=== PATIENT | female | born 1940 | race Caucasian/White ===

== ENCOUNTER 2020-07-25 02:15 | Outpatient (CLI) | payer MEDICARE, SELFPAY ==
[2020-07-25 17:02] LABS: SARS-CoV-2 RNA PCR Negative
== END 2020-07-25 02:16 | disposition home or self-care (01) ==
LOC: ANHCOVIDDT 02:15
PROVIDERS: PCP Family Medicine; Visit Provider Internal Medicine Critical Care Medicine
DX: Z20.828 Contact with and (suspected) exposure to other viral communicable diseases (principal)
CPT/HCPCS: 87635; C9803; U0003

== ENCOUNTER 2020-07-27 08:38 | Outpatient (CLI) | payer MEDICARE, SELFPAY ==
--- NOTE | 2020-08-21 06:16 | SLEEP_ITS ---
Basic nocturnal polysomnogram. DATE OF STUDY: 07/27/2020 ORDERING PHYSICIAN: Iván Gee M.D. REASON FOR THIS STUDY: Hypersomnia. PRIMARY CARE DOCTOR: Bladimir Myers M.D. HISTORY: This patient is a 80-year-old female, 66 inches tall, 224 pounds with a body mass index of 36.2. She has a history of sleep apnea in the past and did use CPAP previously. Her parts back counter man is referring her due to her current issues. She constantly awakens from sleep feeling short of breath. She denies snoring and says that nobody complains that her snoring is loud. She rarely has trouble sleeping if she has a cold. She denies waking up gasping for breath at night. She does not have breathing problems at night observed by others. She does not sweat excessively at night. She occasionally notices her heart pounding or beating irregularly at night. She does not fall asleep during the day, does not fall asleep involuntarily or while driving. She does not fall asleep during physical effort. She does not have loss of muscle tone with strong emotion. She does not have daytime difficulties due to excessive sleepiness. She constantly feels paralyzed when waking or falling asleep and constantly has vivid dreamlike scenes upon awakening or falling asleep. She is never afraid to go to sleep. She denies having nightmares. She does not remember her dreams. She frequently has racing thoughts, feelings of sadness, depression and anxiety. She does not have muscular tension. She does not notice parts of her body jerking. She constantly kicks at night. She denies crawly achy feelings in her legs at night and denies leg pain at night. She does not have morning jaw pain and does not grind her teeth during sleep. She is not bothered by pain during the day. She is not awakened by pain at night, does not wake up feeling stiff in the morning with sore achy muscles or pain in her neck and spine. She has palpitations and insomnia. She goes to bed at 11:30 p.m. and sleeps until 10:00 a.m. It takes her 1 hour to fall asleep. She is not sure how many times she wakes at night, but she does wake up at night. She denies taking naps. She does feel refreshed after short nap. She feels better in the evening than other times of day. MEDICAL COMORBIDITIES: Coronary artery disease, nonischemic cardiomyopathy, obesity, hypertension, dyslipidemia, history of ESTEBAN on CPAP in the past, GERD, paroxysmal atrial fibrillation, hypothyroidism. HOME MEDICATIONS: 1. Apple cider vinegar 500 mg tablet daily. 2. Calcium citrate 950 mg 1 daily. 3. Carvedilol 6.25 mg b.i.d. 4. Vitamin D3 5000 units daily. 5. Citalopram 40 mg a day. 6. Coenzyme Q10 100 mg daily. 7. Esomeprazole DR 40 mg daily. 8. Ezetimibe 10 mg daily. 9. Furosemide 20 mg a day. 10. Krill oil 1 capsule daily. 11. Losartan 100 mg daily. 12. Magnesium oxide 500 mg daily. 13. Oxybutynin XL 10 mg a day. 14. Potassium chloride ER 20 mEq daily. 15. Turmeric with other herbs 1 tablet daily. 16. Rivaroxaban 20 mg a day. 17. Zolpidem 5 mg at night. EF is 30% to 35% on echo May 06, 2020. HABITS: Alcohol 1 glass of wine a day. Never smoked tobacco. No mention of caffeine. DESCRIPTION OF THE STUDY: On the [place] Sleepiness Scale, her score is 3. This was conducted as an attended study in the lab using the [employer] multiple channel system including EOG, EEG, submental EMG, EKG, nasal and oral airflow using thermistors and nasal pressure sensors, chest and abdominal belts, body position data and pulse oximetry. The study was scored using [facility] guidelines. The duration of the study was 463.2 minutes. The sleep time was 187.8 minutes. Sleep efficiency was low at 40.5%. Sleep latency was prolonged at 151.4 minutes. There was no REM. She woke
== END 2020-07-27 08:39 | disposition home or self-care (01) ==
LOC: ANHCSM 08:39
PROVIDERS: PCP Family Medicine; Visit Provider Internal Medicine Cardiovascular Disease
DX: G47.10 Hypersomnia, unspecified (principal); G47.33 Obstructive sleep apnea (adult) (pediatric); Z68.36 Body mass index [BMI] 36.0-36.9, adult; I48.0 Paroxysmal atrial fibrillation; I42.8 Other cardiomyopathies; I49.5 Sick sinus syndrome; E78.5 Hyperlipidemia, unspecified; Z79.01 Long term (current) use of anticoagulants; Z95.5 Presence of coronary angioplasty implant and graft
CPT/HCPCS: 95810

== ENCOUNTER 2020-09-06 03:35 | Outpatient (CLI) | payer MEDICARE, SELFPAY ==
[2020-09-06 19:05] LABS: SARS-CoV-2 RNA PCR Negative
== END 2020-09-06 03:36 | disposition home or self-care (01) ==
LOC: ANHCOVIDDT 03:35
PROVIDERS: Internal Medicine Critical Care Medicine; PCP Family Medicine; Visit Provider Internal Medicine Cardiovascular Disease
DX: Z01.812 Encounter for preprocedural laboratory examination (principal); Z20.828 Contact with and (suspected) exposure to other viral communicable diseases
CPT/HCPCS: 87635; C9803; U0003

== ENCOUNTER 2020-09-08 02:44 | Day surgery (SDC) | payer MEDICARE, SELFPAY ==
[2020-09-07 15:12] VITALS: BMI 32.5
[2020-09-08] VITALS (11 sets, daily range): BP systolic 102–130; BP diastolic 84–102; PULSE 94–120; RESP 14–21; TEMP 36.4–36.6; O2SAT 93–98
[2020-09-08 07:29] LABS: Basophils Absolute Auto 0.1 K/mm3 (0.0-0.1); Eosinophils Absolute Auto 0.1 K/mm3 (0-0.3); Eosinophils Percent Auto 1.8 % (0-4.4); Hematocrit 43.4 % (37.0-47.0); Hemoglobin 14.4 g/dL (12.0-15.0); Immature Granulocyte Absolute 0.02 K/mm3 (0.00-0.031); Immature Granulocyte Percent A 0.3 % (0-0.5); Lymphocytes Absolute Auto 1.69 K/mm3 (0.9-3.2); Lymphocytes Percent Auto 23.1 % (18.3-44.2); Mean Corpuscular HGB Conc 33.2 g/dl (32-36); Mean Corpuscular Hemoglobin 30.8 pg (26-34); Mean Corpuscular Volume 92.9 fl (80-100); Mean Platelet Volume 9.4 fl (7.4-10.4); Monocytes Absolute Auto 0.7 K/mm3 (0.1-0.6); Monocytes Percent Auto 9.7 % (2.6-8.5); Neutrophils Absolute Auto 4.7 K/mm3 (1.3-6.7); Neutrophils Percent Auto 64.1 % (45.5-73.1); Platelet Count Result 255 k/mm3 (150-375); Red Blood Count 4.67 M/mm3 (4.2-5.4); Red Cell Distribution Width 14.2 % (11.5-14.5); White Blood Count 7.3 K/mm3 (4.5-10.0)
[2020-09-08 07:40] LABS: INR 1.1; Prothrombin Time 13.5 Seconds (11.1-14.7)
[2020-09-08 07:43] LABS: Anion Gap 13 mmol/L (8-16); Blood Urea Nitrogen 19 mg/dL (7-17); Calcium 9.4 mg/dL (8.4-10.2); Carbon Dioxide 25 mmol/L (22-30); Chloride 100 mmol/L (98-107); Estimated CRCL calculation 31 ml/min; Estimated Glomerular Filt Rate 33; Glucose 134 mg/dL (65-105); Potassium 4.1 mmol/L (3.4-5.0); Sodium 138 mmol/L (137-145)
--- NOTE | 2020-09-08 08:45 | WPDHPUPDATE1 ---
History and Physical Update Update Date/Time: 09/08/20 08:45 History and Physical has been reviewed, including an updated exam of the patient. There are NO changes in the patient's condition. Risks, benefits, and alternatives have been discussed and questions answered. Patient agrees to proceed with procedure. Please see moderate sedation physical examination for history and physical update addendum.
--- NOTE | 2020-09-08 08:45 | WPDMODSED ---
Moderate Sedation Note-Pt Data Patient Data Diagnosis: Abnormal stress test, angina, CAD Present Complaint: none Procedure to be performed/Plan: left heart catheterization with selective left and right coronary angiography with left ventriculography and hemodynamics and possible percutaneous intervention and stent implantation Allergies Allergy/AdvReac Type Severity Reaction Status Date / Time povidone-iodine Allergy Mild blisters Verified 07/02/18 08:19 Btryciu-Ddd-Wsz Reductase Allergy Unknown ACHY Verified 07/02/18 08:19 Inhibitor MUSCLES Home Medications Medication Instructions Recorded Confirmed Type calcium citrate 500 mg PO BID 09/07/20 09/07/20 History carvedilol [Coreg] 6.25 mg PO 5XW 09/07/20 09/07/20 History cholecalciferol (vitamin D3) 125 mcg PO BID 09/07/20 09/07/20 History [Vitamin D3] citalopram 40 mg PO DAILY 09/07/20 09/07/20 History coenzyme L53-vptadmt E [CoQ10 SG 1 cap PO DAILY 09/07/20 09/07/20 History 100] ezetimibe 10 mg PO DAILY 09/07/20 09/07/20 History furosemide [Lasix] 20 mg PO AC 09/07/20 09/07/20 History uuzna-hv-8-cjc-dvd-zcdxfuf-ast 1 cap PO BID 09/07/20 09/07/20 History [krill oil] losartan [Cozaar] 50 mg PO DAILY 09/07/20 09/07/20 History magnesium 1,500 mg PO DAILY 09/07/20 09/07/20 History oxybutynin chloride 10 mg PO DAILY 09/07/20 09/07/20 History potassium chloride [Klor-Con M20] 20 meq PO DAILY 09/07/20 09/07/20 History rivaroxaban [Xarelto] 20 mg PO DAILY 09/07/20 09/07/20 History zolpidem 5 mg PO DAILY PRN 09/07/20 09/07/20 History Current Medications: Active Medications Sodium Chloride (Normal Saline Iv) 500 mls @ 100 mls/hr IV CONT .Q5H SHELLIE Sedation/Anesthesia: No previous sedation/anesthesia problems (including family history). [facility] Past Medical History Medical History CAD (coronary artery disease) Chronic kidney disease Dyslipidemia Hypertension Paroxysmal atrial fibrillation Social History Social History Smoking packs per day: 0 Smoking cigarettes per day: 0.0 Second hand tobacco smoke exposure: No Alcohol intake: current Drinks per week: 0 Substance use: never Substance use type: does not use Living arrangements: with family Gender identity (if verbalized by the patient): Female Spiritual care concerns: No Mod Sed Physical Exam Physical Exam Pre Procedural Exam: Normal: Appearance, Eyes, Ears, Nose, Neck ( supple, normal range of motion), Throat ( posterior hypopharynx clear, nonerythematous), Airway ( clear, normal anatomy), Lungs ( lungs clear to auscultation bilaterally), Heart Size, Heart Rate, Neuro Exam, Abdomen, Liver, Kidneys, Extremities and Skin and Variation: Heart Rhythm ( irregular irregular) Hours since solid foods: 12 Hours since liquid intake: 12 Internal Medicine - PN: Obj Da Vital Signs Vital Signs: Vital Signs - 24 hr 09/08/20 07:21 Temperature 36.4 C Pulse Rate 120 H Respiratory Rate 14 Blood Pressure 129/102 H Pulse Oximetry 97 Meds/Results Medications: Active Medications Generic Name Dose Route Start Last Admin Trade Name Freq PRN Reason Stop Dose Admin Sodium Chloride 500 mls @ 100 mls/hr 09/08/20 06:00 Normal Saline Iv IV CONT .Q5H SHELLIE Labs CBC & Chem 7: 09/08/20 07:18 09/08/20 07:18 Labs: Laboratory Results - last 24 hr 09/08/20 09/08/20 09/08/20 07:18 07:18 07:18 WBC 7.3 RBC 4.67 Hgb 14.4 Hct 43.4 MCV 92.9 MCH 30.8 MCHC 33.2 RDW 14.2 Plt Count 255 MPV 9.4 Immature Gran % (Auto) 0.3 Neut % (Auto) 64.1 Lymph % (Auto) 23.1 Butts % (Auto) 9.7 H Eos % (Auto) 1.8 Baso % (Auto) 1.0 Lymph # (Auto) 1.69 Butts # (Auto) 0.7 H Eos # (Auto) 0.1 Baso # (Auto) 0.1 Abs Immat Gran (auto) 0.02 Absolute Neuts (auto) 4.7 Absolute Nucleated RBC 0.0 Nucleat
--- NOTE | 2020-09-08 09:50 | PM.PROC ---
Procedure Note - Detailed Date of procedure: 09/08/20 Pre-op diagnosis: Abnormal Stress Test CAD Post-op diagnosis: same Procedure performed: left heart catheterization with selective left and right coronary angiography with left ventricular hemodynamics Description of procedure: BRIEF HISTORY OF PRESENT ILLNESS: Patient is a pleasant 80-year-old female with a history of atrial fibrillation, hypertension, dyslipidemia, statin myopathy, ESTEBAN on CPAP, CAD status post 2.75 x 15 mm drug-eluting stent to mid LAD 2016, history of nonischemic cardiomyopathy who complains of progressive fatigue, exertional dyspnea, chest discomfort who underwent noninvasive ischemic evaluation which revealed anterior, anteroseptal, apical ischemia with small fixed component EF 34% referred for left heart catheterization for delineation of her coronary anatomy. She had a stress test in 2019 interpreted as normal without ischemia. PROCEDURES PERFORMED: 1. Left heart catheterization 2. Selective left and right coronary angiography 3. Left ventricular hemodynamics 4. Moderate/conscious sedation administration CATHETERS UTILIZED: Left coronary system- 5 Panamanian JL4 catheter Right coronary system- 5 Panamanian JR4 catheter Left ventriculography and hemodynamics- 5 [place]amanian angled pigtail catheter PROCEDURE IN DETAIL: After verbal and written informed consent was obtained the patient, risks, benefits, and alternatives explained in detail the patient agreed to proceed with the plan of care as outlined above. The patient was subsequently brought to the cardiac catheterization lab, placed on the cardiac catheterization table, and prepped and draped in the usual sterile fashion. Utilizing approximately 18cc of 1% subcutaneous Lidocaine, the right groin was then locally anesthetized. Utilizing the modified Seldinger technique, a 5 [place]amanian arterial vascular access sheath was inserted in the right common femoral artery easily and without complications. Through this access, coronary angiography was subsequently obtained in multiple standard re-projections. Following this, a 5 [place]ian angled pigtail catheter was advanced retrograde across aortic valve into the cavity of the left ventricle. Left ventriculography was not performed in the interest of sparing contrast due to renal insufficiency, however, pullback across aortic valve was subsequently recorded. The vascular access sheath and angiographic catheters were flushed before and after catheter exchanges. At the conclusion of the diagnostic portion of the procedure, all angiographic guidewires and catheters were removed and the 5 [place]amanian arterial vascular access sheath was then pulled and satisfactory hemostasis was achieved using manual compression. There no complications noted at the conclusion of the diagnostic portion of the study. MODERATE SEDATION/ANESTHESIA ADMINISTRATION: Patient reports no prior problems with sedation/anesthesia. Please see pre-sedation noted for physical examination documentation. Sedation start time was 0855 and end time was 0932 for a total intra-service/procedure face-face time of 37 minutes. A total of 1 mg intravenous Versed and a total of 50 mcg intravenous Fentanyl, and 50mg IV Benadryl was administered for moderate sedation. Moderate sedation was administered by qualified/certified observer Antonietta Richards RN under my supervision with intra-procedure [id number] observation and management throughout the entirety of the procedure. There were no other issues or complications and patient tolerated the procedure well. See post-anesthesia documentation. Anesthesia: local and other (moderate/conscious sedation) Surgeon: Iván Gee MD Estimated blood loss (mL): 10 Drains: No Packing: No Pathology: none sent Complications: No immediate complications Condition: stable Disposition: observation Findings: CORONARY ANGIOGRAPHY: The LEFT MAIN arose from the left coronary cusp with approx
--- NOTE | 2020-09-08 11:39 | SUR.PHASEII ---
1030-Sheath pulled completed by Malissa Loza RN. Groin soft and non-tender, no evidence of bleeding or hematoma noted. Moderate right RT pulse noted. Will continue to monitor.
--- NOTE | 2020-09-08 11:42 | SUR.PHASEII ---
1130-pt up to thirty degrees. No distress noted. AOx4. Groin soft and non-tender, no evidence of bleeding or hematoma noted. Will continue to monitor.
== END 2020-09-08 14:30 | disposition home or self-care (01) ==
PROVIDERS: PCP Family Medicine; Visit Provider Internal Medicine Cardiovascular Disease
PROC: 4A023N7 Measurement of Cardiac Sampling and Pressure, Left Heart, Percutaneous Approach (ICD-10-PCS; CPT 93452; principal; 2020-09-08 08:30)
DX: I25.10 Atherosclerotic heart disease of native coronary artery without angina pectoris (principal); R94.39 Abnormal result of other cardiovascular function study; I48.0 Paroxysmal atrial fibrillation; I12.9 Hypertensive chronic kidney disease with stage 1 through stage 4 chronic kidney disease, or unspecified chronic kidney disease; N18.9 Chronic kidney disease, unspecified; E78.5 Hyperlipidemia, unspecified; G47.33 Obstructive sleep apnea (adult) (pediatric); Z95.5 Presence of coronary angioplasty implant and graft; Z79.01 Long term (current) use of anticoagulants
CPT/HCPCS: 36415; 80048; 85025; 85610; 93458; C1887; C1894; J0461; J1200; J1644; J2250; J3010; J7040

== ENCOUNTER 2020-09-12 11:01 | Outpatient (CLI) | payer MEDICARE, SELFPAY ==
[2020-09-12 11:56] LABS: Anion Gap 11 mmol/L (8-16); Blood Urea Nitrogen 29 mg/dL (7-17); Calcium 8.8 mg/dL (8.4-10.2); Carbon Dioxide 23 mmol/L (22-30); Chloride 98 mmol/L (98-107); Estimated Glomerular Filt Rate 36; Glucose 120 mg/dL (65-105); Potassium 3.9 mmol/L (3.4-5.0); Sodium 132 mmol/L (137-145)
== END 2020-09-12 11:02 | disposition home or self-care (01) ==
LOC: ANHLAB 11:05
PROVIDERS: PCP Family Medicine; Visit Provider Nurse Practitioner Adult Health
DX: I25.10 Atherosclerotic heart disease of native coronary artery without angina pectoris (principal); I48.0 Paroxysmal atrial fibrillation; N18.9 Chronic kidney disease, unspecified
CPT/HCPCS: 36415; 80048

== ENCOUNTER 2020-09-15 03:04 | Outpatient (CLI) | payer MEDICARE, SELFPAY ==
[2020-09-15 18:02] LABS: SARS-CoV-2 RNA PCR Negative
== END 2020-09-15 03:05 | disposition home or self-care (01) ==
LOC: ANHCOVIDDT 03:04
PROVIDERS: PCP Family Medicine; Visit Provider Internal Medicine Critical Care Medicine
DX: Z01.812 Encounter for preprocedural laboratory examination (principal); Z20.828 Contact with and (suspected) exposure to other viral communicable diseases
CPT/HCPCS: 87635; C9803; U0003

== ENCOUNTER 2020-09-18 08:43 | Outpatient (CLI) | payer MEDICARE, SELFPAY ==
--- NOTE | 2020-10-18 14:11 | WPDSLEEPSTUD ---
Sleep Study Date of Study: 09/18/20 Ordering Provider: Iván Gee MD Interpreting Physician: Natasha Cornejo MD Sleep Study Type: CPAP Titration Height: 1.68 m Weight: 90.718 kg Body Mass Index: 32.3 Neck Circumference: 40.64 cm Nichols: 3 Reason for Sleep Study CPAP titration for sleep apnea. She had a nocturnal polysomnogram on July 27, 2020 showing severe obstructive sleep apnea with an AHI of 46.3 worse in the supine position. The supine AHI was 69.4. Her EF is low at 30% therefore she had a CPAP titration in the sleep lab. She also had a prolonged sleep latency on the initial study. Sleep History Aster Nevarez is a 80-year-old female with a history of sleep apnea and did use CPAP previously. Her home security alarm installer is referring her due to her current issues. She constantly awakens from sleep feeling short of breath. She denies snoring and says that nobody complains that her snoring is loud. She rarely has trouble sleeping if she has a cold. She denies waking up gasping for breath at night. She does not have breathing problems at night observed by others. She does not sweat excessively at night. She occasionally notices her heart pounding or beating irregularly at night. She does not fall asleep during the day, does not fall asleep involuntarily or while driving. She does not fall asleep during physical effort. She does not have loss of muscle tone with strong emotion. She does not have daytime difficulties due to excessive sleepiness. She constantly feels paralyzed when waking or falling asleep and constantly has vivid dreamlike scenes upon awakening or falling asleep. She is never afraid to go to sleep. She denies having nightmares. She does not remember her dreams. She frequently has racing thoughts, feelings of sadness, depression and anxiety. She does not have muscular tension. She does not notice parts of her body jerking. She constantly kicks at night. She denies crawly achy feelings in her legs at night and denies leg pain at night. She does not have morning jaw pain and does not grind her teeth during sleep. She is not bothered by pain during the day. She is not awakened by pain at night, does not wake up feeling stiff in the morning with sore achy muscles or pain in her neck and spine. She has palpitations and insomnia. She goes to bed at 11:30 p.m. and sleeps until 10:00 a.m. It takes her 1 hour to fall asleep. She is not sure how many times she wakes at night, but she does wake up at night. She denies taking naps. She does feel refreshed after short nap. She feels better in the evening than other times of day. MEDICAL COMORBIDITIES: Coronary artery disease, nonischemic cardiomyopathy, obesity, hypertension, dyslipidemia, history of ESTEBAN on CPAP in the past, GERD, paroxysmal atrial fibrillation, hypothyroidism. [facility] Past Medical History Medical History CAD (coronary artery disease) [facility] 09/08/20 with 50% proximal and mid LAD, LCX 40-50% stenosis, nondominant small caliber RCA with widely patent previously placed stent mid LAD. Again identified is the subtotal occlusion 99% of the 2nd obtuse marginal branch with [id number] collateral filling largely unchanged compared to [facility] 2017. CHF (congestive heart failure) Chronic kidney disease Depression with anxiety Dyslipidemia Hypertension Hypothyroid Mitral regurgitation ESTEBAN (obstructive sleep apnea) Paroxysmal atrial fibrillation Surgical History Surgical History History of cataract surgery History of cholecystectomy History of tonsillectomy Family History Family History Father Acute myocardial infarction Sibling Diabetes mellitus Mother Dementia Social History Social History Social History: Patient smoked 2 packs per day fo
[2020-10-18 14:20] VITALS: BMI 32.3
== END 2020-09-18 08:44 | disposition home or self-care (01) ==
LOC: ANHCSM 08:51
PROVIDERS: PCP Family Medicine; Visit Provider Internal Medicine Cardiovascular Disease
DX: G47.33 Obstructive sleep apnea (adult) (pediatric) (principal)
CPT/HCPCS: 95811

== ENCOUNTER 2020-10-11 01:05 | Inpatient (IN) | payer MEDICARE, SELFPAY ==
[2020-10-11] VITALS (24 sets, daily range): BP systolic 90–129; BP diastolic 67–108; PULSE 80–120; RESP 18–28; TEMP 35.9–36.8; O2SAT 94–100; BMI 32.3
--- NOTE | 2020-10-11 | ECHO_ITS ---
Patient Info Name: Aster Nevarez Age: 80 years : 1940 Gender: Female Ht: 66 in Wt: 200 lbs BSA: 2.09 m2 HR: 98 bpm BP: 90 / 78 mmHg Heart Rhythm: Atrial Fibrillation Technical Quality: Good Exam Date: 10/11/2020 12:49 PM Exam Location: [facility] Pulmonary Exam Room: 201 Patient Status: Inpatient Admit Date: 10/11/2020 Staff Ordering Physician: Arias Garces MD Snap Attacher: Latanya Soto RCS Attending Provider: Arias Garces MD Exam Type: CA echo dop color flow w con Study Info Indications - cad htn cpap sob Complete two-dimensional, color flow and Doppler transthoracic echocardiogram is performed with contrast to opacify the left ventricle and to improve the deliniation of the left ventricle endocardial borders. Contrast/Agitated Saline Contrast/Ag. Saline: Definity Amount: 1.00 ml Summary 1. Left ventricular chamber dimension is moderately enlarged. 2. Left ventricular systolic function is severely reduced, estimated at <15%. 3. There is no increased left ventricular wall thickness. 4. The left ventricular diastolic function is indeterminate. 5. There is no thrombus visualized in the left ventricle. 6. Right ventricular chamber dimension is mildly enlarged. 7. Right ventricular systolic function is reduced. 8. Left atrial chamber dimension is severely enlarged. 9. Right atrial chamber dimension is moderately enlarged. 10. There is moderate aortic valve calcification. 11. There is moderate to severe mitral valve regurgitation. 12. There is moderate to severe tricuspid valve regurgitation. 13. Moderate pulmonary hypertension, estimated pulmonary arterial systolic pressure is 53 mmHg. Left Ventricle Left ventricular chamber dimension is moderately enlarged. Left ventricular systolic function is severely reduced, estimated at <15%. There is no increased left ventricular wall thickness. The left ventricular diastolic function is indeterminate. There is no thrombus visualized in the left ventricle. Right Ventricle Right ventricular chamber dimension is mildly enlarged. Right ventricular systolic function is reduced. Left Atria Left atrial chamber dimension is severely enlarged. Right Atria Right atrial chamber dimension is moderately enlarged. Atrial Septum Intact interatrial septum visualized by color flow imaging. Aortic Valve The aortic valve is trileaflet. There is no aortic valve stenosis. There is trace aortic valve regurgitation. There is moderate aortic valve calcification. Pulmonic Valve The pulmonic valve is normal. There is no pulmonic valve stenosis. There is mild pulmonic regurgitation. Mitral Valve The mitral valve has calcified annulus. There is no mitral valve stenosis. There is moderate to severe mitral valve regurgitation. Tricuspid Valve The tricuspid valve leaflets are normal. There is no significant tricuspid valve stenosis. There is moderate to severe tricuspid valve regurgitation. Moderate pulmonary hypertension, estimated pulmonary arterial systolic pressure is 53 mmHg. Pericardium/Pleural The pericardium appears normal. There is small pericardial effusion. Inferior Vena Cava Dilated inferior vena cava with <50% collapse upon inspiration consistent with elevated right atrial pressure, 15 mmHg. Aorta The aortic root size at the sinus of Valsalva is normal. There is mild aortic atherosclerosis. Left Ventricular Out
--- NOTE | ~2020-10-11 | XR_ITS ---
XR chest 1V portable DATE: 10/14/2020 05:57 INDICATION: Congestive heart failure, dyspnea. Hypotension. TECHNIQUE: Portable AP chest on 10/11 2020 at 0532 hours COMPARISON: 10/12/2020 portable AP chest at [address] abdomen pelvis FINDINGS: Cardiomegaly. Aortic calcification, ectasia. Increased retrocardiac density likely due to hiatal hernia, which was demonstrated on 07/01/2017 CT ab domen examination. There is left lower lobe infiltrate and/atelectasis. The lungs otherwise appear essentially clear. No pleural effusion or pulmonary vascular congestion or pneumothorax. IMPRESSION: Cardiomegaly, aortic atherosclerosis Large hiatal hernia Left lower lobe infiltrate and/atelectasis Reviewed, dictated and finalized at location A. IC FLOOR LAYER
--- NOTE | ~2020-10-11 | XR_ITS ---
XR chest 1V portable DATE: 10/12/2020 06:47 INDICATION: Congestive heart failure, shortness of breath TECHNIQUE: Portable AP chest on 10/12/2020 at 0525 hours COMPARISON: 10/11/2020 portable AP chest at 0138 hours FINDINGS: Cardiomegaly. There is pulmonary vascular redistribution suggesting pulmonary venous hypert ension. Aortic calcification, ectasia and tortuosity. The lungs are hyperinflated, suggesting possible COPD. The elderly chest however considerably this ap pearance clinical correlation is necessary. There is mild infiltrate or atelectasis in the lower lung zones, left greater than right. Diffuse osteopenia. IMPRESSION: Cardiomegaly, pulmonary vascular redistribution, suggesting mild congestive heart failure ; this appears mildly improved since 10/11/2020 Infiltrate and/atelectasis in the lower lung zones, left greater than right, stable or mildly improve d since 10/11 Reviewed, dictated and finalized at location A. TOSE LOADER IMPRESSION: Cardiomegaly, pulmonary vascular redistribution, suggesting mild co ngestive heart failure; this appears mildly improved since 10/11/2020 Infiltrate and/atelectasis in the lower lung zones, left greater than right, st able or mildly improved since 10/11
--- NOTE | ~2020-10-11 | XR_ITS ---
XR chest 1V portable 10/11/2020 01:40 Indication: Shortness of breath Procedure: AP portable chest Comparison: Comparison to multiple prior studies sequentially, with oldest reviewed study dated . Findings: Cardiomegaly. Diffuse bilateral airspace disease. Large hiatal hernia. There is atheroscler osis. No significant effusion or pneumothorax. Impression: 1: Diffuse bilateral airspace disease may represent edema or pneumonia. 2: Cardiomegaly. 3: Large hiatal hernia. Reviewed, dictated and finalized at location A. IUM BURNER Impression: 1: Diffuse bilateral airspace disease may represent edema or pneumonia. 2: Cardiomegaly. 3: Large hiatal hernia.
--- NOTE | ~2020-10-11 | US_ITS ---
EXAMINATION: US art doppler w press LE BI DATE: 10/11/2020 11:43 CHARGE LOADER INDICATION: Poor peripheral pulses TECHNIQUE: Segmental pressures and plethysmographic and Doppler waveforms of the brachial and lower e xtremity arteries were obtained. COMPARISON: None. FINDINGS: Right and left brachial artery pressures of 109 mm Hg and 113 mm Hg, respectively, are concordant (no rmal difference <= 30 mmHg). The right high-thigh pressure index is 1.26 (normal > 1.2). The right ankle-brachial index (RED) is 0 .95 (normal >= 0.9-1.0). The right great toe-brachial index (TBI) is 0.74 (normal >= 0.60). The right lower extremity segmental pressure gradients are normal (normal gradients <= 20-30 mmHg between pio cent levels on the same leg or the same levels on the two legs). Arterial Doppler waveforms are bipha sic. The left high-thigh pressure index is 1.27. The left RED is 1.02. The left TBI is 0.85. The left lowe r extremity segmental pressure gradients are normal. Arterial Doppler waveforms are biphasic. IMPRESSION: 1. Normal bilateral lower extremity arterial Doppler. Reviewed, dictated and finalized at location A. GE LOADER
--- NOTE | 2020-10-11 01:19 | ECG_ITS ---
Measurements Intervals [place] Rate: 106 P: GA: 0 QRS: -72 QRSD: 142 T: 85 QT: 399 QTc: 531 Interpretive Statements ATRIAL FIBRILLATION WITH RAPID VENTRICULAR RESPONSE LEFT AXIS DEVIATION LEFT BUNDLE BRANCH BLOCK ABNORMAL ECG Electronically Signed On 10-11-2020 7:26:44 [employer] by Efraín Almendarez D.O.
--- NOTE | 2020-10-11 01:20 | ED.SOB ---
HPI - SOB/Dyspnea General Chief Complaint: Shortness of Breath/Dyspnea Stated Complaint: SOB History of Present Illness HPI Narrative: 80 yo female with h/o chf, a-fib presents to the ED for SOB. She reports that she awoke early this morning very SOB and with heart racing. She says that she has had these symptoms for a while. She was diagnosed with atrial fibrillation. Symptoms have been getting worse. Noted to be cyanotic with low O2 sat by EMS and placed on NRB. No CP, fever, cough. Related Data Home Medications Medication Instructions Recorded Confirmed Xarelto 20 mg PO DAILY 09/07/20 09/07/20 calcium citrate 500 mg PO BID 09/07/20 09/07/20 cholecalciferol (vitamin D3) 125 mcg PO BID 09/07/20 09/07/20 [Vitamin D3] coenzyme Q21-tlmrjpm E 1 cap PO DAILY 09/07/20 09/07/20 ezetimibe 10 mg PO DAILY 09/07/20 09/07/20 furosemide [Lasix] 20 mg PO DAILY 09/07/20 09/07/20 sydaa-qy-9-aod-khe-jtskrin-ast 2 cap PO DAILY 09/07/20 09/07/20 [krill oil] losartan [Cozaar] 50 mg PO DAILY 09/07/20 09/07/20 magnesium 1,500 mg PO DAILY 09/07/20 09/07/20 oxybutynin chloride 10 mg PO DAILY 09/07/20 09/07/20 potassium chloride [Klor-Con M20] 20 meq PO DAILY 09/07/20 09/07/20 zolpidem 5 mg PO DAILY PRN 09/07/20 09/07/20 amiodarone 400 mg PO BID 10/11/20 apple cider vinegar 1,000 mg PO BID 10/11/20 esomeprazole magnesium 40 mg PO DAILY 10/11/20 Allergies Allergy/AdvReac Type Severity Reaction Status Date / Time povidone-iodine Allergy Mild blisters Verified 10/11/20 01:48 Bkrndwu-Dyy-Lhx Reductase Allergy Unknown ACHY Verified 10/11/20 01:48 Inhibitor MUSCLES Review of Systems Review of Systems: All systems reviewed & are unremarkable except as noted in HPI and below Constitutional: Constitutional: Denies chills and Denies fever(s) Cardiovascular: Cardiovascular: Denies chest pain and Reports rapid heart rate Respiratory: Respiratory: Reports cough and Reports dyspnea Gastrointestinal: Gastrointestinal: Denies nausea and Denies vomiting Musculoskeletal: Musculoskeletal: Denies back pain Neurologic: Reports weakness Endocrine: Endocrine: Denies polydipsia [facility] Past Medical History Medical History CAD (coronary artery disease) Chronic kidney disease Dyslipidemia Hypertension Paroxysmal atrial fibrillation Social History Social History Smoking packs per day: 0 Smoking cigarettes per day: 0.0 Smoking status: Never smoker Second hand tobacco smoke exposure: No Alcohol intake: current Drinks per week: 0 Substance use: never Substance use type: does not use Gender identity (if verbalized by the patient): Female Spiritual care concerns: No Exam Const: General: no acute distress, alert and ill appearing Nutritional Appearance: obese Orientation/consciousness: patient oriented x3 HENMT: Other: cyanosis of nose, lips, and ears Eyes: Pupils: Equal, round and reactive pupils present Resp: Effort & Inspection: tachypneic Auscultation: rales Cardio: Rate: tachycardic Rhythm: abnormal rhythm irregularly irregular GI: GI Palp: Yes Soft to palpation and No Tenderness to palpation present (GI) Skin: Other: cool extremities Neuro: General: patient oriented x3 and moves all extremities Speech: normal speech Extrem: General: edema (2+ to bilateral feet and ankles) Course Vital Signs Vital signs: Vital Signs Blood Pressure 98/67 L 10/11/20 00:56 Pulse Oximetry 94 10/11/20 00:56 Temperature 36.8 C 10/11/20 01:46 Pulse Rate 94 10/11/20 01:46 Respiratory Rate 21 H 10/11/20 01:46 Blood Pressure 104/87 10/11/20 01:46 Pulse Oximetry 94 10/11/20 01:46 MDM - SOB/Dyspnea MDM Narrative Medical decision making narrative: She has is in a-fib w/ RVR which is causing a CHF exacerbation. Rate is is moderately controlled and BP is at the low end so I will not
[2020-10-11 01:39] LABS: Basophils Absolute Auto 0.1 K/mm3 (0.0-0.1); Eosinophils Absolute Auto 0.2 K/mm3 (0-0.3); Eosinophils Percent Auto 2.2 % (0-4.4); Hematocrit 43.4 % (37.0-47.0); Hemoglobin 14.1 g/dL (12.0-15.0); Immature Granulocyte Absolute 0.03 K/mm3 (0.00-0.031); Immature Granulocyte Percent A 0.4 % (0-0.5); Lymphocytes Absolute Auto 1.76 K/mm3 (0.9-3.2); Lymphocytes Percent Auto 26.1 % (18.3-44.2); Mean Corpuscular HGB Conc 32.5 g/dl (32-36); Mean Corpuscular Hemoglobin 29.2 pg (26-34); Mean Corpuscular Volume 89.9 fl (80-100); Mean Platelet Volume 9.9 fl (7.4-10.4); Monocytes Absolute Auto 0.8 K/mm3 (0.1-0.6); Monocytes Percent Auto 11.1 % (2.6-8.5); Neutrophils Percent Auto 59.2 % (45.5-73.1); Platelet Count Result 236 k/mm3 (150-375); Red Blood Count 4.83 M/mm3 (4.2-5.4); White Blood Count 6.7 K/mm3 (4.5-10.0)
[2020-10-11 01:53] LABS: Anion Gap 10 mmol/L (8-16); Blood Urea Nitrogen 24 mg/dL (7-17); Calcium 9.1 mg/dL (8.4-10.2); Carbon Dioxide 22 mmol/L (22-30); Chloride 103 mmol/L (98-107); Estimated Glomerular Filt Rate 31; Glucose 131 mg/dL (65-105); Partial Thromboplastin Time 46.5 SECONDS (22.3-36.8); Potassium 5.4 mmol/L (3.4-5.0); Prothrombin Time 52.5 Seconds (11.1-14.7); Sodium 135 mmol/L (137-145)
[2020-10-11 02:05] LABS: INR 5.9; NT Pro B Type Natriuretic Pept 17400 PG/ML (5-100); Troponin I < 0.012 ng/mL (0.000-0.034)
[2020-10-11] MEDS: FUROSEMIDE INJ 40 MG/4 ML VIAL IV PUSH ×2 (03:25→20:29)
--- NOTE | 2020-10-11 05:39 | ADMGEN ---
This patient, Aster Nevarez, was admitted to IMU Room 201-01. Patient/family oriented to hospital policies and general routines including ID bracelet, bed and alarms, visiting hours, pain management, procedures, bathroom and other care routines, personal items, smoking policy, room service/diet, and visiting hours. Information on how to activate the Rapid Response Team has been discussed. Patient/Family are encouraged to report perceived risks to care and to ask questions if they do not understand what they are told or what they should do.
[2020-10-11 08:02] LABS: Anion Gap 13 mmol/L (8-16); Blood Urea Nitrogen 24 mg/dL (7-17); Calcium 9.2 mg/dL (8.4-10.2); Carbon Dioxide 21 mmol/L (22-30); Chloride 103 mmol/L (98-107); Estimated CRCL calculation 28 ml/min; Estimated Glomerular Filt Rate 29; Glucose 113 mg/dL (65-105); Sodium 137 mmol/L (137-145)
--- NOTE | 2020-10-11 09:08 | PM.IMHP ---
H&P: HPI History of Present Illness Date/Time: 10/11/20 09:08 Chief complaint: a-fib w/RVR, CHF exacerbation Narrative: Aster Nevarez is a 80 year old female with CAD, HTN and CHF here for SOB. Patient states that over the past 4-5 nights, she has had orthopnea symptoms. She denies any lower extremity edema. She has been compliant with her CPAP. She did have a sleep study over a month ago showing severe obstructive symptoms with plans for further titration of her Pap therapy. This has not been completed yet however. She denies any fever or chills. There has been no weight changes. She does have a dry cough that has been going on for few weeks now. She denies any chest pain. No exposure to COVID. She does have paroxysmal atrial fibrillation. She does have frequent palpitations usually worse with activity. She is scheduled for an ablation on 10/30/2020 at [facility]. She is compliant with her anticoagulation. She denies any recent anosmia or dysgeusia. No headaches or sore throat. No nausea, vomiting or diarrhea. No melena or hematochezia. No epistaxis. No dysuria or hematuria. No claudication symptoms. Family has been telling the patient she needs to go to the hospital past few days but she has refused. Last evening around 1030pm she went to bed but every time she tried to fall sleep she was awoken with shortness of breath. At this point she contacted 911. On EMS arrival patient had a blood pressure of 180/130 and a pulse of 100. She was 70% on room air. She required 15L non-rebreather mask to improve her saturations. She is brought to the emergency room evaluation. Blood pressure was 98/67 with a pulse of 106. She was 94% on a non-rebreather mask. BNP was [address]. EKG reviewed showing atrial fibrillation with RVR rate of 106 and a left bundle branch block. It is unclear if the bundle branch block is new or old. INR 5.9. Potassium was 5.4. Troponin x1 was negative. CXR reviewed personally and showed diffuse bilateral airspace disease either edema versus pneumonia. She was given Lasix 40 mg IV once. She states she did not have excessive voiding with this treatment. She was admitted for further care Review of Systems Review of Systems: All systems reviewed & are unremarkable except as noted in HPI and below PMFSH Past Medical History Medical History (Updated 10/14/20 @ 10:54 by Floresita Kennedy MD) CAD (coronary artery disease) [facility] 09/08/20 with 50% proximal and mid LAD, LCX 40-50% stenosis, nondominant small caliber RCA with widely patent previously placed stent mid LAD. Again identified is the subtotal occlusion 99% of the 2nd obtuse marginal branch with [id number] collateral filling largely unchanged compared to [facility] 2017. CHF (congestive heart failure) Chronic kidney disease Depression with anxiety Dyslipidemia Hypertension Hypothyroid Mitral regurgitation ESTEBAN (obstructive sleep apnea) Paroxysmal atrial fibrillation Surgical History Surgical History History of cataract surgery History of cholecystectomy History of tonsillectomy Family History Family History Father Acute myocardial infarction Sibling Diabetes mellitus Mother Dementia Social History Social History Social History: Patient smoked 2 packs per day for 10 years quit in 1969. She drinks 1-2 alcoholic drinks per week. No drug use. She is a full code. She nominated her to be the individual who would make medical decisions for her if she is not able. She lives at home with her and a friend of the family. Smoking packs per day: 2 Smoking cigarettes per day: 40.0 Years smoked: 29 Smoking pack-years: 58.00 Smoking status: Former smoker Tobacco type: cigarettes Second hand tobacco smoke exposure: Yes Alcohol intake: current Drinks per w
[2020-10-11] MEDS: AMIODARONE HCL 200 MG TABLET 400 MG PO (12:03)
[2020-10-11] MEDS: METOPROLOL SUCCINATE EXT REL 50 MG TABCR PO (12:03)
[2020-10-11] MEDS: CALCIUM CARBONATE (OSCAL) 500 MG TABLET 1000 MG PO ×2 (12:03→16:18)
[2020-10-11] MEDS: PANTOPRAZOLE 40 MG TABLET PO (12:03)
[2020-10-11] MEDS: TOLNAFTATE 1% POWDER 45 GM BTL 1 APPLIC TOPICAL ×2 (12:04→20:30)
[2020-10-11] MEDS: EZETIMIBE 10 MG TABLET PO (12:04)
[2020-10-11] MEDS: PERFLUTREN LIPID MICROSPHERES 1.5 ML VIAL DILUTED TO 10 ML TOTAL VOLUME IV PUSH (13:23)
--- NOTE | 2020-10-11 14:19 | PM.CNCAR ---
Assessment and Plan Assessment and plan (1) Atrial fibrillation with RVR: Code(s): I48.91 - Unspecified atrial fibrillation Status: Acute Assessment and Plan: Will start her on amiodarone drip without bolus. Hold oral amiodarone for now. Resume Xarelto but at a lower dose of 15 mg daily given her renal failure. This may need to be increased back up to 20 mg daily depending on how her kidney function improved. Her supratherapeutic INR means very little with direct oral anticoagulants. (2) CAD (coronary artery disease): Code(s): I25.10 - Atherosclerotic heart disease of circle coronary artery without angina pectoris Status: Acute Assessment and Plan: As detailed above. moderate disease. (3) Hypertension: Code(s): I10 - Essential (primary) hypertension Status: Acute Assessment and Plan: Controlled (4) Dyspnea: Code(s): R06.00 - Dyspnea, unspecified Status: Acute Assessment and Plan: Probably related to systolic heart failure but cannot exclude other etiologies ED including even Coronavirus. (5) CHF (congestive heart failure): Code(s): I50.9 - Heart failure, unspecified Status: Acute Assessment and Plan: 2D echocardiogram with Doppler. Likely systolic in etiology. Possibly related tachycardic induced versus left bundle-branch block etiology. Metoprolol succinate 25 mg p.o. daily and up titrate as able. Reduce losartan 25 mg p.o. daily because of acute renal failure. History of Present Illness History of Present Illness Consult date/time: 10/11/20 14:19 Requesting physician: Arias Garces MD Consult reason: atrial fibrillation Reason For Visit: a-fib w/RVR, CHF exacerbation Narrative: Date of service 10/11/2020 Reason for consultation: Atrial fibrillation History patient is a 80-year-old female with history of paroxysmal atrial fibrillation. She is scheduled for cardiac ablation by Dr. Alexandre at [facility] on October 30. Patient is states that she has been feeling poorly for the past 4 or 5 weeks. She has been in atrial fibrillation more than not as of recent. She feels palpitations. She has been coughing for the past 2-3 weeks. She denies any chest pain. No syncope, presyncope, paroxysmal nocturnal dyspnea. She came to hospital because worsening shortness of breath over the past for 5 nights above baseline. She also had some orthopnea symptoms. No swelling. She denies any fevers or chills. She was setting 70% on room air. She regard 15 L non-rebreather mask to improve her saturations. Heart rate has remained mildly elevated between 101 130 beats per minute. Chest x-ray is concerning for pneumonia versus edema. BNP is elevated. She has been started on diuretics but is still short of breath. Review of Systems Review of Systems: All systems reviewed & are unremarkable except as noted in HPI and below Constitutional: Constitutional: Denies fatigue and Denies weakness Eyes: Eyes: Denies blurry vision ENT: Reports Normal hearing present Cardiovascular: Cardiovascular: Denies chest pain Respiratory: Respiratory: Reports cough and Reports dyspnea Gastrointestinal: Gastrointestinal: Denies abdominal pain Genitourinary: Genitourinary: Denies hematuria and Denies flank pain Musculoskeletal: Musculoskeletal: Denies neck pain Integumentary/Breasts: Skin/Breast: Denies dry skin Neurologic: Denies headache(s) Psychiatric: Psychiatric: Denies anxiety and Denies confusion Endocrine: Endocrine: Denies fatigue and Denies flushing Hematologic/Lymphatic: Hematologic/Lymphatic: Denies easy bleeding Allergic/Immunologic: Allergic/Immunologic: Denies GI upset with certain foods PMFSH Past Medical History Medical History CAD (coronary artery disease) [facility] 09/08/20 with 50% proximal and mid LAD, LCX 40-50% stenosis, nondominant small caliber
--- NOTE | 2020-10-11 16:00 | PC.NURSE ---
Spoke with Dr. Childress regarding home dose of Xeralto and Dr. Garces wanting to hold medication d/t increase INR of 5.9. Dr. Childress states Xeralto doesn't corollate with INR and that patient needs the Xeralto d/t her Afib. Xeralto given per Dr. Childress's orders.
[2020-10-11] MEDS: RIVAROXABAN 15 MG TABLET PO (16:17)
[2020-10-11] MEDS: AMIODARONE 360 MG/D5W 200 ML 360 MG/200 ML BAG 16.67 MG IV CONT (16:18)
[2020-10-11] MEDS: PHARMACIST COMMUNICATION ORDER 1 EACH XX (16:23)
[2020-10-11] MEDS: CHOLECALCIFEROL 1,000 UNITS TABLET 5000 UNITS PO (20:29)
[2020-10-11] MEDS: ZOLPIDEM TARTRATE (*CRX) 5 MG TABLET PO (23:29)
[2020-10-12] VITALS (17 sets, daily range): BP systolic 102–121; BP diastolic 71–97; PULSE 88–114; RESP 16–26; TEMP 36.1–37; O2SAT 94–100
[2020-10-12] MEDS: AMIODARONE 360 MG/D5W 200 ML 360 MG/200 ML BAG 16.67 MG IV CONT ×2 (03:34→16:08)
[2020-10-12 05:59] LABS: Basophils Absolute Auto 0.1 K/mm3 (0.0-0.1); Basophils Percent Auto 1.4 % (0.2-1.2); Eosinophils Absolute Auto 0.2 K/mm3 (0-0.3); Eosinophils Percent Auto 2.8 % (0-4.4); Hematocrit 47.2 % (37.0-47.0); Hemoglobin 15.3 g/dL (12.0-15.0); Immature Granulocyte Absolute 0.01 K/mm3 (0.00-0.031); Immature Granulocyte Percent A 0.2 % (0-0.5); Lymphocytes Absolute Auto 1.98 K/mm3 (0.9-3.2); Lymphocytes Percent Auto 31.3 % (18.3-44.2); Mean Corpuscular HGB Conc 32.4 g/dl (32-36); Mean Corpuscular Hemoglobin 29.2 pg (26-34); Mean Corpuscular Volume 90.1 fl (80-100); Mean Platelet Volume 10.7 fl (7.4-10.4); Monocytes Absolute Auto 0.9 K/mm3 (0.1-0.6); Monocytes Percent Auto 14.4 % (2.6-8.5); Neutrophils Absolute Auto 3.2 K/mm3 (1.3-6.7); Neutrophils Percent Auto 49.9 % (45.5-73.1); Platelet Count Result 194 k/mm3 (150-375); Red Blood Count 5.24 M/mm3 (4.2-5.4); Red Cell Distribution Width 16.5 % (11.5-14.5); White Blood Count 6.3 K/mm3 (4.5-10.0)
[2020-10-12] MEDS: TOLNAFTATE 1% POWDER 45 GM BTL 1 APPLIC TOPICAL ×2 (08:15→20:18)
[2020-10-12] MEDS: PANTOPRAZOLE 40 MG TABLET PO (08:16)
[2020-10-12] MEDS: METOPROLOL SUCCINATE EXT REL 25 MG TABCR PO (08:16)
[2020-10-12] MEDS: EZETIMIBE 10 MG TABLET PO (08:17)
[2020-10-12] MEDS: CALCIUM CARBONATE (OSCAL) 500 MG TABLET 1000 MG PO ×2 (08:17→16:09)
[2020-10-12] MEDS: CHOLECALCIFEROL 1,000 UNITS TABLET 5000 UNITS PO ×2 (08:17→20:18)
[2020-10-12] MEDS: FUROSEMIDE INJ 40 MG/4 ML VIAL IV PUSH ×2 (08:17→20:18)
[2020-10-12 09:01] LABS: Prothrombin Time 58.5 Seconds (11.1-14.7)
[2020-10-12 09:19] LABS: INR 6.7
[2020-10-12 10:28] LABS: Alanine Aminotransferase 41 U/L (4-35); Albumin Level 3.4 g/dL (3.5-5.1); Alkaline Phosphatase 69 U/L (38-126); Anion Gap 12 mmol/L (8-16); Aspartate Amino Transferase 44 U/L (14-36); Bilirubin,Total 1.1 mg/dL (0.2-1.3); Blood Urea Nitrogen 30 mg/dL (7-17); Calcium 9.2 mg/dL (8.4-10.2); Carbon Dioxide 24 mmol/L (22-30); Chloride 98 mmol/L (98-107); Estimated CRCL calculation 26 ml/min; Estimated Glomerular Filt Rate 27; Glucose 100 mg/dL (65-105); Lactate Dehydrogenase 754 U/L (313-618); Magnesium 2.1 mg/dL (1.6-2.3); Potassium 4.8 mmol/L (3.4-5.0); Sodium 134 mmol/L (137-145)
[2020-10-12] MEDS: ONDANSETRON INJ 4 MG/2 ML VIAL IV PUSH ×2 (10:55→23:59)
--- NOTE | 2020-10-12 10:57 | PM.PNCARD ---
Progress Note: A&P Additional Plan 80-year-old white female with: Coronary artery disease with recent angiogram demonstrating no significant coronary stenosis but significant LV systolic dysfunction. This along with her atrial fibrillation is resulting in congestive heart failure. Electrophysiology outside solar sales consultant at [facility] has her scheduled for ablation attempt on October 30. She presents here with shortness of breath my partner has placed her on IV amiodarone yesterday evening to try to provide better heart rate control and has reduced the dose of her metoprolol. She is also receiving furosemide intravenously. There is modest clinical improvement since then. As of today. She will be continued on the same regimen for now. I will probably transition her back to oral amiodarone tomorrow probably with a larger dose. I also prepared the patient for the likely but unpleasant reality that her ablation procedure will have to be delayed as cath labs in the [facility] area are cancelling non emergent procedures. I would be surprised if the ablation procedure scheduled for October 30 actually takes place on that date. Nolberto Claros MD [facility] Subjective Date/time seen: Date of service: 10/12/20 10:57 Interval history: Follow-up visit in this 80-year-old female with: Persistent atrial fibrillation and left ventricular systolic dysfunction presenting with shortness of breath and left-sided CHF. Patient is being treated with IV loop diuretics. Dr. Childress has place the patient on intravenous amiodarone for the short term to try to provide better heart rate control and has reduced the dose of her metoprolol. Patient feels slightly better today but upon my arrival to see her still has conversational dyspnea. Short of breath with minimal activity. Chest x-ray today does show some improvement. Exam Const: General: uncomfortable Other: Elderly white female with conversational shortness of breath HENMT: Mouth: Yes moist mucous membranes Eyes: Sclera: sclerae normal Pupils: Equal, round and reactive pupils present Neck: Neck: supple and no JVD Other: No carotid bruits Resp: Other: Scant basilar crackles are still audible. No wheezing. Cardio: Rhythm: abnormal rhythm GI: GI Palp: Yes Soft to palpation Auscultation: normal bowel sounds Skin: General skin exam: normal color Neuro: Cognition (Neuro): normal cognition Objective Data Vital Signs Vital Signs: Vital Signs - 24 hr 10/11/20 12:00 10/11/20 12:03 10/11/20 14:00 Temperature 36.1 C L Pulse Rate 117 H 94 100 Respiratory Rate 20 Blood Pressure 90/71 L Pulse Oximetry 97 10/11/20 16:00 10/11/20 16:18 10/11/20 17:58 Temperature 36.5 C Pulse Rate 117 H 112 H 111 H Respiratory Rate 20 Blood Pressure 102/80 102/80 Pulse Oximetry 97 10/11/20 18:00 10/11/20 19:54 10/11/20 20:00 Temperature 35.9 C L Pulse Rate 105 H 93 105 H Respiratory Rate 22 H 22 H Blood Pressure 99/79 L Pulse Oximetry 100 100 10/11/20 22:00 10/11/20 22:26 10/11/20 23:50 Temperature 36.7 C Pulse Rate 98 96 Respiratory Rate 18 Blood Pressure 126/108 H Pulse Oximetry 97 99 10/12/20 00:00 10/12/20 01:54 10/12/20 03:34 Temperature Pulse Rate 92 95 92 Respiratory Rate 18 Blood Pressure 102/82 Pulse Oximetry 99 10/12/20 03:49 10/12/20 04:00 10/12/20 05:32 Temperature 36.8 C Pulse Rate 92 88 90 Respiratory Rate 16 16 Blood Pressure 102/82 Pulse Oximetry 96 96 10/12/20 08:00 10/12/20 08:16 10/12/20 10:00 Temperature 36.1 C L Pulse Rate 88 101 H 106 H Respiratory Rate 24 H Blood Pressure 121/97 H Pulse Oximetry 100 Intake/Output Intake/Output: Intake & Output 10/09/20 10/10/20 10/11/20 10/12/20 23:59 23:59 23:59 23:59 Intake Total 857 373 Output Total 950 Balance -93 373 Meds/Results Medications: Active Medications Generic Name Dose Route Start Last Admin Trade Name Freq
[2020-10-12 11:43] LABS: Free T4 Free Thyroxine Reflex 1.89 ng/dL (0.78-2.19)
[2020-10-12 12:30] LABS: Total Triiodothyronine (T3) 0.49 NG/ML (0.97-1.69)
--- NOTE | 2020-10-12 13:20 | PM.IMPN ---
Progress Note: A&P Assessment and Plan (1) Acute respiratory failure with hypoxia: Code(s): J96.01 - Acute respiratory failure with hypoxia Status: Acute Assessment and Plan: Patient with nocturnal symptoms 2nd to CHF exacerbation but cannot exclude poorly treated sleep apnea. Chest x-ray showing improvement and she is down to 2L. Still with symptoms at night and feeling SOB but fluid status clinically better. Wean o2 as tolerated (2) Hyperkalemia: Code(s): E87.5 - Hyperkalemia Status: Acute Assessment and Plan: Potassium 5.4 on admission related to her renal failure and that she is on potassium supplements. Repeat potassium 4,8 today. Continue to hold supplements and Cozaar. (3) CHF exacerbation: Qualifiers: Heart failure type: unspecified Qualified Code(s): I50.9 - Heart failure, unspecified Code(s): I50.9 - Heart failure, unspecified Status: Acute Assessment and Plan: Echo showing EF<15% with moderate to severe MR and TR and moderate pulmonary HTN. Her exacerbation could be related to poorly controlled atrial fibrillation. Clinically improved. Continue Lasix IV for today. Cr up slightly at 1.8. Monitor renal function closely. Continue metoprolol. Cozaar on hold for now. Consider Entresto and Spironolactone if possible. Appreciate Cardiology input. She will need LifeVest as well. (4) Atrial fibrillation with RVR: Code(s): I48.91 - Unspecified atrial fibrillation Status: Acute Assessment and Plan: Heart rate better controlled since admission. TSH 5.1. Metoprolol resumed at lower dose and Amio started IV. Xarelto resumed yesterday but will hold and will remain on hold until her INR improves. Will not reverse INR at this time but continue to monitor daily. (5) Coagulopathy: Code(s): D68.9 - Coagulation defect, unspecified Status: Acute Assessment and Plan: As above. LFTs slightly elevated possibly from hepatic congestion. No evidence of sepsis. Etiology unclear. Monitor INR daily. Xarelto resumed but INR 6.7 now so will hold. Hgb stable. Watch hemoglobin. (6) ESTEBAN (obstructive sleep apnea): Code(s): G47.33 - Obstructive sleep apnea (adult) (pediatric) Status: Acute Assessment and Plan: As above. Will continue CPAP at Auto settings. Discuss with Resp to see if we can have her current machine adjusted. Consider pulmonary consult for adjustment if unable to have this done through respiatory. (7) Hypertension: Code(s): I10 - Essential (primary) hypertension Status: Acute Assessment and Plan: Blood pressure noted on 10/12 and remains well controlled. Unclear if the blood pressure obtain by EMS was accurate or if patient was in extreme distress. Continue to follow closely. (8) Chronic kidney disease: Code(s): N18.9 - Chronic kidney disease, unspecified Status: Acute Assessment and Plan: Baseline creatinine is 1.4-1.5. Her Cr is 1.8 today which is above these values this admission. Will monitor closely on IV diuretics. Subjective Date/time seen: 10/12/20 13:20 Interval history: Date of service: 10/12 80yo female with CAD, HTN and CHF here for SOB felt related to CHF exacerbation. Feels sleepy this morning. She did wear the BiPAP last night and slept well. She did wake up with orthopneic symptoms last night. Denies CP. Did have dry heaves this morning. SHe has not eaten breakfast and does not want lunch. Still feels SOB Exam Narrative: Exam Narrative: AF 97.2 109/71 100 24 98% 2L Gen - NARD lying semi-recumbent in bed Neck - JVP not elevated. Chest - bibasilar insiratory crackles CV - irregularly irregular. S1-S2. Tele showing BBB, AFib with controlled rate Abd - asoft, NT/ND, +BS Ext - no pedal edema. Psych - normal mood and affect. Skin - multiple small dried eschars bilateral LE and abdomen
[2020-10-13] VITALS (16 sets, daily range): BP systolic 93–112; BP diastolic 63–84; PULSE 86–138; RESP 18–35; TEMP 36.2–36.6; O2SAT 91–100
[2020-10-13] MEDS: BUMETANIDE INJ 1 MG/4 ML VIAL 2 MG IV PUSH (00:48)
--- NOTE | 2020-10-13 00:52 | ECG_ITS ---
Measurements Intervals [place] Rate: 132 P: NM: 0 QRS: -85 QRSD: 141 T: 76 QT: 344 QTc: 510 Interpretive Statements ATRIAL FIBRILLATION WITH RAPID VENTRICULAR RESPONSE LEFT AXIS DEVIATION LEFT BUNDLE BRANCH BLOCK ABNORMAL ECG Electronically Signed On 10-16-2020 12:18:20 [employer] by Efraín Almendarez D.O.
[2020-10-13] MEDS: AMIODARONE 360 MG/D5W 200 ML 360 MG/200 ML BAG 16.67 MG IV CONT (03:33)
[2020-10-13 05:46] LABS: Alanine Aminotransferase 39 U/L (4-35); Albumin Level 3.2 g/dL (3.5-5.1); Alkaline Phosphatase 84 U/L (38-126); Anion Gap 10 mmol/L (8-16); Aspartate Amino Transferase 44 U/L (14-36); Bilirubin,Total 0.9 mg/dL (0.2-1.3); Blood Urea Nitrogen 31 mg/dL (7-17); Calcium 8.6 mg/dL (8.4-10.2); Carbon Dioxide 26 mmol/L (22-30); Chloride 95 mmol/L (98-107); Estimated CRCL calculation 27 ml/min; Estimated Glomerular Filt Rate 27; Glucose 133 mg/dL (65-105); Potassium 3.3 mmol/L (3.4-5.0); Sodium 131 mmol/L (137-145)
[2020-10-13] MEDS: FUROSEMIDE INJ 40 MG/4 ML VIAL IV PUSH ×2 (09:00→21:20)
[2020-10-13] MEDS: TOLNAFTATE 1% POWDER 45 GM BTL 1 APPLIC TOPICAL (09:00)
[2020-10-13] MEDS: CALCIUM CARBONATE (OSCAL) 500 MG TABLET 1000 MG PO ×2 (09:24→16:41)
[2020-10-13] MEDS: EZETIMIBE 10 MG TABLET PO (09:25)
[2020-10-13] MEDS: METOPROLOL SUCCINATE EXT REL 25 MG TABCR PO (09:25)
[2020-10-13] MEDS: PANTOPRAZOLE 40 MG TABLET PO (09:25)
[2020-10-13] MEDS: CHOLECALCIFEROL 1,000 UNITS TABLET 5000 UNITS PO ×2 (09:25→21:19)
[2020-10-13 09:47] LABS: Hematocrit 37.3 % (37.0-47.0); Hemoglobin 12.5 g/dL (12.0-15.0); Mean Corpuscular HGB Conc 33.5 g/dl (32-36); Mean Corpuscular Hemoglobin 29.1 pg (26-34); Mean Corpuscular Volume 86.9 fl (80-100); Mean Platelet Volume 9.7 fl (7.4-10.4); Platelet Count Result 180 k/mm3 (150-375); Red Blood Count 4.29 M/mm3 (4.2-5.4); Red Cell Distribution Width 15.9 % (11.5-14.5); White Blood Count 9.8 K/mm3 (4.5-10.0)
[2020-10-13 09:50] LABS: INR 2.2; Prothrombin Time 24.6 Seconds (11.1-14.7)
--- NOTE | 2020-10-13 09:58 | PM.PNCARD ---
Progress Note: A&P Additional Plan 80-year-old woman with systolic heart failure and chronic persistent atrial fibrillation. She still is decompensated with findings of left-sided heart failure and had a significant episode of PND last night. Today I am going to transition her back to oral amiodarone. This was given intravenously for better heart rate control upon admission. I also would like to start Entresto as her ejection fraction is extremely low and she was previously taking losartan. Continue modest dose of oral metoprolol as well. Hopefully her hemodynamic status can be brought into the state of better compensation hopefully her AF ablation which is currently scheduled for October [address] The pandemic may result in this procedure being delayed. Nolberto Claros MD [facility] Subjective Date/time seen: Date of service: 10/13/20 09:58 Interval history: Follow-up visit in this 80-year-old white female with: Congestive heart failure with severe left ventricular systolic dysfunction and persistent atrial fibrillation. Recent catheterization did not demonstrate any significant coronary lesions. Patient is awaiting attempt at ablation of her atrial fibrillation which is currently scheduled for October 30. Hospitalized couple of days ago with decompensated heart failure. Feels reasonably well this morning had an episode of significant PND last night which was treated with intravenous Bumex. Exam Const: General: comfortable and no acute distress Other: Relatively comfortable still some conversational dyspnea. HENMT: Mouth: Yes moist mucous membranes Eyes: Sclera: sclerae normal Pupils: Equal, round and reactive pupils present Neck: Neck: supple and no JVD Thyroid: thyroid normal Resp: Other: Patient with diminished breath sounds at the bases and still some bibasilar crackles. Cardio: Rhythm: abnormal rhythm irregularly irregular GI: GI Palp: Yes Soft to palpation Auscultation: normal bowel sounds Neuro: Cognition (Neuro): normal cognition Extrem: Other: No peripheral edema Objective Data Vital Signs Vital Signs: Vital Signs - 24 hr 10/12/20 10:00 10/12/20 11:58 10/12/20 12:00 Temperature 36.2 C L Pulse Rate 106 H 100 Respiratory Rate 24 H Blood Pressure 109/71 Pulse Oximetry 100 98 10/12/20 14:00 10/12/20 16:00 10/12/20 16:13 Temperature 36.3 C L Pulse Rate 93 97 Respiratory Rate 26 H Blood Pressure 104/82 Pulse Oximetry 99 100 10/12/20 18:00 10/12/20 20:00 10/12/20 20:23 Temperature 37.0 C Pulse Rate 114 H 104 H 114 H Respiratory Rate 18 Blood Pressure 114/84 Pulse Oximetry 94 10/13/20 00:00 10/13/20 02:00 10/13/20 04:00 Temperature 36.2 C L 36.6 C Pulse Rate 138 H 108 H 112 H Respiratory Rate 35 H 21 H Blood Pressure 103/84 93/63 L Pulse Oximetry 91 96 10/13/20 06:00 10/13/20 08:00 10/13/20 09:25 Temperature 36.4 C L Pulse Rate 109 H 86 97 Respiratory Rate 20 Blood Pressure 102/68 Pulse Oximetry 92 Intake/Output Intake/Output: Intake & Output 10/10/20 10/11/20 10/12/20 10/13/20 23:59 23:59 23:59 23:59 Intake Total 857 1447 706 Output Total 950 1500 1850 Balance -93 -53 -1144 Meds/Results Medications: Active Medications Generic Name Dose Route Start Last Admin Trade Name Ghanshyamq PRN Reason Stop Dose Admin Amiodarone HCl 400 mg 10/11/20 10:15 10/11/20 12:03 Amiodarone Hcl 200 Mg Tablet PO 400 mg DAILY SHELLIE Administration Amiodarone HCl 400 mg 10/13/20 10:00 Amiodarone Hcl 200 Mg Tablet PO DAILY@0800 [facility] Calcium Carbonate 1,000 mg 10/11/20 09:00 10/13/20 09:24 Calcium Carbonate (Oscal) 500 Mg Tablet PO 11/10/20 09:01 1,000 mg BID SHELLIE Administration Ezetimibe 10 mg 10/11/20 09:00 10/13/20 09:25 Ezetimibe 10 Mg Tablet PO 10 mg DAILY SHELLIE Administration Furosemide 40 mg 10/11/20 21:00 10/12/20 20:18 Furosemide Inj 40 Mg/4 Ml Vial IV PUSH
[2020-10-13] MEDS: AMIODARONE HCL 200 MG TABLET 400 MG PO (12:02)
--- NOTE | 2020-10-13 14:39 | PM.IMPN ---
Progress Note: A&P Assessment and Plan (1) Acute respiratory failure with hypoxia: Code(s): J96.01 - Acute respiratory failure with hypoxia Status: Acute Assessment and Plan: Patient with nocturnal symptoms 2nd to CHF exacerbation but cannot exclude poorly treated sleep apnea. Chest x-ray showing improvement yesterday but up to 4L now for unclear reasons. Still with symptoms at night and feeling SOB but fluid status clinically better. Wean o2 as tolerated. Continue Lasix. Check CXR in the morning. (2) Hyperkalemia: Code(s): E87.5 - Hyperkalemia Status: Acute Assessment and Plan: Potassium 5.4 on admission related to her renal failure and that she is on potassium supplements. Repeat potassium 3.3 today. Replace and follow. (3) CHF exacerbation: Qualifiers: Heart failure type: unspecified Qualified Code(s): I50.9 - Heart failure, unspecified Code(s): I50.9 - Heart failure, unspecified Status: Acute Assessment and Plan: Echo showing EF<15% with moderate to severe MR and TR and moderate pulmonary HTN. Her exacerbation could be related to poorly controlled atrial fibrillation +/- ESTEBAN. Clinically improved. Continue Lasix IV for today. Cr up to 1.8 but stable. Monitor renal function closely. Continue metoprolol. Cozaar changed to Entresto. Appreciate Cardiology input. She will need LifeVest as well. (4) Atrial fibrillation with RVR: Code(s): I48.91 - Unspecified atrial fibrillation Status: Acute Assessment and Plan: Heart rate still elevated at times. TSH 5.1. Metoprolol resumed at lower dose. Amio started IV and changed to oral today. Xarelto to be resumed today. (5) Coagulopathy: Code(s): D68.9 - Coagulation defect, unspecified Status: Acute Assessment and Plan: As above. LFTs slightly elevated but no change; suspect from mild hepatic congestion. No evidence of sepsis. Etiology unclear. INR better today. Hgb stable. Monitor INR daily. Resume Xarelto today. (6) ESTEBAN (obstructive sleep apnea): Code(s): G47.33 - Obstructive sleep apnea (adult) (pediatric) Status: Acute Assessment and Plan: As above. Will continue CPAP at Auto settings. Discussed with Resp; plan to have patient home with auto-titrate PAP therapy until seen for official sleep study. (7) Hypertension: Code(s): I10 - Essential (primary) hypertension Status: Acute Assessment and Plan: Blood pressure noted on 10/13 and remains well controlled. Unclear if the blood pressure obtain by EMS was accurate or if patient was in extreme distress. Continue to follow closely. (8) Chronic kidney disease: Code(s): N18.9 - Chronic kidney disease, unspecified Status: Acute Assessment and Plan: Baseline creatinine is 1.4-1.5. Her Cr is 1.8 again today which is above these values this admission. Will monitor closely as medications are adjusted Subjective Date/time seen: 10/13/20 14:39 Interval history: Date of service: 10/13 80yo female with CAD, HTN and CHF here for SOB related to CHF exacerbation. Slept through the night last night (but cards note state patient still with PND). Feeling better overall. No CP. No abd pain after eating. no n/v. Eating better. Does not wear oxygen at home. Exam Narrative: Exam Narrative: AF 97.5 102/68 96 20 92% 4L Gen - NARD lying semi-recumbent in bed Chest - bibasilar inspiratory crackles, nml RR CV - irregularly irregular. S1-S2. Tele showing BBB, AFib with RVR overnight Abd - soft, NT/ND, +BS Ext - no pedal edema. Psych - normal mood and affect. Skin - multiple small dried eschars bilateral LE and abdomen consistent with scratching Objective Data Vital Signs Vital Signs: Vital Signs - 24 hr 10/12/20 16:00 10/12/20 16:13 10/12/20 18:00 Temperature 97.4 F L Pulse Rate 97 114 H Respiratory Rate
[2020-10-13] MEDS: POTASSIUM CHLORIDE 20 MEQ PACKET (FOR LIQUID) PO (16:46)
[2020-10-13] MEDS: RIVAROXABAN 15 MG TABLET PO (16:47)
[2020-10-13] MEDS: SACUBITRIL/VALSARTAN 24-26 MG TABLET 1 TAB PO (21:19)
[2020-10-14] VITALS (19 sets, daily range): BP systolic 88–104; BP diastolic 52–66; PULSE 87–115; RESP 16–20; TEMP 36.6–36.8; O2SAT 90–96
[2020-10-14] MEDS: TOLNAFTATE 1% POWDER 45 GM BTL 1 APPLIC TOPICAL ×3 (00:13→22:21)
[2020-10-14 05:01] LABS: INR 1.5; Prothrombin Time 18.5 Seconds (11.1-14.7)
[2020-10-14 05:43] LABS: Albumin Level 2.8 g/dL (3.5-5.1); Anion Gap 8 mmol/L (8-16); Blood Urea Nitrogen 23 mg/dL (7-17); Calcium 8.1 mg/dL (8.4-10.2); Carbon Dioxide 34 mmol/L (22-30); Chloride 91 mmol/L (98-107); Estimated CRCL calculation 36 ml/min; Estimated Glomerular Filt Rate 40; Glucose 90 mg/dL (65-105); Magnesium 1.5 mg/dL (1.6-2.3); Phosphorus 2.6 mg/dL (2.5-4.5); Potassium 2.5 mmol/L (3.4-5.0); Sodium 133 mmol/L (137-145)
[2020-10-14] MEDS: MAGNESIUM SULF 2 GM/WATER 50ML 2 GM/50 ML BAG IVPB (08:30)
[2020-10-14] MEDS: SACUBITRIL/VALSARTAN 24-26 MG TABLET 1 TAB PO (08:33)
[2020-10-14] MEDS: PANTOPRAZOLE 40 MG TABLET PO (08:33)
[2020-10-14] MEDS: METOPROLOL SUCCINATE EXT REL 25 MG TABCR PO (08:34)
[2020-10-14] MEDS: CALCIUM CARBONATE (OSCAL) 500 MG TABLET 1000 MG PO ×2 (08:35→16:19)
[2020-10-14] MEDS: AMIODARONE HCL 200 MG TABLET 400 MG PO (08:35)
[2020-10-14] MEDS: EZETIMIBE 10 MG TABLET PO (08:35)
[2020-10-14] MEDS: CHOLECALCIFEROL 1,000 UNITS TABLET 5000 UNITS PO ×2 (08:35→22:14)
[2020-10-14] MEDS: FUROSEMIDE 40 MG TABLET PO (08:41)
--- NOTE | 2020-10-14 10:30 | PM.PNCARD ---
Progress Note: A&P Assessment and Plan (1) CHF (congestive heart failure): Code(s): I50.9 - Heart failure, unspecified Status: Acute Assessment and Plan: Cardiomyopathy with EF of 15%. Possibly related tachycardic induced versus left bundle-branch block etiology. Metoprolol succinate 25 mg p.o. daily and up titrate as able. Started on Entresto on October 13. IV diuretic changed to p.o. Lasix today. Ambulate. Hopefully home in the next couple of days. (2) Atrial fibrillation with RVR: Code(s): I48.91 - Unspecified atrial fibrillation Status: Acute Assessment and Plan: AFib RVR on admission, improved, heart rate not ideal but reasonable. IV amiodarone change to p.o.. Resumed Xarelto but at a lower dose of 15 mg daily given her renal failure. This may need to be increased back up to 20 mg daily depending on how her kidney function improved. Supposed to get an AFib ablation in October, permitting. DC daiily INRs since pt on Xarelto. (3) Hypokalemia: Code(s): E87.6 - Hypokalemia Status: Acute Assessment and Plan: Potassium 2.5 today and getting an IV infusion. Patient takes 20 mEq daily and we will also resume that. Recheck potassium and magnesium tmr. Has low Magnesium, treated w/ IV. (4) Mitral regurgitation: Code(s): I34.0 - Nonrheumatic mitral (valve) insufficiency Status: Acute Assessment and Plan: Moderately severe mitral and tricuspid regurgitation. I can't hear a murmur today so hopefully that has improved. (5) CAD (coronary artery disease): Code(s): I25.10 - Atherosclerotic heart disease of [place] coronary artery without angina pectoris Status: Acute Assessment and Plan: Moderate disease, stable. (6) Hypertension: Code(s): I10 - Essential (primary) hypertension Status: Acute Assessment and Plan: Controlled Subjective Date/time seen: 10/14/20 10:30 Interval history: Follow-up visit in this 80-year-old white female with: Congestive heart failure with severe left ventricular systolic dysfunction and persistent atrial fibrillation. Recent catheterization did not demonstrate any significant coronary lesions. Patient is awaiting attempt at ablation of her atrial fibrillation which is currently scheduled for October 30. Hospitalized couple of days ago with decompensated heart failure. Echo EF 15% with moderate to severe MR and TR this admission. 10/13/2020: Feels reasonably well this morning had an episode of significant PND last night which was treated with intravenous Bumex. Started on Entresto. IV amiodarone change to p.o.. Date of service 10/14/2020: Feeling better, not short of breath transferring to commode, no PND orthopnea, no edema. Still on 4 L O2. Potassium 2.5, magnesium low also. I's and O's yesterday: 1800 cc's in, 3500 out. Telemetry personally reviewed, AFib rate 100, occasional PVCs. Review of Systems Constitutional: Constitutional: Reports difficulty sleeping (Chronic insomnia) and Reports fatigue Eyes: Eyes: Reports no additional eye complaints ENT: Denies Normal hearing present (Hard of hearing) Cardiovascular: Cardiovascular: Denies chest pain, Denies leg edema, Denies lightheadedness and Denies palpitations Respiratory: Respiratory: Denies chest congestion, Denies cough, Denies dyspnea and Denies dyspnea on exertion Gastrointestinal: Gastrointestinal: Denies abdominal pain Genitourinary: Genitourinary: Denies hematuria Musculoskeletal: Musculoskeletal: Reports no additional musculoskeletal complaints Integumentary/Breasts: Skin/Breast: Denies rash Neurologic: Reports system reviewed and no additional complaints, except as documented Psychiatric: Psych
--- NOTE | 2020-10-14 15:53 | PM.IMPN ---
Progress Note: A&P Assessment and Plan (1) Acute respiratory failure with hypoxia: Code(s): J96.01 - Acute respiratory failure with hypoxia Status: Acute Assessment and Plan: Patient with nocturnal symptoms 2nd to CHF exacerbation but cannot exclude poorly treated sleep apnea. Chest x-ray today reviewed and showing clear lung vela but still on 4L. No symptoms last night but did not sleep well. Wean O2 as tolerated. (2) Hyperkalemia: Code(s): E87.5 - Hyperkalemia Status: Acute Assessment and Plan: Potassium 5.4 on admission related to her renal failure and that she is on potassium supplements. Repeat potassium 2.5 related to the Lasix. Potassium replaced. Repeat potassium level. (3) CHF exacerbation: Qualifiers: Heart failure type: unspecified Qualified Code(s): I50.9 - Heart failure, unspecified Code(s): I50.9 - Heart failure, unspecified Status: Acute Assessment and Plan: Echo showing EF<15% with moderate to severe MR and TR and moderate pulmonary HTN. Her exacerbation could be related to poorly controlled atrial fibrillation +/- ESTEBAN. Clinically improved. CXR clear and exam and symptoms beter. Cumulative negative fluid balance -3.2L. Cr better at 1.3. Monitor renal function closely. Continue metoprolol. Cozaar changed to Entresto. Change back to oral Lasix and advance home dose. BP soft at times - monitor closely. Appreciate Cardiology input. (4) Atrial fibrillation with RVR: Code(s): I48.91 - Unspecified atrial fibrillation Status: Acute Assessment and Plan: Heart rate well controlled. TSH 5.1. Metoprolol resumed at lower dose. Amio started IV and changed to oral yesterday. Xarelto was held but resumed yesterday as well. (5) Coagulopathy: Code(s): D68.9 - Coagulation defect, unspecified Status: Acute Assessment and Plan: INR elevated on admission and climbed to 6.7. LFTs slightly elevated but no change; suspect from mild hepatic congestion. No evidence of sepsis. INR dropped to 2.2 so Xarelto was resumed yesterday. INR better today. Hgb stable. Aware patient is on Xarelto but checking INR due to coagulopathy -- Okay to stop daily INR now. (6) ESTEBAN (obstructive sleep apnea): Code(s): G47.33 - Obstructive sleep apnea (adult) (pediatric) Status: Acute Assessment and Plan: As above. Will continue CPAP at Auto settings. Discussed with Resp; plan to have patient home with auto-titrate PAP therapy until seen for official sleep study. (7) Hypertension: Code(s): I10 - Essential (primary) hypertension Status: Acute Assessment and Plan: Blood pressure noted on 10/14 and remains well controlled. Unclear if the blood pressure obtain by EMS was accurate or if patient was in extreme distress. Continue to follow closely as medications are adjusted. (8) Chronic kidney disease: Code(s): N18.9 - Chronic kidney disease, unspecified Status: Acute Assessment and Plan: Baseline creatinine is 1.4-1.5. Her Cr is better at 1.3 today. Will monitor closely as medications are adjusted Subjective Date/time seen: 10/14/20 15:53 Interval history: Date of service: 10/14 80yo female with CAD, HTN and CHF here for SOB related to CHF exacerbation. Feeling better. Up in room ambulating. Slept poorly last night. No CP. No orthopnea or PND. Exam Narrative: Exam Narrative: AF 98.1 101/64 94 16 92% 4L Gen - NARD lying almost flat in bed Chest - few basilar rhonchi that cleared with deep inspiration, nml RR CV - irregularly irregular. S1-S2. Tele showing AFib with RVR at times Abd - soft, NT/ND, +BS Ext - no pedal edema. Psych - normal mood and affect. Skin - multiple small dried eschars bilateral LE and abdomen consistent with scratching Objective Data Vital Signs Vital Signs: Vital Signs - 24 hr 10/13/20 16:00 1
[2020-10-14] MEDS: RIVAROXABAN 15 MG TABLET PO (16:19)
[2020-10-14 20:56] LABS: Magnesium 1.9 mg/dL (1.6-2.3); Potassium 2.7 mmol/L (3.4-5.0)
[2020-10-14] MEDS: NEOMYCIN/POLYMYXIN/BACITRACIN OINTMENT PACKET 2 PACKET (22:00)
[2020-10-15] VITALS (13 sets, daily range): BP systolic 104–117; BP diastolic 64–83; PULSE 90–115; RESP 18; TEMP 36.1–36.9; O2SAT 94–98
[2020-10-15 06:12] LABS: Anion Gap 5 mmol/L (8-16); Blood Urea Nitrogen 16 mg/dL (7-17); Calcium 8.1 mg/dL (8.4-10.2); Carbon Dioxide 34 mmol/L (22-30); Chloride 90 mmol/L (98-107); Estimated CRCL calculation 43 ml/min; Estimated Glomerular Filt Rate 48; Glucose 103 mg/dL (65-105); Magnesium 1.9 mg/dL (1.6-2.3); Potassium 3.1 mmol/L (3.4-5.0); Sodium 129 mmol/L (137-145)
--- NOTE | 2020-10-15 09:47 | PM.PNCARD ---
Progress Note: A&P Assessment and Plan (1) CHF (congestive heart failure): Code(s): I50.9 - Heart failure, unspecified Status: Acute Assessment and Plan: Cardiomyopathy with EF of 15%. Possibly tachycardic induced versus left bundle-branch block etiology. Metoprolol succinate 25 mg p.o. daily and up titrate as able. Started on Entresto on October 13. IV diuretic changed to p.o. Lasix 10/14. Appears euvolemic an okay for discharge on current medications decrease the amiodarone dose.. Will make sure the patient has a follow-up office visit. (2) Atrial fibrillation with RVR: Code(s): I48.91 - Unspecified atrial fibrillation Status: Acute Assessment and Plan: AFib RVR on admission, improved, heart rate not ideal but reasonable. IV amiodarone changed to p.o.. Heart rate will likely improve over time with the amiodarone on board. Her usual dose of metoprolol is 50 mg qd so I will increase the dose to that; hopefully BP will tolerate it. Resumed Xarelto but at a lower dose of 15 mg daily given her renal failure. This may need to be increased back up to 20 mg daily depending on how her kidney function improves but currently her GFR is less than 50 most per minute. Supposed to get an AFib ablation in October, permitting. (3) Hypokalemia: Code(s): E87.6 - Hypokalemia Status: Acute Assessment and Plan: Potassium 3.1 today but magnesium level is normal. Supplemented with IV potassium again today. Will check BMP in a week. (4) Mitral regurgitation: Code(s): I34.0 - Nonrheumatic mitral (valve) insufficiency Status: Acute Assessment and Plan: Moderately severe mitral and tricuspid regurgitation. Not much of a murmur so hopefully that has improved. (5) CAD (coronary artery disease): Code(s): I25.10 - Atherosclerotic heart disease of [place] coronary artery without angina pectoris Status: Acute Assessment and Plan: Moderate disease, stable. (6) Hypertension: Code(s): I10 - Essential (primary) hypertension Status: Acute Assessment and Plan: Controlled Additional Plan Subjective Date/time seen: 10/15/20 09:47 Interval history: Follow-up visit in this 80-year-old white female with Congestive heart failure with severe left ventricular systolic dysfunction and persistent atrial fibrillation. Recent catheterization did not demonstrate any significant coronary lesions. Patient is awaiting attempt at ablation of her atrial fibrillation which is currently scheduled for October 30. Hospitalized couple of days ago with decompensated heart failure. Echo EF 15% with moderate to severe MR and TR this admission. 10/13/2020: Feels reasonably well this morning had an episode of significant PND last night which was treated with intravenous Bumex. Started on Entresto. IV amiodarone change to p.o.. 10/14/2020: Feeling better, not short of breath transferring to commode, no PND orthopnea, no edema. Still on 4 L O2. Potassium 2.5, magnesium low also. I's and O's yesterday: 1800 cc's in, 3500 out. Telemetry personally reviewed, AFib rate 100, occasional PVCs. Lasix switch to p.o.. Date of service 10/15/2020: Feeling well and eager to go home. Up and about and room, denies any shortness of breath, dizziness. Off oxygen this morning. Again a good diuresis. Soft blood pressure at times. Telemetry shows AFib heart rate 90-105 at rest, up to 120 with minor activity. Review of Systems Constitutional: Constitutional: Reports fatigue (Did not sleep well secondary to insomnia) ENT: Denies nasal congestion Cardiovascular: Cardiovascular: Denies chest pain, Denies leg edema, Denies lightheadedness and Denies palpitations Respir
[2020-10-15] MEDS: TOLNAFTATE 1% POWDER 45 GM BTL 1 APPLIC TOPICAL (10:28)
[2020-10-15] MEDS: SACUBITRIL/VALSARTAN 24-26 MG TABLET 1 TAB PO (10:28)
[2020-10-15] MEDS: PANTOPRAZOLE 40 MG TABLET PO (10:28)
[2020-10-15] MEDS: AMIODARONE HCL 200 MG TABLET 400 MG PO (10:29)
[2020-10-15] MEDS: FUROSEMIDE 40 MG TABLET PO (10:29)
[2020-10-15] MEDS: CALCIUM CARBONATE (OSCAL) 500 MG TABLET 1000 MG PO (10:29)
[2020-10-15] MEDS: POTASSIUM CHLORIDE 20 MEQ TABLET.ER 40 MEQ PO (10:29)
[2020-10-15] MEDS: EZETIMIBE 10 MG TABLET PO (10:29)
[2020-10-15] MEDS: CHOLECALCIFEROL 1,000 UNITS TABLET 5000 UNITS PO (10:29)
[2020-10-15] MEDS: METOPROLOL SUCCINATE EXT REL 50 MG TABCR PO (12:50)
--- NOTE | 2020-10-15 14:49 | PM.DS ---
DS: Admitting Diagnosis Admitting Diagnosis Admitting Diagnosis: a-fib w/RVR, CHF exacerbation DS: Discharge Diagnosis Discharge Diagnosis (1) Acute respiratory failure with hypoxia: Code(s): J96.01 - Acute respiratory failure with hypoxia Status: Acute Assessment and Plan: Patient with nocturnal symptoms 2nd to CHF exacerbation but cannot exclude poorly treated sleep apnea. She required up to 4L but able to be weaned to room air with diuresis. No symptoms last night. (2) Hyperkalemia: Code(s): E87.5 - Hyperkalemia Status: Acute Assessment and Plan: Potassium 5.4 on admission related to her renal failure and that she is on potassium supplements. Not treated but placed on IV Lasix. Potassium became low requiring replacement. (3) CHF exacerbation: Qualifiers: Heart failure type: unspecified Qualified Code(s): I50.9 - Heart failure, unspecified Code(s): I50.9 - Heart failure, unspecified Status: Acute Assessment and Plan: CXR on admisison showing diffuse airspace disease. BNP 50861. Echo showing EF<15% with moderate to severe MR and TR and moderate pulmonary HTN. Her exacerbation could be related to poorly controlled atrial fibrillation +/- ESTEBAN +/- valve disease. Cardiology consulted. Started on Lasix with clinical improvement. CXR clear on 10/14 and exam and symptoms better. Negative fluid balance and Cr better at 1.1 today. We continued metoprolol and changed her Cozaar to Entresto. Changed back to oral Lasix and advance home dose from 20mg to 40mg. (4) Atrial fibrillation with RVR: Code(s): I48.91 - Unspecified atrial fibrillation Status: Acute Assessment and Plan: Heart rate reasonably well controlled. TSH 5.1. Metoprolol resumed. Amio started IV and changed to oral. Xarelto was held initially but then resumed. (5) Coagulopathy: Code(s): D68.9 - Coagulation defect, unspecified Status: Acute Assessment and Plan: INR elevated on admission and climbed to 6.7. LFTs slightly elevated but no change; suspect from mild hepatic congestion. No evidence of sepsis. INR dropped to 2.2 so Xarelto was resumed. (6) ESTEBAN (obstructive sleep apnea): Code(s): G47.33 - Obstructive sleep apnea (adult) (pediatric) Status: Acute Assessment and Plan: Patient is compliant with her CPAP at home and we used Auto titration settings here. She did have a sleep study over a month ago showing severe obstructive symptoms with plans for further titration of her Pap therapy. This has not been completed yet however. Concern that some of her PND symptoms related to ESTEBAN. Discussed with Resp; will see if patient can have home CPAP with auto-titrate PAP therapy until seen for official sleep study. (7) Hypertension: Code(s): I10 - Essential (primary) hypertension Status: Acute Assessment and Plan: Blood pressure reviewed and remained well controlled. (8) Chronic kidney disease: Code(s): N18.9 - Chronic kidney disease, unspecified Status: Acute Assessment and Plan: Baseline creatinine is 1.4-1.5. Her Cr is better at 1.1 today. Will monitor closely as outpatient DS: Summary Hospital Course Reason for hospitalization: 80yo female with CHF, ESTEBAN and CKD here for SOB and found to have CHF exacerbation. Please see H&P for details Hospital Course: As above. Status at Discharge Cognitive/behavioral status at discharge: PATIENT IS STABLE FOR DISCHARGE Time Spent with Patient Time attestation: Total time spent providing and/or coordinating discharge services:34 minutes Time spent: Greater than 30 minutes Exam Narrative: Exam Narrative: AF 97.9 104/81 115 18 96% ra Gen - NARD lying semirecumbent in bed Chest - few basilar rhonchi otherwise clear CV - irregularly irregular. S1-S2. Tele showing AFib with occasional RVR Abd - soft, NT/ND, +BS Ext - no
--- NOTE | 2020-10-15 16:37 | PC.NURSE ---
patient left facility via wheelchair, she has her research recruiter and hearing aides, stated she had everything. Last minute changes to discharge orders were printed and given to her, verbalized understanding to make contact with CPAP co.
== END 2020-10-15 16:25 | disposition home or self-care (01) | DRG 291 ==
LOC: ANHED 03:23 → ANHIMU 04:32
PROVIDERS: Internal Medicine Cardiovascular Disease; Admitting Provider Family Medicine; Emergency Provider Emergency Medicine; PCP Family Medicine; Visit Provider Internal Medicine
DX: I13.0 Hypertensive heart and chronic kidney disease with heart failure and stage 1 through stage 4 chronic kidney disease, or unspecified chronic kidney disease (principal); J96.01 Acute respiratory failure with hypoxia; I48.19 Other persistent atrial fibrillation; D68.9 Coagulation defect, unspecified; I50.9 Heart failure, unspecified; I42.9 Cardiomyopathy, unspecified; I08.1 Rheumatic disorders of both mitral and tricuspid valves; N18.9 Chronic kidney disease, unspecified; G47.33 Obstructive sleep apnea (adult) (pediatric); E03.9 Hypothyroidism, unspecified; E78.5 Hyperlipidemia, unspecified; F41.8 Other specified anxiety disorders; I25.10 Atherosclerotic heart disease of native coronary artery without angina pectoris; E87.5 Hyperkalemia; Z28.21 Immunization not carried out because of patient refusal; Z79.01 Long term (current) use of anticoagulants; Z79.899 Other long term (current) drug therapy; Z87.891 Personal history of nicotine dependence
CPT/HCPCS: 36415; 71045; 80048; 80053; 80069; 82728; 83615; 83735; 83880; 84132; 84439; 84443; 84480; 84484; 85025; 85027; 85610; 85730; 86140; 93005; 93306; 93923; 99285; A9270; C8929; J0282; J1940; J2405; J3475; J3480; Q9957

== ENCOUNTER 2020-10-18 15:33 | Emergency (ER) | payer MEDICARE, SELFPAY ==
[2020-10-18 15:51] VITALS: BP 102/54; PULSE 78; RESP 16; TEMP 36.7; O2SAT 98
--- NOTE | 2020-10-18 16:05 | ED.UPPEXIN ---
HPI - Extremity Injury (Upper) General Chief Complaint: Extremity Injury, Upper Stated Complaint: Infection in arm Source: patient Mode of arrival: ambulatory Limitations: no limitations History of Present Illness HPI narrative: Patient is a 80-year-old female who presents complaining of redness and tenderness to bilateral ACs. Patient reports that she was admitted in the hospital last week and had IVs in bilateral ACs. She reports increased redness, swelling and pus-like drainage started over the past 1 to 2 days. She denies body aches, fever or all other complaints. Related Data Home Medications Medication Instructions Recorded Confirmed calcium citrate 1,000 mg PO BID 09/07/20 10/18/20 cholecalciferol (vitamin D3) 250 mcg PO BID 09/07/20 10/18/20 [Vitamin D3] coenzyme [id number] E 1 cap PO DAILY 09/07/20 10/18/20 ezetimibe 10 mg PO DAILY 09/07/20 10/18/20 hpwpv-zj-3-mvf-woq-sevyfyi-ast 2 cap PO DAILY 09/07/20 10/18/20 [krill oil] magnesium 1,500 mg PO DAILY 09/07/20 10/18/20 oxybutynin chloride 10 mg PO DAILY 09/07/20 10/18/20 potassium chloride [Klor-Con M20] 20 meq PO DAILY 09/07/20 10/18/20 zolpidem 5 mg PO HS PRN 09/07/20 10/18/20 amiodarone 400 mg PO DAILY 10/11/20 10/18/20 apple cider vinegar 1,000 mg PO BID 10/11/20 10/18/20 esomeprazole magnesium 40 mg PO DAILY 10/11/20 10/18/20 apixaban [Eliquis] 5 mg PO DAILY 10/18/20 10/18/20 citalopram 40 mg PO DAILY 10/18/20 10/18/20 Allergies Allergy/AdvReac Type Severity Reaction Status Date / Time povidone-iodine Allergy Mild blisters Verified 10/18/20 15:56 Bjbemsx-Qtk-Cqb Reductase Allergy Mild ACHY Verified 10/18/20 15:56 Inhibitor MUSCLES Review of Systems Review of Systems: Narrative: CONSTITUTIONAL: Denies fever, chills, or sweats. EYES: Denies visual changes, redness, or discharge. ENT: Denies rhinorrhea, congestion, sore throat, or otalgia. CARDIOVASCULAR: Denies chest pain, palpitations, or edema. RESPIRATORY: Denies cough or dyspnea. GASTROINTESTINAL: Denies abdominal pain, nausea, vomiting, or diarrhea. GENITOURINARY: Denies dysuria or hematuria. SKIN: Redness and swelling to bilateral ACs MUSCULOSKELETAL: Denies back pain, joint pain, or myalgia. NEUROLOGIC: Denies headache, numbness, dizziness, or weakness. PSYCHIATRIC: Denies anxiety or depression. [facility] Past Medical History Medical History CAD (coronary artery disease) [facility] 09/08/20 with 50% proximal and mid LAD, LCX 40-50% stenosis, nondominant small caliber RCA with widely patent previously placed stent mid LAD. Again identified is the subtotal occlusion 99% of the 2nd obtuse marginal branch with eldm-eb-vzen collateral filling largely unchanged compared to [facility] 2017. CHF (congestive heart failure) Chronic kidney disease Depression with anxiety Dyslipidemia Hypertension Hypothyroid Mitral regurgitation ESTEBAN (obstructive sleep apnea) Paroxysmal atrial fibrillation Surgical History Surgical History History of cataract surgery History of cholecystectomy History of tonsillectomy Family History Family History Father Acute myocardial infarction Sibling Diabetes mellitus Mother Dementia Social History Social History Social History: Patient smoked 2 packs per day for 10 years quit in 1969. She drinks 1-2 alcoholic drinks per week. No drug use. She is a full code. She nominated her to be the individual who would make medical decisions for her if she is not able. She lives at home with her and a friend of the family. Smoking packs per day: 2 Smoking cigarettes per day: 40.0 Years smoked: 29 Smoking pack-years: 58.00 Smoking status: Former smoker Tobacco type: cigarettes Second hand tobacco smoke exposure: Yes Alcohol intake: curr
== END 2020-10-18 16:30 | disposition home or self-care (01) ==
PROVIDERS: Emergency Provider Nurse Practitioner; PCP Family Medicine
DX: L03.114 Cellulitis of left upper limb (principal); L03.113 Cellulitis of right upper limb; I13.0 Hypertensive heart and chronic kidney disease with heart failure and stage 1 through stage 4 chronic kidney disease, or unspecified chronic kidney disease; N18.9 Chronic kidney disease, unspecified; I25.10 Atherosclerotic heart disease of native coronary artery without angina pectoris; E78.5 Hyperlipidemia, unspecified; E03.9 Hypothyroidism, unspecified; G47.33 Obstructive sleep apnea (adult) (pediatric); I48.0 Paroxysmal atrial fibrillation; F32.9 Major depressive disorder, single episode, unspecified; Z87.891 Personal history of nicotine dependence
CPT/HCPCS: 99213; G0463

== ENCOUNTER 2020-10-22 01:43 | Emergency (ER) | payer MEDICARE, SELFPAY ==
[2020-10-22] VITALS (25 sets, daily range): BP systolic 93–130; BP diastolic 63–92; PULSE 91–136; RESP 20–33; TEMP 36.1; O2SAT 79–100
--- NOTE | ~2020-10-22 | XR_ITS ---
XR chest 1V portable 10/22/2020 02:24 Indication: Shortness of breath Procedure: AP portable chest Comparison: Comparison to multiple prior studies sequentially, with oldest reviewed study dated 12/01. Findings: Cardiomegaly with mild interstitial edema. No significant pleural effusion or pneumothorax. There is atherosclerosis. No acute osseous abnormality. Impression: 1: Cardiomegaly with mild interstitial edema. Reviewed, dictated and finalized at location A. [employer] OFFICER Impression: 1: Cardiomegaly with mild interstitial edema.
[2020-10-22 02:14] LABS: Alveolar/Arterial O2 Gradient 52.2 mmHg; Base Excess ABG 1.4 mEq/l (+/-2.0); Fractional Inspired Oxygen 21 %; HCO3 ABG 23.7 mEq/l (22.0-26.0); Oxygen Content ABG 17.5 %vol (16.0-22.0); Oxygen Saturation ABG 93.5 % (95.0-100.0); Oxyhemoglobin 90.3 % THb (90.0-100.0); PCO2 ABG 30.8 mmHg (35.0-45.0); PO2 ABG 60.6 mmHg (80.0-100.0); PO2 FiO2 Ratio Arterial Blood 2.89 %; Total Hemoglobin 13.8 g/dL (12.0-18.0); pH ABG 7.504 (7.350-7.450)
[2020-10-22 02:15] LABS: Device ROOM AIR; Site Drawn RIGHT BRACHIAL
[2020-10-22 02:22] LABS: Basophils Absolute Auto 0.1 K/mm3 (0.0-0.1); Basophils Percent Auto 0.8 % (0.2-1.2); Eosinophils Percent Auto 0.4 % (0-4.4); Hematocrit 39.8 % (37.0-47.0); Hemoglobin 13.4 g/dL (12.0-15.0); Immature Granulocyte Absolute 0.03 K/mm3 (0.00-0.031); Immature Granulocyte Percent A 0.4 % (0-0.5); Lymphocytes Absolute Auto 0.82 K/mm3 (0.9-3.2); Lymphocytes Percent Auto 10.3 % (18.3-44.2); Mean Corpuscular HGB Conc 33.7 g/dl (32-36); Mean Corpuscular Hemoglobin 28.9 pg (26-34); Mean Platelet Volume 9.6 fl (7.4-10.4); Monocytes Absolute Auto 0.7 K/mm3 (0.1-0.6); Monocytes Percent Auto 8.3 % (2.6-8.5); Neutrophils Absolute Auto 6.4 K/mm3 (1.3-6.7); Neutrophils Percent Auto 79.8 % (45.5-73.1); Platelet Count Result 269 k/mm3 (150-375); Red Blood Count 4.63 M/mm3 (4.2-5.4); Red Cell Distribution Width 16.8 % (11.5-14.5)
--- NOTE | 2020-10-22 02:24 | ED.SOB ---
HPI - SOB/Dyspnea General Chief Complaint: Shortness of Breath/Dyspnea Stated Complaint: SOB Time Seen by Provider: 10/22/20 01:53 History of Present Illness HPI Narrative: 80 yo female with a-fib, CHF, HTn Brought in by EMS to the ED for SOB. She reports that the SOB has been present for awhile, got worse this evening when she was in bed. She has a CPAP, but she was not on it. Per EMS oxygen saturation was normal, but they put her on O2 for comfort. No CP, Cough, fever. Related Data Home Medications Medication Instructions Recorded Confirmed calcium citrate 1,000 mg PO BID 09/07/20 10/18/20 cholecalciferol (vitamin D3) 250 mcg PO BID 09/07/20 10/18/20 [Vitamin D3] coenzyme [id number]-[id number] E 1 cap PO DAILY 09/07/20 10/18/20 ezetimibe 10 mg PO DAILY 09/07/20 10/18/20 wzkub-ey-2-tco-fqm-lywdohr-ast 2 cap PO DAILY 09/07/20 10/18/20 [krill oil] magnesium 1,500 mg PO DAILY 09/07/20 10/18/20 oxybutynin chloride 10 mg PO DAILY 09/07/20 10/18/20 potassium chloride [Klor-Con M20] 20 meq PO DAILY 09/07/20 10/18/20 zolpidem 5 mg PO HS PRN 09/07/20 10/18/20 amiodarone 400 mg PO DAILY 10/11/20 10/18/20 apple cider vinegar 1,000 mg PO BID 10/11/20 10/18/20 esomeprazole magnesium 40 mg PO DAILY 10/11/20 10/18/20 apixaban [Eliquis] 5 mg PO DAILY 10/18/20 10/18/20 citalopram 40 mg PO DAILY 10/18/20 10/18/20 Allergies Allergy/AdvReac Type Severity Reaction Status Date / Time povidone-iodine Allergy Mild blisters Verified 10/22/20 01:54 Eoyeked-Lnm-Nqe Reductase Allergy Mild ACHY Verified 10/22/20 01:54 Inhibitor MUSCLES Review of Systems Review of Systems: All systems reviewed & are unremarkable except as noted in HPI and below Constitutional: Constitutional: Denies chills and Denies fever(s) ENT: Denies sore throat Cardiovascular: Cardiovascular: Denies chest pain and Reports rapid heart rate Respiratory: Respiratory: Reports dyspnea Gastrointestinal: Gastrointestinal: Denies abdominal pain and Reports nausea Genitourinary: Genitourinary: Denies hematuria and Denies dysuria Musculoskeletal: Musculoskeletal: Denies back pain Neurologic: Denies numbness and Denies weakness [facility] Past Medical History Medical History CAD (coronary artery disease) [facility] 09/08/20 with 50% proximal and mid LAD, LCX 40-50% stenosis, nondominant small caliber RCA with widely patent previously placed stent mid LAD. Again identified is the subtotal occlusion 99% of the 2nd obtuse marginal branch with [id number]-[id number] collateral filling largely unchanged compared to [facility] 2017. CHF (congestive heart failure) Chronic kidney disease Depression with anxiety Dyslipidemia Hypertension Hypothyroid Mitral regurgitation ESTEBAN (obstructive sleep apnea) Paroxysmal atrial fibrillation Surgical History Surgical History History of cataract surgery History of cholecystectomy History of tonsillectomy Family History Family History Father Acute myocardial infarction Sibling Diabetes mellitus Mother Dementia Social History Social History Social History: Patient smoked 2 packs per day for 10 years quit in 1969. She drinks 1-2 alcoholic drinks per week. No drug use. She is a full code. She nominated her to be the individual who would make medical decisions for her if she is not able. She lives at home with her and a friend of the family. Smoking packs per day: 2 Smoking cigarettes per day: 40.0 Years smoked: 29 Smoking pack-years: 58.00 Smoking status: Former smoker Tobacco type: cigarettes Second hand tobacco smoke exposure: Yes Alcohol intake: current Drinks per week: 0 Substance use: never Substance use type: does not use Gender identity (if verbalized by the patient): Female Spiritual
[2020-10-22 02:36] LABS: Anion Gap 12 mmol/L (8-16); Blood Urea Nitrogen 17 mg/dL (7-17); Calcium 9.2 mg/dL (8.4-10.2); Carbon Dioxide 25 mmol/L (22-30); Chloride 95 mmol/L (98-107); Estimated Glomerular Filt Rate 36; Glucose 140 mg/dL (65-105); Sodium 132 mmol/L (137-145)
[2020-10-22 02:45] LABS: NT Pro B Type Natriuretic Pept 30500 PG/ML (5-100)
[2020-10-22] MEDS: FUROSEMIDE INJ 40 MG/4 ML VIAL IV PUSH (03:29)
== END 2020-10-22 05:14 | disposition home or self-care (01) ==
PROVIDERS: Emergency Provider Emergency Medicine; PCP Family Medicine
DX: I48.0 Paroxysmal atrial fibrillation (principal); R06.01 Orthopnea; I25.10 Atherosclerotic heart disease of native coronary artery without angina pectoris; I13.0 Hypertensive heart and chronic kidney disease with heart failure and stage 1 through stage 4 chronic kidney disease, or unspecified chronic kidney disease; N18.9 Chronic kidney disease, unspecified; I50.9 Heart failure, unspecified; Z87.891 Personal history of nicotine dependence; E78.5 Hyperlipidemia, unspecified; E03.9 Hypothyroidism, unspecified; G47.33 Obstructive sleep apnea (adult) (pediatric); Z79.01 Long term (current) use of anticoagulants; Z98.49 Cataract extraction status, unspecified eye
CPT/HCPCS: 36415; 36600; 71045; 80048; 82805; 83880; 85025; 96374; 99284; J1940

== ENCOUNTER 2020-10-30 12:02 | Emergency (ER) | payer MEDICARE, SELFPAY ==
[2020-10-30] VITALS (18 sets, daily range): BP systolic 96–118; BP diastolic 72–93; PULSE 91–109; RESP 15–29; TEMP 37.1; O2SAT 87–100
--- NOTE | ~2020-10-30 | XR_ITS ---
XR chest 1V portable 10/30/2020 13:01 Indication: Shortness of breath Procedure: AP portable chest Comparison: Comparison to multiple prior studies sequentially, with oldest reviewed study dated 09/18. Findings: Cardiomegaly with interstitial edema. Small left pleural effusion. No pneumothorax. No acut e osseous abnormality. Impression: 1: Cardiomegaly with interstitial edema. Pneumonia less favored. 2: Small left pleural effusion. Reviewed, dictated and finalized at location A. OR PETROLEUM OPERATOR Impression: 1: Cardiomegaly with interstitial edema. Pneumonia less favored. 2: Small left pleural effusion.
--- NOTE | 2020-10-30 12:06 | ECG_ITS ---
Measurements Intervals [place] Rate: 106 P: [place]: 0 QRS: -55 QRSD: 144 T: 101 QT: 409 QTc: 545 Interpretive Statements ATRIAL FIBRILLATION WITH RAPID VENTRICULAR RESPONSE LEFT AXIS DEVIATION LEFT BUNDLE BRANCH BLOCK BASELINE ARTIFACT- I, III, AVR, AVL ABNORMAL ECG Electronically Signed On 10-30-2020 12:11:11 ACCOUNT OFFICER by Efraín Almendarez D.O.
[2020-10-30 12:50] LABS: Basophils Percent Auto 0.8 % (0.2-1.2); Eosinophils Percent Auto 0.6 % (0-4.4); Hematocrit 42.4 % (37.0-47.0); Hemoglobin 14.3 g/dL (12.0-15.0); Immature Granulocyte Absolute 0.02 K/mm3 (0.00-0.031); Immature Granulocyte Percent A 0.4 % (0-0.5); Lymphocytes Absolute Auto 0.89 K/mm3 (0.9-3.2); Lymphocytes Percent Auto 16.9 % (18.3-44.2); Mean Corpuscular HGB Conc 33.7 g/dl (32-36); Mean Corpuscular Hemoglobin 28.6 pg (26-34); Mean Corpuscular Volume 84.8 fl (80-100); Mean Platelet Volume 9.9 fl (7.4-10.4); Monocytes Absolute Auto 0.6 K/mm3 (0.1-0.6); Monocytes Percent Auto 12.1 % (2.6-8.5); Neutrophils Absolute Auto 3.7 K/mm3 (1.3-6.7); Neutrophils Percent Auto 69.2 % (45.5-73.1); Platelet Count Result 315 k/mm3 (150-375); Red Cell Distribution Width 17.9 % (11.5-14.5); White Blood Count 5.3 K/mm3 (4.5-10.0)
[2020-10-30 12:57] LABS: Alveolar/Arterial O2 Gradient 36.7 mmHg; Base Excess ABG 1.7 mEq/l (+/-2.0); Fractional Inspired Oxygen 21 %; HCO3 ABG 24.5 mEq/l (22.0-26.0); Oxygen Content ABG 18.7 %vol (16.0-22.0); Oxygen Saturation ABG 95.9 % (95.0-100.0); Oxyhemoglobin 93.7 % THb (90.0-100.0); PCO2 ABG 33.2 mmHg (35.0-45.0); PO2 ABG 73.3 mmHg (80.0-100.0); PO2 FiO2 Ratio Arterial Blood 3.49 %; Total Hemoglobin 14.2 g/dL (12.0-18.0); pH ABG 7.486 (7.350-7.450)
[2020-10-30 12:58] LABS: Device ROOM AIR; Modified Allen's Test Pass; Site Drawn RIGHT RADIAL
[2020-10-30 13:03] LABS: Anion Gap 8 mmol/L (8-16); Blood Urea Nitrogen 30 mg/dL (7-17); Calcium 9.3 mg/dL (8.4-10.2); Carbon Dioxide 29 mmol/L (22-30); Chloride 95 mmol/L (98-107); Estimated Glomerular Filt Rate 33; Glucose 117 mg/dL (65-105); Lactic Acid Reflex 2.2 mmol/L (0.7-2.1); Potassium 4.7 mmol/L (3.4-5.0); Sodium 132 mmol/L (137-145)
[2020-10-30 13:17] LABS: NT Pro B Type Natriuretic Pept 34000 PG/ML (5-100); Troponin I < 0.012 ng/mL (0.000-0.034)
--- NOTE | 2020-10-30 14:12 | ED.SOB ---
HPI - SOB/Dyspnea General Chief Complaint: Shortness of Breath/Dyspnea Stated Complaint: SOB Time Seen by Provider: 10/30/20 12:08 Source: patient Mode of arrival: ambulatory Limitations: no limitations History of Present Illness HPI Narrative: 80-year-old female History of atrial fibrillation which is chronic and class III-IV heart failure with a documented ejection fraction of 15% She was discharged from the hospital 2-1/2 weeks ago and has been back to the ER twice since then before today She complains chronically of shortness of breath Seems to be particularly bad when she is attempting to be active or sleep at night She has CPAP but does not use it regularly Her solution has been hits off of canned oxygen of a sort available at [email or web address] which tends to alleviate her symptoms after several sprays She is very emphatic that she is not going home unless she has oxygen there To her point it does not look like an evaluation for home O2 eligibility was ever performed at any of her recent hospital visits and has been put off to some future visit in the office perhaps with pulmonology which has not occurred yet She is not having chest pain or increased swelling she does not have a cough or a fever and she does not feel particularly sick MD elicited complaint: shortness of breath Pertinent past history: congestive heart failure Related Data Home Medications Medication Instructions Recorded Confirmed calcium citrate 1,000 mg PO BID 09/07/20 10/18/20 cholecalciferol (vitamin D3) 250 mcg PO BID 09/07/20 10/18/20 [Vitamin D3] coenzyme B14-[id number] E 1 cap PO DAILY 09/07/20 10/18/20 ezetimibe 10 mg PO DAILY 09/07/20 10/18/20 sezyx-fe-0-rsw-ovw-qkbarhi-ast 2 cap PO DAILY 09/07/20 10/18/20 [krill oil] magnesium 1,500 mg PO DAILY 09/07/20 10/18/20 oxybutynin chloride 10 mg PO DAILY 09/07/20 10/18/20 potassium chloride [Klor-Con M20] 20 meq PO DAILY 09/07/20 10/18/20 zolpidem 5 mg PO HS PRN 09/07/20 10/18/20 amiodarone 400 mg PO DAILY 10/11/20 10/18/20 apple cider vinegar 1,000 mg PO BID 10/11/20 10/18/20 esomeprazole magnesium 40 mg PO DAILY 10/11/20 10/18/20 apixaban [Eliquis] 5 mg PO DAILY 10/18/20 10/18/20 citalopram 40 mg PO DAILY 10/18/20 10/18/20 Allergies Allergy/AdvReac Type Severity Reaction Status Date / Time povidone-iodine Allergy Mild blisters Verified 10/30/20 12:05 Muxxwwt-Keo-Wac Reductase Allergy Mild ACHY Verified 10/30/20 12:05 Inhibitor MUSCLES Review of Systems Review of Systems: All systems reviewed & are unremarkable except as noted in HPI and below Constitutional: Constitutional: Denies chills, Reports fatigue, Denies fever(s), Denies headache(s) and Reports weakness Eyes: Eyes: Reports no additional eye complaints and Denies change in vision ENT: Denies headache(s), Denies epistaxis, Denies nasal congestion and Denies sore throat Cardiovascular: Cardiovascular: Denies chest pain, Denies leg edema, Denies palpitations and Denies dyspnea Respiratory: Respiratory: Denies cough, Reports dyspnea and Denies wheezing Gastrointestinal: Gastrointestinal: Denies abdominal pain, Denies diarrhea, Denies nausea and Denies vomiting Genitourinary: Genitourinary: Denies hematuria, Denies urinary frequency and Denies dysuria Musculoskeletal: Musculoskeletal: Denies deformity, Denies arthralgias, Denies joint swelling, Denies muscle weakness and Denies numbness Integumentary/Breasts: Skin/Breast: Denies rash and Denies wounds Neurologic: Denies headache(s), Denies focal weakness, Denies numbness and Denies weakness Psychiatric: Psychiatric: Reports no additional psychiatric complaints Endocrine: Endocrine: Denies fatigue and Denies palpitations Hematologic/Lymphatic: Hematologic/Lymphatic: Denies easy bleeding and Denies easy bruising Allergic/Immunologic: Allergic/Immunologic: Denies wheezing PMFSH Past Medical History Medical History (Reviewed 10/22/20 @ 03:59 by Brian Garcia
[2020-10-30] MEDS: BUMETANIDE INJ 1 MG/4 ML VIAL 2 MG IV PUSH (14:39)
[2020-10-30 15:46] LABS: Reflex Lactic Acid Yes or No Add Lactic
--- NOTE | 2020-10-30 15:46 | HOMEO2EVAL ---
Home Oxygen Evaluation RC: Home Oxygen (O2) Evaluation Start: 10/30/20 14:53 Freq: ONCE Status: Active Protocol: RPE Activity Type Activity Date Activity User E-Sign Co-Sign Detail Recorded Client Recorded Date Recorded By Document 10/30/20 15:00 JARRELL [email or web address] 10/30/20 15:46 JARRELL Document 10/30/20 15:05 JARRELL [id number] 10/30/20 15:46 JARRELL Document 10/30/20 15:08 JARRELL [id number] 10/30/20 15:46 JARRELL Document 10/30/20 15:10 JARRELL [id number] 10/30/20 15:46 JARRELL Document 10/30/20 15:20 JARRELL [id number] 10/30/20 15:46 JARRELL 10/30/20 10/30/20 10/30/20 15:00 15:05 15:08 Home O2 Evaluation Test Phase Resting Exercise Exercise Oxygen Delivery Room Air Room Air Nasal Cannula Oxygen Flow Rate (L/min) 1 Pulse Oximetry (90-100 %) 96 87 L 87 L Home Oxygen Evaluation Comments Treatment Charges O2 Evaluation 10/30/20 10/30/20 15:10 15:20 Home O2 Evaluation Test Phase Exercise Resting Oxygen Delivery Nasal Cannula Room Air Oxygen Flow Rate (L/min) 2 Pulse Oximetry (90-100 %) 92 95 Home Oxygen Evaluation Comments PT REQUIRES 2 L HOME O2 WITH EXERTION/ ACTIVITY Treatment Charges
--- NOTE | 2020-10-30 16:22 | PCRCNOTE ---
PT WILL BE SET UP WITH [facility]. PHONE # [phone]. THEY WILL BRING EQUIPMENT OUT THIS EVENING. WILL NEED E-SIGNED DR ORDER FOR O2.
[2020-10-30 16:38] LABS: Lactic Acid 2.1 mmol/L (0.7-2.1)
[2020-10-31 22:42] LABS: SARS-CoV-2 RNA PCR Negative
== END 2020-10-30 17:04 | disposition home or self-care (01) ==
PROVIDERS: Family Medicine; Emergency Provider Emergency Medicine; PCP Family Medicine
DX: I13.0 Hypertensive heart and chronic kidney disease with heart failure and stage 1 through stage 4 chronic kidney disease, or unspecified chronic kidney disease (principal); I50.9 Heart failure, unspecified; I48.0 Paroxysmal atrial fibrillation; Z20.828 Contact with and (suspected) exposure to other viral communicable diseases; I25.10 Atherosclerotic heart disease of native coronary artery without angina pectoris; N18.9 Chronic kidney disease, unspecified; Z87.891 Personal history of nicotine dependence; E03.9 Hypothyroidism, unspecified; E78.5 Hyperlipidemia, unspecified; G47.33 Obstructive sleep apnea (adult) (pediatric); Z79.01 Long term (current) use of anticoagulants; Z98.49 Cataract extraction status, unspecified eye; I44.7 Left bundle-branch block, unspecified
CPT/HCPCS: 36415; 36600; 71045; 80048; 82805; 83605; 83880; 84484; 85025; 87635; 93005; 96374; 99284; C9803; U0003

== ENCOUNTER 2021-06-04 10:00 | Outpatient (RCR) | payer MEDICARE, SELFPAY ==
[2021-03-06 15:40] VITALS: BP 112/80; PULSE 60; RESP 16; TEMP 36.3; O2SAT 99
[2021-03-06 16:17] VITALS: PULSE 60
== END 2021-06-04 15:31 | disposition home or self-care (01) ==
LOC: ANHCPREHAB 10:00
PROVIDERS: PCP Family Medicine; Visit Provider Internal Medicine Cardiovascular Disease
DX: I50.89 Other heart failure (principal)
CPT/HCPCS: 93798

== ENCOUNTER 2021-06-21 13:35 | Outpatient (CLI) | payer MEDICARE, SELFPAY ==
--- NOTE | ~2021-06-21 | US_ITS ---
EXAMINATION: US renal BI DATE: 06/21/2021 14:19 INDICATION: Chronic kidney disease stage IIIa. TECHNIQUE: Multiple ultrasound grayscale images of the kidneys were obtained. COMPARISON: CT abdomen and pelvis 07/01/17 FINDINGS: The right kidney measures 9.0 x 5.2 x 4.4 cm. The left kidney measures 9.6 x 4.4 x 4.1 cm. The kidney s demonstrate normal parenchymal echogenicity. There is no hydronephrosis. The bladder is normal. IMPRESSION: 1. Normal kidney sizes. No hydronephrosis. Reviewed, dictated and finalized at location A.
== END 2021-06-21 13:36 | disposition home or self-care (01) ==
LOC: ANHIMG 13:37
PROVIDERS: PCP Family Medicine; Visit Provider Internal Medicine Nephrology
DX: N18.31 Chronic kidney disease, stage 3a (principal)
CPT/HCPCS: 76775

== ENCOUNTER → 2021-08-07 12:02 | Outpatient (CLI) | payer MEDICARE, SELFPAY ==
--- NOTE | ~2021-08-07 | DEXA_ITS ---
Bone Density Report Name: Aster Nevarez Age: 81 Sex: Female Ethnicity: White Date of : 1940 Indication: postmenopausal; screening for osteoporosis; height loss; prior fracture; Referring Provider: SHAHEEN, FAIZAN Jonas Study: Bone densitometry was performed. Exam Date: August 07, 2021 Accession number: [id number] Bone Density: Region BMD T-score Z-score Classification AP Spine (L1-L4) 0.823 -2.0 0.7 Osteopenia Femoral Neck (Left) 0.598 -2.3 0.1 Osteopenia Total Hip (Left) 0.801 -1.2 0.9 Osteopenia Femoral Neck (Right) 0.667 -1.6 0.7 Osteopenia Total Hip (Right) 0.756 -1.5 0.5 Osteopenia Total Hip Mean 0.779 -1.4 0.7 Osteopenia World Health Organization criteria for BMD impression classify patients as: Normal (T-score at or above -1.0), Osteopenia (T-score between -1.0 and -2.5), or Osteoporosis (T-score at or below -2.5). 10-year Fracture Risk(1): Major Osteoporotic Fracture 24% Hip Fracture 7.1% Reported Risk Factors: [place] (), Neck BMD=0.598, BMI=26.5, previous fracture (1) FRAX(R) Version 3.08. Fracture probability calculated for an untreated patient. Fracture probability may be lower if the patient has received treatment. Clinical Information Provided by Patient: Has had a low trauma fracture Has used the following medications: Vitamin D, Calcium Patient maximum height was 66 Menopause Age: 54 Drinks caffeinated beverages Onset of menses at age 13 Number of children 3 Impression: The patient has low bone mass, based on the Left Femoral Neck T-score. The patient has an estimated ten-year risk of hip fracture of 7.1% and an estimated ten-year risk of major fracture of 24%, based on the WHO FRAX algorithm. The patient has risk factors, including: previous fracture. Discussion: BONE DENSITY IS LOW AT ONE OR MORE SKELETAL SITES. THE PATIENT'S BMD AND CLINICAL RISK FACTORS CONTRIBUTE TO THIS PATIENT'S HIGH RISK OF FRACTURE. This patient's lowest T-score is low at one or more skeletal sites. It meets the World Health Organization's (WHO) criteria for ?low bone mass? (T-score between -1.0 and -2.5). The patient's 10-year risk of hip fracture and 10 year risk of a major osteoporotic fracture as calculated by FRAX exceeds the threshold where pharmacological therapy is recommended by the National Osteoporosis Foundation (NOF). However, all treatment decisions require clinical judgment and consideration of individual patient factors, including patient preferences, comorbidities, previous drug use, risk factors not captured in the FRAX model (e.g., frailty, falls, vitamin D deficiency, increased bone turnover, interval significant decline in bone density) and possible under or overestimation of fracture risk by FRAX. The patient should follow a healthful lifestyle (good nutrition wi
== END ==
PROVIDERS: PCP Family Medicine; Visit Provider Family Medicine
DX: Z78.0 Asymptomatic menopausal state (principal); M85.88 Other specified disorders of bone density and structure, other site; M85.851 Other specified disorders of bone density and structure, right thigh; M85.852 Other specified disorders of bone density and structure, left thigh
CPT/HCPCS: 77080

== ENCOUNTER 2022-04-07 14:28 | Emergency (ER) | payer MEDICARE, SELFPAY ==
[2022-04-07 14:38] VITALS: BP 121/88; PULSE 98; RESP 16; TEMP 37.2; O2SAT 98
--- NOTE | 2022-04-07 15:00 | ED.EAR ---
HPI - Ear Problem General Chief complaint: Upper Respiratory Infection Stated complaint: sinus infection Time Seen by Provider: 04/07/22 15:01 Source: patient, RN notes reviewed and old records reviewed Mode of arrival: ambulatory Limitations: no limitations History of Present Illness HPI Narrative: 81-year-old female presents to the [facility] with complaints of a sinus infection and blood coming from her right ear. Patient states her had an upper respiratory infection last week and got over it easily she on the other hand has not. Denies fevers or chest pain. No coughing. Reports stuffy nose and had ear pain, right. Today she noticed blood coming from the right ear. Reports once she noticed that the pain had stopped Symptoms started Friday, worse on Friday MD Complaint: ear pain Related Data Home Medications Medication Instructions Recorded Confirmed calcium citrate 1,000 mg PO BID 09/07/20 04/07/22 cholecalciferol (vitamin D3) 250 mcg PO BID 09/07/20 04/07/22 [Vitamin D3] coenzyme [id number]-[id number] E 1 cap PO DAILY 09/07/20 04/07/22 ezetimibe 10 mg PO DAILY 09/07/20 04/07/22 ukrhc-ty-3-scf-avb-hossczq-ast 2 cap PO DAILY 09/07/20 04/07/22 [krill oil] magnesium 1,500 mg PO DAILY 09/07/20 04/07/22 oxybutynin chloride 10 mg PO DAILY 09/07/20 04/07/22 potassium chloride [Klor-Con M20] 10 meq PO DAILY 09/07/20 04/07/22 amiodarone 200 mg PO DAILY 10/11/20 04/07/22 apple cider vinegar 1,000 mg PO BID 10/11/20 04/07/22 esomeprazole magnesium 40 mg PO DAILY 10/11/20 04/07/22 apixaban [Eliquis] 5 mg PO DAILY 10/18/20 04/07/22 furosemide 40 mg PO BID 03/06/21 04/07/22 hydroxyzine HCl 25 mg PO 4-6XD PRN 03/06/21 04/07/22 losartan 25 mg PO DAILY 03/06/21 04/07/22 magnesium oxide 400 mg PO DAILY 03/06/21 04/07/22 cranberry 400 mg capsule 400 mg PO DAILY 04/04/21 04/07/22 levothyroxine 25 mcg capsule 75 mcg PO DAILY 04/04/21 04/07/22 metoprolol tartrate 50 mg PO BID 04/26/21 04/07/22 Allergies Allergy/AdvReac Type Severity Reaction Status Date / Time povidone-iodine Allergy Mild blisters Verified 04/07/22 14:47 Mbyimhu-MDW-LcR Reductase Allergy Mild ACHY Verified 04/07/22 14:47 Inhibitor MUSCLES [Wydtxyf-Ner-Kbp Reductase Inhibitor] Review of Systems Review of Systems: All systems reviewed & are unremarkable except as noted in HPI and below Constitutional: Constitutional: Reports no additional constitutional complaints, Denies chills and Denies fever(s) Eyes: Eyes: Reports no additional eye complaints ENT: Reports as per HPI, Denies change in voice, Denies dental pain, Denies vertigo, Denies dizziness, Reports nasal congestion and Denies throat swelling Comments: Ear pain, right Cardiovascular: Cardiovascular: Reports no additional cardiovascular complaints, Denies chest pain and Denies dyspnea Respiratory: Respiratory: Reports no additional respiratory complaints, Denies cough and Denies dyspnea Gastrointestinal: Gastrointestinal: Reports no additional gastrointestinal complaints, Denies abdominal pain, Denies nausea and Denies vomiting Musculoskeletal: Musculoskeletal: Reports no additional musculoskeletal complaints Integumentary/Breasts: Skin/Breast: Reports system reviewed and no additional complaints, except as docu Neurologic: Reports system reviewed and no additional complaints, except as documented, Denies vertigo and Denies dizziness Psychiatric: Psychiatric: Reports no additional psychiatric complaints Allergic/Immunologic: Allergic/Immunologic: Reports no additional allergic/immunologic complaints and Denies throat swelling [facility] Past Medical History Medical History CAD (coronary artery disease) [facility] 09/08/20 with 50% proximal and mid LAD, LCX 40-50% stenosis, nondominant small caliber RCA with widely patent previously placed stent mid LAD. Again identified is the subtotal occlusion 99% of the 2nd obtuse marginal branch with [id number]-vzfl
== END 2022-04-07 15:30 | disposition home or self-care (01) ==
PROVIDERS: Emergency Provider Nurse Practitioner; PCP Family Medicine
DX: H66.011 Acute suppurative otitis media with spontaneous rupture of ear drum, right ear (principal); Z87.891 Personal history of nicotine dependence; I25.10 Atherosclerotic heart disease of native coronary artery without angina pectoris; I13.0 Hypertensive heart and chronic kidney disease with heart failure and stage 1 through stage 4 chronic kidney disease, or unspecified chronic kidney disease; N18.9 Chronic kidney disease, unspecified; I50.9 Heart failure, unspecified; E78.5 Hyperlipidemia, unspecified; E03.9 Hypothyroidism, unspecified; G47.33 Obstructive sleep apnea (adult) (pediatric); I48.0 Paroxysmal atrial fibrillation; I34.0 Nonrheumatic mitral (valve) insufficiency; F41.8 Other specified anxiety disorders
CPT/HCPCS: 99213; G0463

== ENCOUNTER 2023-02-04 19:09 | Observation (INO) | payer MEDICARE, SELFPAY ==
[2023-02-04] VITALS (29 sets, daily range): BP systolic 108–142; BP diastolic 67–93; PULSE 60–99; RESP 11–30; TEMP 37.1; O2SAT 92–100
--- NOTE | ~2023-02-04 | XR_ITS ---
EXAMINATION: XR chest 2V Exam Date/Time: 02/04/2023 19:45 CDT HISTORY: cp, pacemaker in 23, CHF, A-fib Comparison: 10/30/2020, 12/01/2017. RESULT: Lines, tubes, and devices: Cholecystectomy clips. Left chest pacer/AICD with intact leads. Lungs and pleura: Senescent changes. Bibasilar scar/atelectasis. No focal consolidation or pneumotho rax. Stable peripheral right midlung granuloma. Cardiomediastinal silhouette: Stable. Large hiatal hernia. Other: No acute osseous or upper abdominal finding. IMPRESSION: No acute cardiopulmonary process. Reviewed, dictated and finalized at location K.
--- NOTE | 2023-02-04 19:22 | ECG_ITS ---
Measurements Intervals [place] Rate: 62 P: -30 [place]: 83 QRS: 152 QRSD: 151 T: 64 QT: 517 QTc: 526 Interpretive Statements ELECTRONIC ATRIAL PACEMAKER ELECTRONIC VENTRICULAR PACEMAKER BASELINE ARTIFACT- I, II, AVR, AVL NO FURTHER INTERPRETATION IS POSSIBLE ATYPICAL ECG COMPARED TO ECG 10/30/2020 12:05:09 ELECTRONIC PACEMAKER NOW PRESENT Electronically Signed On 02-04-2023 21:51:41 CDT by Efraín Almendarez D.O.
[2023-02-04 19:38] LABS: Basophils Absolute Auto 0.1 K/mm3 (0.0-0.1); Basophils Percent Auto 1.1 % (0.2-1.2); Eosinophils Absolute Auto 0.2 K/mm3 (0-0.3); Eosinophils Percent Auto 2.5 % (0-4.4); Hematocrit 37.3 % (37.0-47.0); Hemoglobin 12.7 g/dL (12.0-15.0); Immature Granulocyte Absolute 0.01 K/mm3 (0.00-0.031); Immature Granulocyte Percent A 0.2 % (0-0.5); Lymphocytes Absolute Auto 1.87 K/mm3 (0.9-3.2); Lymphocytes Percent Auto 29.8 % (18.3-44.2); Mean Corpuscular Hemoglobin 31.9 pg (26-34); Mean Corpuscular Volume 93.7 fl (80-100); Mean Platelet Volume 9.3 fl (7.4-10.4); Monocytes Absolute Auto 0.8 K/mm3 (0.1-0.6); Monocytes Percent Auto 13.2 % (2.6-8.5); Neutrophils Absolute Auto 3.3 K/mm3 (1.3-6.7); Neutrophils Percent Auto 53.2 % (45.5-73.1); Platelet Count Result 176 k/mm3 (150-375); Red Blood Count 3.98 M/mm3 (4.2-5.4); Red Cell Distribution Width 13.8 % (11.5-14.5); White Blood Count 6.3 K/mm3 (4.5-10.0)
[2023-02-04 19:47] LABS: INR 1.3; Partial Thromboplastin Time 34.7 SECONDS (22.3-36.8); Prothrombin Time 15.5 Seconds (11.1-14.7)
[2023-02-04 19:50] LABS: Alanine Aminotransferase 40 U/L (6-35); Albumin Level 4.1 g/dL (3.5-5.1); Alkaline Phosphatase 74 U/L (38-126); Anion Gap 5 mmol/L (8-16); Aspartate Amino Transferase 43 U/L (14-36); Bilirubin,Total 0.5 mg/dL (0.2-1.3); Blood Urea Nitrogen 17 mg/dL (7-17); Calcium 9.2 mg/dL (8.4-10.2); Carbon Dioxide 29 mmol/L (22-30); Chloride 102 mmol/L (98-107); Estimated CRCL calculation 36 ml/min; Estimated Glomerular Filt Rate 53; Glucose 92 mg/dL (65-110); Lipase 97 U/L (23-300); Sodium 136 mmol/L (137-145)
[2023-02-04 20:02] LABS: Troponin I < 0.012 ng/mL (0.000-0.034)
[2023-02-04] MEDS: PANTOPRAZOLE 40 MG TABLET PO (20:07)
[2023-02-04] MEDS: BELLADONNA ALK/PHENOB ELIX 10 ML, MAG HYDROX/ALUMINUM HYD/SIMETH 30 ML, LIDOCAINE HCL 2... PO (20:07)
--- NOTE | 2023-02-04 20:22 | ED.CHESTPAIN ---
HPI - Chest Pain General Chief Complaint: Chest Pain Stated Complaint: CHEST PAIN Time Seen by Provider: 02/04/23 19:11 History of Present Illness HPI narrative: This is an 82-year-old female with past medical history of A-fib status post pacemaker on Eliquis, hypothyroidism, hyperlipidemia, who presents to the emergency department with pressure-like chest pain beginning at approximately 6 PM. Patient states she was eating pizza when she felt a pressure-like pain that did not improve despite belching. She rated the pain 6/10 and states it has gradually improved on its own but is still present. She has no other complaints today. Related Data Home Medications Medication Instructions Recorded Confirmed calcium citrate 500 mg (2,376 mg) 400 mg PO DAILY 09/07/20 02/05/23 effervescent tablet cholecalciferol (vitamin D3) 125 43,000 mcg PO QHS 09/07/20 02/05/23 mcg (5,000 unit) tablet (Vitamin D3) coenzyme Q01-dbpfakr E 100 mg-100 1 cap PO DAILY 09/07/20 02/05/23 unit capsule ezetimibe 10 mg tablet 10 mg PO DAILY 09/07/20 02/05/23 krill 1,000 mg-omega-3 170 mg-dha 2 cap PO DAILY 09/07/20 02/05/23 50 mg-epa 80 jr-oowjfe-dxygq capsule (krill oil) oxybutynin chloride 10 mg 10 mg PO DAILY 09/07/20 02/05/23 tablet,extended release 24 hr potassium chloride 20 mEq 20 meq PO DAILY 09/07/20 02/05/23 tablet,extended release(part/cryst) (Klor-Con M) apple cider vinegar 500 mg tablet 1,500 mg PO DAILY 10/11/20 02/05/23 esomeprazole magnesium 40 mg 40 mg PO DAILY 10/11/20 02/05/23 capsule,delayed release apixaban 5 mg tablet (Eliquis) 5 mg PO BID 10/18/20 02/05/23 furosemide 40 mg tablet 40 mg PO BID 03/06/21 02/05/23 hydroxyzine HCl 25 mg tablet 25 mg PO 4-6XD PRN Itching 03/06/21 02/05/23 losartan 25 mg tablet 25 mg PO EVERY OTHER DAY 03/06/21 02/05/23 magnesium oxide 400 mg (241.3 mg 800 mg PO QHS 03/06/21 02/05/23 magnesium) tablet cranberry 400 mg capsule 1,000 mg PO DAILY 04/04/21 02/05/23 levothyroxine 25 mcg capsule 50 mcg PO DAILY 04/04/21 02/05/23 metoprolol tartrate 50 mg tablet 50 mg PO BID 04/26/21 02/05/23 vitamin B complex 2 tablet PO DAILY 11/26/22 02/05/23 zolpidem 5 mg tablet 5 mg PO QHS PRN Sleep 11/26/22 02/05/23 biotin 1 mg capsule 1 mg PO DAILY 02/05/23 02/05/23 citalopram 40 mg tablet 40 mg PO DAILY 02/05/23 02/05/23 Allergies Allergy/AdvReac Type Severity Reaction Status Date / Time povidone-iodine Allergy Mild blisters Verified 11/26/22 13:38 Mjsmgcv-MWG-SpH Reductase Allergy Mild ACHY Verified 11/26/22 13:38 Inhibitor MUSCLES [Tantbau-Oqq-Doa Reductase Inhibitor] Review of Systems Review of Systems: CONSTITUTIONAL: Denies fever, chills, or sweats. CARDIOVASCULAR: Substernal chest pressure denies palpitations, or edema. RESPIRATORY: Denies cough or dyspnea. GASTROINTESTINAL: Denies abdominal pain, nausea, vomiting, or diarrhea. GENITOURINARY: Denies dysuria or hematuria. SKIN: Denies rash or itching. MUSCULOSKELETAL: Denies back pain, joint pain, or myalgia. NEUROLOGIC: Denies headache, numbness, dizziness, or weakness. PSYCHIATRIC: Denies anxiety or depression. [facility] Past Medical History Medical History CAD (coronary artery disease) [facility] 09/08/20 with 50% proximal and mid LAD, LCX 40-50% stenosis, nondominant small caliber RCA with widely patent previously placed stent mid LAD. Again identified is the subtotal occlusion 99% of the 2nd obtuse marginal branch with zjro-qt-ooes collateral filling largely unchanged compared to [facility] 2017. CHF (congestive heart failure) Chronic kidney disease Depression with anxiety Dyslipidemia Hypertension Hypothyroid Mitral regurgitation ESTEBAN (obstructive sleep apnea) Paroxysmal atrial fibrillation Surgical History Surgical History History of cataract surgery History of cholecystectomy History of tonsillectomy Family Hist
[2023-02-04 22:40] LABS: Troponin I < 0.012 ng/mL (0.000-0.034)
[2023-02-05] VITALS (15 sets, daily range): BP systolic 116–147; BP diastolic 68–96; PULSE 60–75; RESP 13–19; TEMP 36.2–36.6; O2SAT 93–100; BMI 23.3
[2023-02-05 01:24] LABS: Troponin I < 0.012 ng/mL (0.000-0.034)
--- NOTE | 2023-02-05 03:54 | ADMGEN ---
This patient, Aster Nevarez, was admitted to IMU Room 213-01. Patient/family oriented to hospital policies and general routines including ID bracelet, bed and alarms, visiting hours, pain management, procedures, bathroom and other care routines, personal items, smoking policy, room service/diet, and visiting hours. Information on how to activate the Rapid Response Team has been discussed. Patient/Family are encouraged to report perceived risks to care and to ask questions if they do not understand what they are told or what they should do.
[2023-02-05 05:07] LABS: Basophils Percent Auto 0.8 % (0.2-1.2); Eosinophils Absolute Auto 0.2 K/mm3 (0-0.3); Hemoglobin 12.1 g/dL (12.0-15.0); Immature Granulocyte Absolute 0.01 K/mm3 (0.00-0.031); Immature Granulocyte Percent A 0.2 % (0-0.5); Lymphocytes Absolute Auto 1.77 K/mm3 (0.9-3.2); Lymphocytes Percent Auto 33.7 % (18.3-44.2); Mean Corpuscular HGB Conc 33.6 g/dl (32-36); Mean Corpuscular Hemoglobin 31.8 pg (26-34); Mean Corpuscular Volume 94.7 fl (80-100); Mean Platelet Volume 9.5 fl (7.4-10.4); Monocytes Absolute Auto 0.7 K/mm3 (0.1-0.6); Monocytes Percent Auto 12.6 % (2.6-8.5); Neutrophils Absolute Auto 2.6 K/mm3 (1.3-6.7); Neutrophils Percent Auto 48.7 % (45.5-73.1); Platelet Count Result 163 k/mm3 (150-375); Red Cell Distribution Width 13.7 % (11.5-14.5); White Blood Count 5.3 K/mm3 (4.5-10.0)
[2023-02-05 05:18] LABS: Anion Gap 2 mmol/L (8-16); Blood Urea Nitrogen 18 mg/dL (7-17); Calcium 8.8 mg/dL (8.4-10.2); Carbon Dioxide 32 mmol/L (22-30); Chloride 102 mmol/L (98-107); Estimated CRCL calculation 36 ml/min; Estimated Glomerular Filt Rate 53; Glucose 91 mg/dL (65-110); Potassium 3.9 mmol/L (3.4-5.0); Sodium 136 mmol/L (137-145)
[2023-02-05 05:33] LABS: Troponin I < 0.012 ng/mL (0.000-0.034)
[2023-02-05] MEDS: ASPIRIN 81 MG CHEWABLE TABLET PO (07:33)
[2023-02-05] MEDS: POTASSIUM CHLORIDE 20 MEQ TABLET.ER PO (09:38)
[2023-02-05] MEDS: APIXABAN 5 MG TABLET PO (09:38)
[2023-02-05] MEDS: PANTOPRAZOLE 40 MG TABLET PO (09:38)
[2023-02-05] MEDS: CITALOPRAM HYDROBROMIDE 20 MG TABLET 40 MG PO (09:39)
[2023-02-05] MEDS: LEVOTHYROXINE SODIUM 50 MCG TABLET PO (09:39)
[2023-02-05] MEDS: METOPROLOL TARTRATE 50 MG TAB PO (09:39)
[2023-02-05] MEDS: oxyBUTYnin CHLORIDE XL 5 MG TAB.ER.24 10 MG PO (09:40)
[2023-02-05] MEDS: VITAMIN B COMPLEX CAPSULE 2 CAP PO (09:40)
[2023-02-05] MEDS: FUROSEMIDE 40 MG TABLET PO (09:40)
[2023-02-05] MEDS: LOSARTAN POTASSIUM 25 MG TABLET PO (12:25)
--- NOTE | 2023-02-05 13:06 | PM.DS ---
DS: Admitting Diagnosis Discharge Date February 05, 2023 Admitting Diagnosis Chest pain DS: Discharge Diagnosis Discharge Diagnosis (1) Benign hypertension with chronic kidney disease: Code(s): I12.9 - Hypertensive chronic kidney disease with stage 1 through stage 4 chronic kidney disease, or unspecified chronic kidney disease Status: Acute (2) ESTEBAN (obstructive sleep apnea): Code(s): G47.33 - Obstructive sleep apnea (adult) (pediatric) Status: Acute (3) Atrial fibrillation with RVR: Code(s): I48.91 - Unspecified atrial fibrillation Status: Acute (4) CAD (coronary artery disease): Code(s): I25.10 - Atherosclerotic heart disease of [place] coronary artery without angina pectoris Status: Acute (5) Dyslipidemia: Code(s): E78.5 - Hyperlipidemia, unspecified Status: Acute (6) Hypertension: Code(s): I10 - Essential (primary) hypertension Status: Acute (7) Chest pain: Code(s): R07.9 - Chest pain, unspecified Status: Acute DS: Summary Hospital Course Hospital Course: Admitted for chest pain, cardiac enzymes were negative. Patient is no longer having chest pain and has not Overnite. 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 Time Spent with Patient Time attestation: Total time spent providing and/or coordinating discharge services: Exam Narrative: General: alert and oriented Psych: appropriate mood nad affect Eyes: PERRLA Neck: Trachea midline, no new lesions Skin: no changes Lungs: CTA Cardiac: Normal S1,S2, no MGR ABD: soft, nd, nt, nbs Ext: no new lesions, no cce Vasc: Pulses intact DS: Data Data Completed and Pending Labs on day of discharge: Labs from last 24 hours 02/05/23 02/05/23 02/05/23 04:53 04:53 04:53 WBC 5.3 RBC 3.80 L Hgb 12.1 Hct 36.0 L MCV 94.7 MCH 31.8 MCHC 33.6 RDW 13.7 Plt Count 163 MPV 9.5 Immature Gran % (Auto) 0.2 Neut % (Auto) 48.7 Lymph % (Auto) 33.7 Patrick % (Auto) 12.6 H Eos % (Auto) 4.0 Baso % (Auto) 0.8 Lymph # (Auto) 1.77 Patrick # (Auto) 0.7 H Eos # (Auto) 0.2 Baso # (Auto) 0.0 Abs Immat Gran (auto) 0.01 Absolute Neuts (auto) 2.6 Absolute Nucleated RBC 0.0 Nucleated RBC % 0.0 PT INR APTT Sodium 136 L Potassium 3.9 Chloride 102 Carbon Dioxide 32 H Anion Gap 2 L BUN 18 H Creatinine 1.00 Estim Creat Clear Calc 36 Estimated GFR 53 L Glucose 91 Calcium 8.8 Total Bilirubin AST ALT Alkaline Phosphatase Troponin I < 0.012 Total Protein Albumin Lipase 02/05/23 02/04/23 02/04/23 00:56 22:13 19:25 WBC 6.3 RBC 3.98 L Hgb 12.7 Hct 37.3 MCV 93.7 MCH 31.9 MCHC 34.0 RDW 13.8 Plt Count 176 MPV 9.3 Immature Gran % (Auto) 0.2 Neut % (Auto) 53.2 Lymph % (Auto) 29.8 Patrick % (Auto) 13.2 H Eos % (Auto) 2.5 Baso % (Auto) 1.1 Lymph # (Auto) 1.87 Patrick # (Auto) 0.8 H Eos # (Auto) 0.2 Baso # (Auto) 0.1 Abs Immat Gran (auto) 0.01 Absolute Neuts (auto) 3.3 Absolute Nucleated RBC 0.0 Nucleated RBC % 0.0 PT INR APTT Sodium Potassium Chloride Carbon Dioxide Anion Gap BUN Creatinine Estim Creat Clear Calc Estimated GFR Glucose Calcium Total Bilirubin AST ALT Alkaline Phosphatase Troponin I < 0.012 < 0.012 Total Protein Albumin Lipase 02/04/23 02/04/23 19:24 19:24 WBC RBC Hgb Hct MCV MCH MCHC RDW Plt Count MPV Immature Gran % (Auto) Neut % (Auto) Lymph % (Auto) Patrick % (Auto) Eos % (Auto) Baso % (Auto) Lymph # (Auto) Patrick # (Auto) Eos # (Auto) Baso # (Auto) Abs Immat Gran (auto) Absolute Neuts (auto) Absolute Nucleated RBC Nucleated RBC % PT 15.5 H INR 1.3 APTT 34.7 Sodium 136 L Potassium 4.0 Chlori
--- NOTE | 2023-02-05 13:08 | PM.IMHP ---
H&P: HPI History of Present Illness Date/Time: 02/05/23 13:08 Chief Complaint: Chest pain PMFSH Past Medical History Medical History CAD (coronary artery disease) [facility] 09/08/20 with 50% proximal and mid LAD, LCX 40-50% stenosis, nondominant small caliber RCA with widely patent previously placed stent mid LAD. Again identified is the subtotal occlusion 99% of the 2nd obtuse marginal branch with xyfx-sl-amfq collateral filling largely unchanged compared to [facility] 2017. CHF (congestive heart failure) Chronic kidney disease Depression with anxiety Dyslipidemia Hypertension Hypothyroid Mitral regurgitation ESTEBAN (obstructive sleep apnea) Paroxysmal atrial fibrillation Surgical History Surgical History History of cataract surgery History of cholecystectomy History of tonsillectomy Family History Family History Father Acute myocardial infarction Sibling Diabetes mellitus Mother Dementia Hypertension Social History Social History Social History: Patient smoked 2 packs per day for 10 years quit in 1969. She drinks 1-2 alcoholic drinks per week. No drug use. She is a full code. She nominated her to be the individual who would make medical decisions for her if she is not able. She lives at home with her and a friend of the family. Smoking packs per day: 3 Smoking cigarettes per day: 60.0 Years smoked: 15 Smoking pack-years: 45.00 Smoking status: Former smoker Tobacco type: cigarettes Second hand tobacco smoke exposure: Yes Smoking end date: 11/17/88 Alcohol intake: current Drinks per week: 0 Substance use: never Substance use type: does not use Lack of Transportation: No Lack of Food: Never True Current Housing: I Have Housing Concerned About Future Housing: No Difficulty Paying Gas/Electric Bills: No Difficulty Paying for Meds: No Currently Unemployed: No Education: High School Diploma/GED Difficulty w/ Childcare or Family Care: No Living arrangements: with family Gender identity (if verbalized by the patient): Female Spiritual care concerns: No Meds Home Medications and Allergies Home Medications Medication Instructions Recorded Confirmed Type calcium citrate 500 mg (2,376 mg) 400 mg PO DAILY 09/07/20 02/05/23 History effervescent tablet cholecalciferol (vitamin D3) 125 43,000 mcg PO QHS 09/07/20 02/05/23 History mcg (5,000 unit) tablet (Vitamin D3) coenzyme [id number]-[id number] E 100 mg-100 1 cap PO DAILY 09/07/20 02/05/23 History unit capsule ezetimibe 10 mg tablet 10 mg PO DAILY 09/07/20 02/05/23 History krill 1,000 mg-omega-3 170 mg-dha 2 cap PO DAILY 09/07/20 02/05/23 History 50 mg-epa 80 dr-fpyyon-fqatx capsule (krill oil) oxybutynin chloride 10 mg 10 mg PO DAILY 09/07/20 02/05/23 History tablet,extended release 24 hr potassium chloride 20 mEq 20 meq PO DAILY 09/07/20 02/05/23 History tablet,extended release(part/cryst) (Klor-Con M) apple cider vinegar 500 mg tablet 1,500 mg PO DAILY 10/11/20 02/05/23 History esomeprazole magnesium 40 mg 40 mg PO DAILY 10/11/20 02/05/23 History capsule,delayed release apixaban 5 mg tablet (Eliquis) 5 mg PO BID 10/18/20 02/05/23 History furosemide 40 mg tablet 40 mg PO BID 03/06/21 02/05/23 History hydroxyzine HCl 25 mg tablet 25 mg PO 4-6XD PRN Itching 03/06/21 02/05/23 History losartan 25 mg tablet 25 mg PO EVERY OTHER DAY 03/06/21 02/05/23 History magnesium oxide 400 mg (241.3 mg 800 mg PO QHS 03/06/21 02/05/23 History magnesium) tablet cranberry 400 mg capsule 1,000 mg PO DAILY 04/04/21 02/05/23 History levothyroxine 25 mcg capsule 50 mcg PO DAILY 04/04/21 02/05/23 History metoprolol tartrate 50 mg tablet 50 mg PO BID 04/26/21 02/05/23 History vit
== END 2023-02-05 13:33 | disposition home or self-care (01) ==
LOC: ANHED 19:45 → ANHIMU 02-05 04:18
PROVIDERS: Admitting Provider Chiropractor; Emergency Provider Preventive Medicine Aerospace Medicine; PCP Family Medicine; Visit Provider Chiropractor
DX: I13.0 Hypertensive heart and chronic kidney disease with heart failure and stage 1 through stage 4 chronic kidney disease, or unspecified chronic kidney disease (principal); N18.9 Chronic kidney disease, unspecified; I50.9 Heart failure, unspecified; G47.33 Obstructive sleep apnea (adult) (pediatric); I48.91 Unspecified atrial fibrillation; Z95.5 Presence of coronary angioplasty implant and graft; I25.10 Atherosclerotic heart disease of native coronary artery without angina pectoris; E78.5 Hyperlipidemia, unspecified; R07.9 Chest pain, unspecified; Z95.0 Presence of cardiac pacemaker; E03.9 Hypothyroidism, unspecified; F41.8 Other specified anxiety disorders; Z87.891 Personal history of nicotine dependence; F10.90 Alcohol use, unspecified, uncomplicated; Z79.01 Long term (current) use of anticoagulants; Z79.899 Other long term (current) drug therapy; Z82.49 Family history of ischemic heart disease and other diseases of the circulatory system; Z83.3 Family history of diabetes mellitus; Z81.8 Family history of other mental and behavioral disorders
CPT/HCPCS: 36415; 71046; 80048; 80053; 83690; 84484; 85025; 85610; 85730; 93005; 99285; A9270; G0378

== ENCOUNTER 2023-05-06 10:54 | Outpatient (CLI) | payer MEDICARE, SELFPAY ==
--- NOTE | ~2023-05-06 | XR_ITS ---
AP and oblique views of the bilateral ribs Clinical History: Pain Findings: No rib fracture is seen. Osseous alignment is anatomic. Lungs are clear, without focal cons olidation or pleural effusion. Cardiomediastinal contour is within normal limits, with pacemaker priya ce. Soft tissues are unremarkable. Impression: No rib fracture is seen. Reviewed, dictated and finalized at [facility]. Impression: No rib fracture is seen.
== END 2023-05-06 10:55 | disposition home or self-care (01) ==
PROVIDERS: PCP Family Medicine; Visit Provider Family Medicine
DX: R07.9 Chest pain, unspecified (principal); V89.2XXA Person injured in unspecified motor-vehicle accident, traffic, initial encounter
CPT/HCPCS: 71111

== ENCOUNTER 2023-11-12 09:57 | Outpatient (CLI) | payer MEDICARE, SELFPAY ==
--- NOTE | ~2023-11-12 | US_ITS ---
EXAMINATION: US renal BI DATE: 11/12/2023 10:29 INDICATION: Bilateral flank pain TECHNIQUE: Multiple ultrasound grayscale images of the kidneys were obtained. COMPARISON: 06/21/2021 FINDINGS: The right kidney measures 9.1 x 4.5 x 4.9 cm. The left kidney measures 9.3 x 4.3 x 3.6 cm. The kidney s demonstrate normal echogenicity with relatively diffuse mild cortical thickening of both kidneys. T here is no hydronephrosis in either kidney. No stones identified. There is diffuse bladder wall thick ening with undulating contour to the mucosal surface most likely related to incomplete distention whi ch limits evaluation. IMPRESSION: 1. Mild likely age-related bilateral renal atrophy. No hydronephrosis. 2. Diffuse mild bladder wall thickening with undulating mucosal contour likely related to underdisten tion which limits evaluation. Differential would include sequela of chronic outlet obstruction, cysti tis either acute or chronic or less likely malignancy. Correlate with urinalysis. Reviewed, dictated and finalized at location A. [facility] IMPRESSION: 1. Mild likely age-related bilateral renal atrophy. No hydronephrosis. 2. Diffuse mild bladder wall thickening with undulating mucosal contour likely related to underdistention which limits evaluation. Differential would include sequela of chronic outlet obstruction, cystitis either acute or chronic or less likely malignancy. Correlate with urinalysis.
== END 2023-11-12 09:58 | disposition home or self-care (01) ==
PROVIDERS: PCP Family Medicine; Visit Provider Internal Medicine Nephrology
DX: R93.2 Abnormal findings on diagnostic imaging of liver and biliary tract (principal)
CPT/HCPCS: 76775

== ENCOUNTER 2023-12-10 09:28 | Outpatient (CLI) | payer MEDICARE, SELFPAY ==
--- NOTE | ~2023-12-10 | CT_ITS ---
CT of the Abdomen and Pelvis: Indication: Abdominal Technique: 2.5 mm axial scans were obtained through the abdomen and pelvis following intravenous adm inistration of 100 cc of Omnipaque 350. Dose reduction technique was used on this scan by utilizing a utomated exposure control and iterative reconstruction technique. The dose-length product (DLP) was 4 19.79 mGy-cm. Findings: Scans through the lung bases demonstrate large hiatal hernia, containing essentially entir e stomach, with organoaxial volvulus.. Small left hepatic lobe cysts are present. Cholecystectomy clips are noted. The spleen, pancreas, adr enals and kidneys are within normal limits. There is mild aneurysmal dilatation of the infrarenal abd ominal aorta to 3 cm. There are atherosclerotic calcifications of the aorta. No lymphadenopathy. No bowel obstruction or bowel wall thickening. There is no evidence to suggest acute appendicitis. Images through the pelvis were performed. Urinary bladder grossly unremarkable. No significant pelvic mass evident. Small calcified fibroid noted. No ascites. Compression fracture of T12 present, probab ly acute to subacute. Impression: Probable acute to subacute T12 compression fracture. Large hiatal hernia, containing the entire stomach, with organoaxial volvulus. 3 cm infrarenal abdominal aortic aneurysm. Reviewed, dictated and finalized at location . R [employer] Impression: Probable acute to subacute T12 compression fracture. Large hiatal hernia, containing the entire stomach, with organoaxial volvulus. 3 cm infrarenal abdominal aortic aneurysm.
[2023-12-10 09:50] LABS: Estimated Glomerular Filt Rate 31
== END 2023-12-10 09:29 | disposition home or self-care (01) ==
PROVIDERS: PCP Family Medicine; Visit Provider Family Medicine
DX: R10.9 Unspecified abdominal pain (principal); K44.9 Diaphragmatic hernia without obstruction or gangrene; I71.40 Abdominal aortic aneurysm, without rupture, unspecified
CPT/HCPCS: 74177; Q9967

== ENCOUNTER → 2023-12-18 11:08 | Outpatient (CLI) | payer MEDICARE, SELFPAY ==
--- NOTE | ~2023-12-18 | DEXA_ITS ---
Bone Density Report Name: TIMOTHY QUINTERO Age: 83 Sex: Female Ethnicity: White Date of : 1940 Indication: osteopenia; height loss; postmenopausal Referring Provider: SHAHEEN, FAIZAN Jonas Study: Bone densitometry was performed. Exam Date: December 18, 2023 Accession number: [id number] Bone Density: Region BMD T-score Z-score Classification AP Spine (L1-L4) 0.841 -1.9 0.9 Osteopenia Femoral Neck (Left) 0.550 -2.7 -0.3 Osteoporosis Total Hip (Left) 0.735 -1.7 0.5 Osteopenia Femoral Neck (Right) 0.613 -2.1 0.3 Osteopenia Total Hip (Right) 0.727 -1.8 0.4 Osteopenia Total Hip Mean 0.731 -1.8 0.5 Osteopenia World Health Organization criteria for BMD impression classify patients as: Normal (T-score at or above -1.0), Osteopenia (T-score between -1.0 and -2.5), or Osteoporosis (T-score at or below -2.5). 10-year Fracture Risk: FRAX not reported because: Some T-score for Spine Total or Hip Total or Femoral Neck at or below -2.5 Previous Exams: Region Exam Age BMD T-score BMD Change BMD Change Date g/cm2 vs Baseline vs Previous AP Spine(L1-L4) 12/18/2023 83 0.841 -1.9 0.018 0.018 08/07/2021 81 0.823 -2.0 Total Hip(Left) 12/18/2023 83 0.735 -1.7 -0.067* -0.067* 08/07/2021 81 0.801 -1.2 Total Hip(Right) 12/18/2023 83 0.727 -1.8 -0.029* -0.029* 08/07/2021 81 0.756 -1.5 *Denotes significance at 95% confidence level, LSC for AP Spine = 0.022 g/cm2, LSC for Total Hip = 0.027 g/cm2 Clinical Information Provided by Patient: Has used the following medications: Vitamin D, Calcium Patient maximum height was 66 Menopause Age: 54 Drinks caffeinated beverages Onset of menses at age 13 Number of children 3 Impression: The patient has osteoporosis, based on the Left Femoral Neck T-score. The BMD for the Total Hip(Left) decreased, changing by -0.067 since the last DXA exam. The BMD for the Total Hip(Right) decreased, changing by -0.029 since the last DXA exam. Discussion: INCREASED RISK OF FRACTURE. BONE DENSITY IS UNDESIRABLY LOW AT ONE OR MORE SKELETAL SITES, CONSISTENT WITH POSTMENOPAUSAL OSTEOPOROSIS. This patient's lowest T-score meets the World Health Organization's (WHO) criteria for osteoporosis at one or more sites (T-score -2.5 or below). In untreated patients, the risk of osteoporotic fracture increases approximately two-fold for each 1.0 SD decrease in T-score. Low bone density is not
== END ==
PROVIDERS: PCP Family Medicine; Visit Provider Family Medicine
DX: M81.0 Age-related osteoporosis without current pathological fracture (principal); Z78.0 Asymptomatic menopausal state
CPT/HCPCS: 77080

== ENCOUNTER 2024-01-07 00:21 | Day surgery (SDC) | payer MEDICARE, SELFPAY ==
[2023-12-19 13:54] VITALS: BMI 24.7
--- NOTE | 2024-01-02 14:24 | PC.NURSE ---
Spoke with PATIENT regarding medication ELIQUIS_. Pt. verbalizes understanding that the last dose of ELIQUIS is to be taken on 01/04/2024 and the Endoscopist will instruct them when to restart after the procedure.
--- NOTE | 2024-01-05 09:18 | SUR.PREOP ---
Patient called regarding upcoming procedure. Reviewed preop instructions, appointment times, and procedure prep.
--- NOTE | 2024-01-06 18:38 | PM.HPGS ---
History of Present Illness History of Present Illness Consent: Risks, benefits, and alternatives have been discussed and questions answered. Patient agrees to proceed with procedure. Chief complaint: Diaphragmatic hernia,Eason's Esophagus,Dysphagia Narrative: Aster Nevarez is a 83 year old female who is here for follow-up on Eason's esophagus. She was diagnosed with Eason's in 1990 and has been getting EGDs every 3 years.? Her last EGD is in [address] Rivero. Biopsies were negative for any dysplasia. Also biopsies did not show any Eason's mucosa on the last study. Patient states for the past 9 months she has had intermittent episodes of dysphagia, occurs with solids and liquids both, states if feels like her food sits right in her lower chest area.? When this occurs she does vomit.? She denies any nausea or significant abdominal pain. CT scan done on December 10 showed a large hiatal hernia containing the entire stomach, with organo-axial volvulus. Review of Systems Review of Systems: All systems reviewed & are unremarkable except as noted in HPI and below PMFSH Past Medical History Medical History Barretts esophagus CAD (coronary artery disease) [facility] 09/08/20 with 50% proximal and mid LAD, LCX 40-50% stenosis, nondominant small caliber RCA with widely patent previously placed stent mid LAD. Again identified is the subtotal occlusion 99% of the 2nd obtuse marginal branch with hoax-lb-lmtq collateral filling largely unchanged compared to [facility] 2017. CHF (congestive heart failure) Chronic kidney disease Depression with anxiety Dyslipidemia Dysphagia Hiatal hernia Hypertension Hypothyroid Mitral regurgitation ESTEBAN (obstructive sleep apnea) Paroxysmal atrial fibrillation Surgical History Surgical History History of cataract surgery History of cholecystectomy History of tonsillectomy Family History Family History Father Acute myocardial infarction Sibling Diabetes mellitus Mother Dementia Hypertension Social History Social History Social History: Patient smoked 2 packs per day for 10 years quit in 1969. She drinks 1-2 alcoholic drinks per week. No drug use. She is a full code. She nominated her to be the individual who would make medical decisions for her if she is not able. She lives at home with her and a friend of the family. Smoking packs per day: 3 Smoking cigarettes per day: 60.0 Years smoked: 15 Smoking pack-years: 45.00 Smoking status: Never smoker Tobacco type: cigarettes Second hand tobacco smoke exposure: Yes Smoking end date: 11/17/88 Alcohol intake: current Drinks per week: 0 Substance use: never Substance use type: does not use Do You Feel Safe in your Home?: Yes Lack of Transportation: No Lack of Food: Never True Current Housing: I Have Housing Concerned About Future Housing: No Difficulty Paying Gas/Electric Bills: No Difficulty Paying for Meds: No Currently Unemployed: No Education: High School Diploma/GED Difficulty w/ Childcare or Family Care: No Living arrangements: with family Gender identity (if verbalized by the patient): Female Sexual Orientation (if Verbalized by the Patient): Straight or Heterosexual Spiritual care concerns: No Meds Home Medications and Allergies Home Medications Medication Instructions Recorded Confirmed Type ezetimibe 10 mg tablet 10 mg PO DAILY 09/07/20 01/07/24 History oxybutynin chloride 10 mg 10 mg PO DAILY 09/07/20 01/07/24 History tablet,extended release 24 hr potassium chloride 20 mEq 20 meq PO DAILY 09/07/20 01/07/24 History tablet,extended release(part/cryst) (Klor-Con M) esomeprazole magnesium 40 mg 40 mg PO DAILY 10/11/20 01/07/24 History capsule,
[2024-01-07 11:45] VITALS: BP 164/103; PULSE 63; RESP 18; TEMP 36.1; O2SAT 100; BMI 25.7
[2024-01-07] MEDS: LACTATED RINGERS 1,000 ML 150 ML IV CONT (12:05)
--- NOTE | 2024-01-07 12:49 | WPDANESEPPF ---
Anes - Initial Pre Proc Eval Procedure: Operation Date: 01/07/24 13:00 Proposed Procedures p Esophagogastroduodenoscopy - Kosta Yates MD Date/Time: 01/07/24 12:49 Surgeon: Kosta Yates MD Pre Op Diagnosis: Diaphragmatic hernia,Eason's Esophagus,Dysphagia Patient Data Age: 83 Gender: F Height: 1.63 m Weight: 67.9 kg Last Vital Signs Temp 97.0 F L 01/07/24 11:45 Pulse 63 01/07/24 11:45 Resp 18 01/07/24 11:45 BP 164/103 H 01/07/24 11:45 Pulse Ox 100 01/07/24 11:45 O2 Del Method Room Air 01/07/24 11:45 Allergies Allergy/AdvReac Type Severity Reaction Status Date / Time Lwclitk-JYA-FhA Reductase Allergy Intermediate ACHY Verified 01/07/24 11:54 Inhibitor MUSCLES [Zwaaevx-Zry-Jto Reductase Inhibitor] povidone-iodine Allergy Mild blisters Verified 01/07/24 11:54 Home Medications Medication Instructions Recorded Confirmed Type ezetimibe 10 mg tablet 10 mg PO DAILY 09/07/20 01/07/24 History oxybutynin chloride 10 mg 10 mg PO DAILY 09/07/20 01/07/24 History tablet,extended release 24 hr potassium chloride 20 mEq 20 meq PO DAILY 09/07/20 01/07/24 History tablet,extended release(part/cryst) (Klor-Con M) esomeprazole magnesium 40 mg 40 mg PO DAILY 10/11/20 01/07/24 History capsule,delayed release apixaban 5 mg tablet (Eliquis) 5 mg PO BID 10/18/20 01/07/24 History furosemide 40 mg tablet 40 mg PO DAILY 03/06/21 01/07/24 History hydroxyzine HCl 25 mg tablet 25 mg PO 4-6XD PRN Itching 03/06/21 01/07/24 History losartan 25 mg tablet 25 mg PO EVERY OTHER DAY 03/06/21 01/07/24 History magnesium oxide 400 mg (241.3 mg 1,200 mg PO QACDINNER 03/06/21 01/07/24 History magnesium) tablet metoprolol tartrate 50 mg tablet 50 mg PO BID 04/26/21 01/07/24 History vitamin B complex 2 tablet PO DAILY 11/26/22 01/07/24 History citalopram 40 mg tablet 40 mg PO DAILY 02/05/23 01/07/24 History Prevagen 1 cap PO DAILY 12/19/23 01/07/24 History apple cider vinegar 300 mg tablet 900 mg PO DAILY 12/19/23 01/07/24 History calcium citrate 200 mg (950 mg) 400 mg PO DAILY 12/19/23 01/07/24 History tablet cholecalciferol (vitamin D3) 10 10 mcg PO DAILY 12/19/23 01/07/24 History mcg (400 unit) tablet (Vitamin D3) coQ10 (ubiquinol) 100 mg capsule 100 mg PO DAILY 12/19/23 01/07/24 History docusate sodium 100 mg tablet 100 mg PO HS 12/19/23 01/07/24 History krill 350 mg-omega-3 90 mg-dha 24 2 cap PO DAILY 12/19/23 01/07/24 History mg-epa 50 ql-cgqrcid-gzvhi capsule ([place]-3 Krill Oil) levothyroxine 75 mcg tablet 75 mcg PO DAILY 12/19/23 01/07/24 History Patient hx anesthesia problems: none Family hx anesthesia problems: none Results Review: All pre-operative results and documents have been reviewed as part of the pre-operative evaluation. [facility] Past Medical History Medical History Barretts esophagus CAD (coronary artery disease) [facility] 09/08/20 with 50% proximal and mid LAD, LCX 40-50% stenosis, nondominant small caliber RCA with widely patent previously placed stent mid LAD. Again identified is the subtotal occlusion 99% of the 2nd obtuse marginal branch with skff-sp-mwfn collateral filling largely unchanged compared to [facility] 2017. CHF (congestive heart failure) Chronic kidney disease Depression with anxiety Dyslipidemia Dysphagia Hiatal hernia Hypertension Hypothyroid Mitral regurgitation ESTEBAN (obstructive sleep apnea) Paroxysmal atrial fibrillation Surgical History Surgical History History of cataract surgery History of cholecystectomy History of tonsillectomy Family History Family History Father Acute myocardial infarction Sibling Diabetes mellitus Mother Dementia Hypertension Social History Social History Social History: Patient smoke
[2024-01-07 13:24] VITALS: BP 121/68; PULSE 60; RESP 16; O2SAT 93
[2024-01-07 13:34] VITALS: BP 125/74; PULSE 64; RESP 18; O2SAT 94
[2024-01-07 13:44] VITALS: BP 141/75; PULSE 69; RESP 22; O2SAT 96
== END 2024-01-07 14:10 | disposition home or self-care (01) ==
PROVIDERS: PCP Family Medicine; Visit Provider Internal Medicine Gastroenterology
PROC: 0DJ08ZZ Inspection of Upper Intestinal Tract, Via Natural or Artificial Opening Endoscopic (ICD-10-PCS; CPT 43235; principal; 2024-01-07 13:00)
DX: K22.70 Barrett's esophagus without dysplasia (principal); R13.10 Dysphagia, unspecified; K44.9 Diaphragmatic hernia without obstruction or gangrene; I25.10 Atherosclerotic heart disease of native coronary artery without angina pectoris; I50.9 Heart failure, unspecified; N18.9 Chronic kidney disease, unspecified; E78.5 Hyperlipidemia, unspecified; E03.9 Hypothyroidism, unspecified; I13.0 Hypertensive heart and chronic kidney disease with heart failure and stage 1 through stage 4 chronic kidney disease, or unspecified chronic kidney disease; G47.33 Obstructive sleep apnea (adult) (pediatric); I48.0 Paroxysmal atrial fibrillation; Z87.891 Personal history of nicotine dependence
CPT/HCPCS: 43239; 88305; J2704; J7120

== ENCOUNTER 2024-02-14 12:53 | Emergency (ER) | payer MEDICARE, SELFPAY ==
[2024-02-14 13:02] VITALS: BP 125/83; PULSE 86; RESP 20; TEMP 36.6; O2SAT 97
--- NOTE | 2024-02-14 13:15 | ED.EAR ---
HPI - Ear Problem General Chief complaint: Ear Stated complaint: Both Ears Irritation Source: patient Mode of arrival: ambulatory Limitations: no limitations History of Present Illness HPI Narrative: 83-year-old hard of hearing female presented for complaint of worsening hearing over the past 2 days to both ears. Denies tinnitus, dizziness, ringing or drainage. Denies history of ear wax problems. Reports URI 2 weeks ago, completed abx. She states she was seen by her head nurse about one week ago. MD Complaint: ear pain Related Data Home Medications Medication Instructions Recorded Confirmed ezetimibe 10 mg tablet 10 mg PO DAILY 09/07/20 02/14/24 oxybutynin chloride 10 mg 10 mg PO DAILY 09/07/20 02/14/24 tablet,extended release 24 hr potassium chloride 20 mEq 20 meq PO DAILY 09/07/20 02/14/24 tablet,extended release(part/cryst) (Klor-Con M) esomeprazole magnesium 40 mg 40 mg PO DAILY 10/11/20 02/14/24 capsule,delayed release apixaban 5 mg tablet (Eliquis) 5 mg PO BID 10/18/20 02/14/24 furosemide 40 mg tablet 40 mg PO DAILY 03/06/21 02/14/24 hydroxyzine HCl 25 mg tablet 25 mg PO 4-6XD PRN Itching 03/06/21 02/14/24 losartan 25 mg tablet 25 mg PO EVERY OTHER DAY 03/06/21 02/14/24 magnesium oxide 400 mg (241.3 mg 1,200 mg PO QACDINNER 03/06/21 02/14/24 magnesium) tablet metoprolol tartrate 50 mg tablet 50 mg PO BID 04/26/21 02/14/24 vitamin B complex 2 tablet PO DAILY 11/26/22 02/14/24 citalopram 40 mg tablet 40 mg PO DAILY 02/05/23 02/14/24 Prevagen 1 cap PO DAILY 12/19/23 02/14/24 apple cider vinegar 300 mg tablet 900 mg PO DAILY 12/19/23 02/14/24 calcium citrate 200 mg (950 mg) 400 mg PO DAILY 12/19/23 02/14/24 tablet cholecalciferol (vitamin D3) 10 10 mcg PO DAILY 12/19/23 02/14/24 mcg (400 unit) tablet (Vitamin D3) coQ10 (ubiquinol) 100 mg capsule 100 mg PO DAILY 12/19/23 02/14/24 docusate sodium 100 mg tablet 100 mg PO HS 12/19/23 02/14/24 krill 350 mg-omega-3 90 mg-dha 24 2 cap PO DAILY 12/19/23 02/14/24 mg-epa 50 zs-qkavxzc-mauaz capsule ([place]-3 Krill Oil) levothyroxine 75 mcg tablet 75 mcg PO DAILY 12/19/23 02/14/24 Allergies Allergy/AdvReac Type Severity Reaction Status Date / Time Agwwbmg-VHJ-WuS Reductase Allergy Intermediate ACHY Verified 02/14/24 12:57 Inhibitor MUSCLES [Ehmjhze-Okk-Nkn Reductase Inhibitor] povidone-iodine Allergy Mild blisters Verified 02/14/24 12:57 Review of Systems Review of Systems: CONSTITUTIONAL: Denies malaise, chills, or fever. EYES: Denies visual changes, redness, or discharge. ENT: Denies rhinorrhea, congestion, sinus pain, and sore throat. Reports decreased hearing CARDIOVASCULAR: Denies chest pain, palpitations, or edema. RESPIRATORY: Denies cough or dyspnea. GASTROINTESTINAL: Denies abdominal pain, nausea, vomiting, diarrhea SKIN: Denies rash or itching. MUSCULOSKELETAL: Denies myalgia. NEUROLOGIC: Denies headache. All systems reviewed & are unremarkable except as noted in HPI and below PMFSH Past Medical History Medical History Barretts esophagus CAD (coronary artery disease) [facility] 09/08/20 with 50% proximal and mid LAD, LCX 40-50% stenosis, nondominant small caliber RCA with widely patent previously placed stent mid LAD. Again identified is the subtotal occlusion 99% of the 2nd obtuse marginal branch with mosl-au-edgg collateral filling largely unchanged compared to [facility] 2017. CHF (congestive heart failure) Chronic kidney disease Depression with anxiety Dyslipidemia Dysphagia Hiatal hernia Hypertension Hypothyroid Mitral regurgitation ESTEBAN (obstructive sleep apnea) Paroxysmal atrial fibrillation Surgical History Surgical History History of cataract surgery History of cholecystectomy History of tonsillectomy Family History Family History Father Acute myocard
== END 2024-02-14 13:20 | disposition home or self-care (01) ==
PROVIDERS: Emergency Provider Nurse Practitioner Family; PCP Family Medicine
DX: H69.93 Unspecified Eustachian tube disorder, bilateral (principal); Z87.891 Personal history of nicotine dependence; K22.70 Barrett's esophagus without dysplasia; I25.10 Atherosclerotic heart disease of native coronary artery without angina pectoris; I13.0 Hypertensive heart and chronic kidney disease with heart failure and stage 1 through stage 4 chronic kidney disease, or unspecified chronic kidney disease; N18.9 Chronic kidney disease, unspecified; I50.9 Heart failure, unspecified; E78.5 Hyperlipidemia, unspecified; E03.9 Hypothyroidism, unspecified; I34.1 Nonrheumatic mitral (valve) prolapse; I48.0 Paroxysmal atrial fibrillation
CPT/HCPCS: 99211; G0463

== ENCOUNTER 2024-03-05 20:20 | Inpatient (IN) | payer MEDICARE, SELFPAY ==
--- NOTE | ~2024-03-05 | XR_ITS ---
EXAMINATION: XR chest 2V DATE: 03/05/2024 21:08 INDICATION: Altered mental status. TECHNIQUE: Frontal and lateral views of the chest were obtained. COMPARISON: None. FINDINGS: There are airspace opacities in the lower lung zones. There is a small right pleural effusi on. No pneumothorax. Cardiomegaly is noted. There is a left chest pacer with leads in right atrium, r ight ventricle, and coronary sinus. There is a large hiatal hernia. Surgical clips in the right upper quadrant are likely from cholecystectomy. There is a chronic compression fracture of T12. IMPRESSION: 1. Airspace opacities in the lower lung zones, consistent with atelectasis versus pneumonia. 2. Small right pleural effusion. 3. Cardiomegaly. 4. Large hiatal hernia. Reviewed, dictated and finalized at location E. IMPRESSION: 1. Airspace opacities in the lower lung zones, consistent with atelectasis vers us pneumonia. 2. Small right pleural effusion. 3. Cardiomegaly. 4. Large hiatal hernia.
--- NOTE | ~2024-03-05 | CT_ITS ---
EXAMINATION: CT brain wo con DATE: 03/05/2024 21:28 INDICATION: Confusion. Altered mental status. TECHNIQUE: Computed tomography (CT) of the head was performed without intravenous contrast. The mA wa s adjusted according to patient size. Iterative reconstruction technique was employed. The dose-lengt h product was 605.33 mGy-cm. COMPARISON: None FINDINGS: There are old infarcts in the bilateral basal ganglia. There are scattered areas of low att enuation in the cerebral white matter. There is no intracranial hemorrhage, acute infarction, or abno rmal intracranial mass lesion. The ventricles are normal in size. There are likely changes of ocular lens replacement surgeries. There is mild mucosal thickening in the ethmoid sinuses. There are bilate ral mastoid effusions. IMPRESSION: 1. 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 2. Moderate nonspecific cerebral white matter disease, which likely represents chronic small vessel i schemic disease. Reviewed, dictated and finalized at location E. IMPRESSION: 1. 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 2. Moderate nonspecific cerebral white matter disease, which likely represents chronic small vessel ischemic disease.
--- NOTE | ~2024-03-05 | XR_ITS ---
XR hip LT min 3V w AP pelvis 03/07/2024 09:03 Indication: Left hip pain after multiple falls Procedure: 4 views left hip including AP pelvis Comparison: No prior studies for comparison. 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 No fracture or traumatic malalignment. N o focal soft tissue abnormality. There are pelvic phleboliths. There is lower lumbar spondylosis part ially visualized. Impression: 1: No acute fracture. Reviewed, dictated and finalized at location A. Impression: 1: No acute fracture.
--- NOTE | ~2024-03-05 | XR_ITS ---
XR abdomen/kub 1V 03/07/2024 09:03 Indication: Abdominal pain Procedure: KUB Comparison: No prior studies for comparison. Findings: Bowel gas pattern nonobstructive. There are cholecystectomy clips. There are pelvic phlebol iths. There is severe lumbar spondylosis with levoscoliosis. There is osteoarthritis of the hips. The re is atherosclerosis of the left renal artery and aorta. Impression: 1: No acute abdominal abnormality. Reviewed, dictated and finalized at location A. Impression: 1: No acute abdominal abnormality.
[2024-03-05 20:18] VITALS: BP 130/93; PULSE 65; RESP 13; TEMP 36.7; O2SAT 94; O2SAT 96
[2024-03-05 20:31] VITALS: BP 108/65; PULSE 64; RESP 19; O2SAT 96
[2024-03-05 21:06] LABS: Basophils Absolute Auto 0.1 K/mm3 (0.0-0.1); Basophils Percent Auto 0.7 % (0.2-1.2); Eosinophils Absolute Auto 0.2 K/mm3 (0-0.3); Eosinophils Percent Auto 1.4 % (0-4.4); Hematocrit 37.7 % (37.0-47.0); Hemoglobin 12.4 g/dL (12.0-15.0); Immature Granulocyte Absolute 0.03 K/mm3 (0.00-0.031); Immature Granulocyte Percent A 0.3 % (0-0.5); Lymphocytes Absolute Auto 1.54 K/mm3 (0.9-3.2); Lymphocytes Percent Auto 13.3 % (18.3-44.2); Mean Corpuscular HGB Conc 32.9 g/dl (32-36); Mean Corpuscular Hemoglobin 31.3 pg (26-34); Mean Corpuscular Volume 95.2 fl (80-100); Mean Platelet Volume 9.9 fl (7.4-10.4); Monocytes Absolute Auto 1.3 K/mm3 (0.1-0.6); Monocytes Percent Auto 11.3 % (2.6-8.5); Neutrophils Absolute Auto 8.5 K/mm3 (1.3-6.7); Platelet Count Result 163 k/mm3 (150-375); Red Blood Count 3.96 M/mm3 (4.2-5.4); Red Cell Distribution Width 13.9 % (11.5-14.5); White Blood Count 11.6 K/mm3 (4.5-10.0)
[2024-03-05 21:15] LABS: Fractional Inspired Oxygen 21 %; HCO3 VBG 24.1 mEq/l (24.0-30.0); PCO2 VBG 46.5 mmHg (42.0-48.0); pH VBG 7.332 (7.300-7.400)
[2024-03-05 21:17] LABS: Device ROOM AIR; PO2 VBG < 27.0 mmHg (35.0-45.0)
[2024-03-05 21:17] LABS: Alanine Aminotransferase 52 U/L (6-35); Albumin Level 3.8 g/dL (3.5-5.1); Alkaline Phosphatase 79 U/L (38-126); Anion Gap 2 mmol/L (4-12); Aspartate Amino Transferase 86 U/L (14-36); Bilirubin,Total 0.7 mg/dL (0.2-1.3); Blood Urea Nitrogen 23 mg/dL (7-17); Calcium 8.8 mg/dL (8.4-10.2); Carbon Dioxide 29 mmol/L (22-30); Chloride 95 mmol/L (98-107); Estimated CRCL calculation 30 ml/min; Estimated Glomerular Filt Rate 39; Glucose 107 mg/dL (65-110); Potassium 4.6 mmol/L (3.4-5.0); Sodium 126 mmol/L (137-145)
[2024-03-05 21:18] LABS: Acetaminophen < 10 ug/mL (10-30); Ammonia < 9 umol/L (9-30); Ethanol < 10 mg/dL (<10); Salicylate < 1.0 mg/dL (2-20)
[2024-03-05 21:22] VITALS: PULSE 66; RESP 21; O2SAT 96
[2024-03-05] MEDS: SODIUM CHLORIDE 0.9% IV 500 ML 999 ML IV CONT (21:25)
[2024-03-05 21:27] LABS: INR 1.1; Prothrombin Time 14.3 Seconds (11.1-14.7)
[2024-03-05 21:28] LABS: Partial Thromboplastin Time 38.6 Seconds (22.3-36.8)
--- NOTE | 2024-03-05 21:35 | PC.NURSE ---
when pt came back from CT they informed me she had urinated in her depends during the scan. pt has a urine sample ordered so I bladder scanned to see if any urine was present to collect. the scan showed an empty bladder and I notified provider. no further orders at this time
--- NOTE | 2024-03-05 21:43 | ED.AMS ---
HPI - Altered Mental Status General Chief Complaint: Altered Mental Status Stated Complaint: confusion, weakness Time Seen by Provider: 03/05/24 20:28 History of Present Illness HPI narrative: This is an 83-year-old female, with history of AFib on Eliquis, hypothyroidism, discharged today from an outside hospital after hiatal hernia surgery with epidural pain control, brought in by EMS for altered mental status. The patient's family states she has appeared confused in at 6 appear to have some labored breathing. The patient does not have acute complaints. Related Data Home Medications Medication Instructions Recorded Confirmed ezetimibe 10 mg tablet 10 mg PO DAILY 09/07/20 03/06/24 oxybutynin chloride 10 mg 10 mg PO DAILY 09/07/20 03/06/24 tablet,extended release 24 hr esomeprazole magnesium 40 mg 40 mg PO DAILY 10/11/20 03/06/24 capsule,delayed release apixaban 5 mg tablet (Eliquis) 5 mg PO BID 10/18/20 03/06/24 furosemide 40 mg tablet 40 mg PO DAILY 03/06/21 03/06/24 hydroxyzine HCl 25 mg tablet 25 mg PO HS PRN Itching 03/06/21 03/06/24 losartan 25 mg tablet 25 mg PO EVERY OTHER DAY 03/06/21 03/06/24 magnesium oxide 400 mg (241.3 mg 800 mg PO QACDINNER 03/06/21 03/06/24 magnesium) tablet metoprolol tartrate 50 mg tablet 50 mg PO BID 04/26/21 03/06/24 citalopram 40 mg tablet 40 mg PO DAILY 02/05/23 03/06/24 apple cider vinegar 300 mg tablet 900 mg PO DAILY 12/19/23 03/06/24 calcium citrate 200 mg (950 mg) 400 mg PO DAILY 12/19/23 03/06/24 tablet cholecalciferol (vitamin D3) 10 50 mcg PO DAILY 12/19/23 03/06/24 mcg (400 unit) tablet (Vitamin D3) coQ10 (ubiquinol) 100 mg capsule 100 mg PO DAILY 12/19/23 03/06/24 docusate sodium 100 mg tablet 100 mg PO HS 12/19/23 03/06/24 krill 350 mg-omega-3 90 mg-dha 24 2 cap PO DAILY 12/19/23 03/06/24 mg-epa 50 bp-rznalpg-mhotx capsule ([place]-3 Krill Oil) levothyroxine 75 mcg tablet 75 mcg PO DAILY 12/19/23 03/06/24 B Complex 2 cap BYMOUTH DAILY 03/06/24 03/06/24 Allergies Allergy/AdvReac Type Severity Reaction Status Date / Time Bglshfd-TGP-PsP Reductase Allergy Intermediate ACHY Verified 03/06/24 00:43 Inhibitor MUSCLES [Wesxger-Wdm-Atp Reductase Inhibitor] povidone-iodine Allergy Mild blisters Verified 03/06/24 00:43 Review of Systems Review of Systems: CONSTITUTIONAL: Denies fever, chills, or sweats. ENT: Denies rhinorrhea, congestion, sore throat, or otalgia. CARDIOVASCULAR: Denies chest pain, palpitations, or edema. RESPIRATORY: Reported labor breathing by family. Denies cough or dyspnea. GASTROINTESTINAL: Denies abdominal pain, nausea, vomiting, or diarrhea. GENITOURINARY: Denies dysuria or hematuria. SKIN: Denies rash or itching. MUSCULOSKELETAL: Denies back pain, joint pain, or myalgia. NEUROLOGIC: Altered mental status. Denies headache, numbness, dizziness, or weakness. PSYCHIATRIC: Denies anxiety or depression. [facility] Past Medical History Medical History Barretts esophagus CAD (coronary artery disease) [facility] 09/08/20 with 50% proximal and mid LAD, LCX 40-50% stenosis, nondominant small caliber RCA with widely patent previously placed stent mid LAD. Again identified is the subtotal occlusion 99% of the 2nd obtuse marginal branch with bizd-bt-yrpi collateral filling largely unchanged compared to [facility] 2017. CHF (congestive heart failure) Chronic kidney disease Depression with anxiety Dyslipidemia Dysphagia Hiatal hernia Hypertension Hypothyroid Mitral regurgitation ESTEBAN (obstructive sleep apnea) Paroxysmal atrial fibrillation Surgical History Surgical History History of cataract surgery History of cholecystectomy History of tonsillectomy Family History Family History Father Acute myocardial infarction Sibling Diabetes mellitus Mother Dementia Hypertension Soc
[2024-03-05 21:48] LABS: Thyroid Stimulating Hormone 0.088 uIU/mL (0.465-4.680)
[2024-03-05 21:49] VITALS: BP 110/70; PULSE 65; RESP 29; O2SAT 96
[2024-03-05] MEDS: DOXYCYCLINE HYCLATE 100 MG TABLET PO (22:12)
[2024-03-05] MEDS: CEFEPIME 1 GM/NS 50 ML 1 GM/50 ML BAG IVPB (22:13)
--- NOTE | 2024-03-05 22:29 | PM.IMHP ---
H&P: HPI History of Present Illness Date/Time: 03/05/24 22:29 Chief Complaint: altered mental status Narrative: this is an 83-year-old female with past medical history significant for congestive heart failure, coronary artery disease, obstructive sleep apnea, paroxysmal atrial fibrillation, Eason's esophagus, chronic kidney disease,hiatal hernia status post repair status post up day 3 patient was discharged home, according to upon arriving to the house he was noted that she was very weak she had a fall called a neighbor to help get her up and patient was incoherent not making sense granddaughter came over and decided patient needed to go back to the hospital they call EMS and patient was brought to the emergency room. Patient is awake alert however cannot really give a meaningful history she is confused she is not making sense incoherent. Most of the history has been obtained from who is at bedside. preliminary workup was significant for chest x-ray with infiltrates. patient has been admitted for further evaluation management and treatment. EXAMINATION: XR chest 2V DATE: 03/05/2024 21:08 INDICATION: Altered mental status. TECHNIQUE: Frontal and lateral views of the chest were obtained. COMPARISON: None. FINDINGS: There are airspace opacities in the lower lung zones. There is a small right pleural effusion. No pneumothorax. Cardiomegaly is noted. There is a left chest pacer with leads in right atrium, right ventricle, and coronary sinus. There is a large hiatal hernia. Surgical clips in the right upper quadrant are likely from cholecystectomy. There is a chronic compression fracture of T12. IMPRESSION: 1. Airspace opacities in the lower lung zones, consistent with atelectasis versus pneumonia. 2. Small right pleural effusion. 3. Cardiomegaly. 4. Large hiatal hernia. EXAMINATION: CT brain wo con DATE: 03/05/2024 21:28 INDICATION: Confusion. Altered mental status. TECHNIQUE: Computed tomography (CT) of the head was performed without intravenous contrast. The mA was adjusted according to patient size. Iterative reconstruction technique was employed. The dose-length product was 605.33 mGy-cm. COMPARISON: None FINDINGS: There are old infarcts in the bilateral basal ganglia. There are scattered areas of low attenuation in the cerebral white matter. There is no intracranial hemorrhage, acute infarction, or abnormal intracranial mass lesion. The ventricles are normal in size. There are likely changes of ocular lens replacement surgeries. There is mild mucosal thickening in the ethmoid sinuses. There are bilateral mastoid effusions. IMPRESSION: 1. 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 2. Moderate nonspecific cerebral white matter disease, which likely represents chronic small vessel ischemic disease. Review of Systems Review of Systems: ROS unobtainable: Yes unobtainable due to mental status ( confusion, delirium) [facility] Past Medical History Medical History Barretts esophagus CAD (coronary artery disease) [facility] 09/08/20 with 50% proximal and mid LAD, LCX 40-50% stenosis, nondominant small caliber RCA with widely patent previously placed stent mid LAD. Again identified is the subtotal occlusion 99% of the 2nd obtuse marginal branch with xsif-gn-taoh collateral filling largely unchanged compared to [facility] 2017. CHF (congestive heart failure) Chronic kidney disease Depression with anxiety Dyslipidemia Dysphagia Hiatal hernia Hypertension Hypothyroid Mitral regurgitation ESTEBAN (obstructive sleep apnea) Paroxysmal atrial fibrillation Surgical History Surgical History History of cataract surgery History of cholecystectomy History of tonsillectomy Family History Family History Father Acute myocardial infarction Sibling Diabete
--- NOTE | 2024-03-05 22:55 | PC.NURSE ---
care and report given to JASMYNE Grier. all questions answered
[2024-03-06] VITALS (9 sets, daily range): BP systolic 90–129; BP diastolic 48–74; PULSE 60–88; RESP 15–18; TEMP 36.4–37.2; O2SAT 91–97; BMI 26.3
--- NOTE | 2024-03-06 00:25 | ADMGEN ---
This patient, Aster Nevarez, was admitted to 2 Medical Room 254-01. Patient/family oriented to hospital policies and general routines including ID bracelet, bed and alarms, visiting hours, pain management, procedures, bathroom and other care routines, personal items, smoking policy, room service/diet, and visiting hours. Information on how to activate the Rapid Response Team has been discussed. Patient/Family are encouraged to report perceived risks to care and to ask questions if they do not understand what they are told or what they should do.
[2024-03-06 00:34] LABS: Amphetamine Screen Urine Negative (Negative); Barbiturate Screen Urine Negative (Negative); Benzodiazepines Screen Urine Negative (Negative); Cannabinoid Screen Urine Negative (Negative); Cocaine Screen Urine Negative (Negative); Methadone Screen Urine Negative (Negative); Opiate Screen Urine Negative (Negative); Phencyclidine Screen Urine Negative (Negative)
[2024-03-06 00:37] LABS: Appearance Urine Cloudy (Clear); Bacteria Urine None Seen /hpf; Bilirubin Urine Negative (Negative); Blood Urine Negative (Negative); Color Urine Yellow (Yellow); Glucose Urine UA Negative (Negative); Ketones Urine Negative (Negative); Leukocyte Esterase Ur 3+ LEU/UL (Negative); Need Manual Microscopic Reviewed; Nitrate Urine Negative (Negative); Protein Urine Negative (Negative); RBC Urine 0-2 /hpf (0-2); Specific Grav Ur 1.006 (1.001-1.035); Squamous Epithelial Cell Urine None Seen /hpf (Few); Urobilinogen Urine 0.2 mg/dL (<2.0); WBC Urine >100 /hpf (0-3)
[2024-03-06 00:38] LABS: Add Urine Microscopic? YES
[2024-03-06 04:36] LABS: Basophils Absolute Auto 0.1 K/mm3 (0.0-0.1); Basophils Percent Auto 0.9 % (0.2-1.2); Eosinophils Absolute Auto 0.1 K/mm3 (0-0.3); Hematocrit 38.3 % (37.0-47.0); Hemoglobin 12.4 g/dL (12.0-15.0); Immature Granulocyte Absolute 0.04 K/mm3 (0.00-0.031); Immature Granulocyte Percent A 0.5 % (0-0.5); Lymphocytes Absolute Auto 1.41 K/mm3 (0.9-3.2); Lymphocytes Percent Auto 17.3 % (18.3-44.2); Mean Corpuscular HGB Conc 32.4 g/dl (32-36); Mean Corpuscular Hemoglobin 31.2 pg (26-34); Mean Corpuscular Volume 96.5 fl (80-100); Mean Platelet Volume 9.8 fl (7.4-10.4); Neutrophils Absolute Auto 5.6 K/mm3 (1.3-6.7); Neutrophils Percent Auto 68.3 % (45.5-73.1); Platelet Count Result 169 k/mm3 (150-375); Red Blood Count 3.97 M/mm3 (4.2-5.4); White Blood Count 8.1 K/mm3 (4.5-10.0)
[2024-03-06 04:44] LABS: Anion Gap 6 mmol/L (4-12); Blood Urea Nitrogen 22 mg/dL (7-17); Calcium 8.9 mg/dL (8.4-10.2); Carbon Dioxide 24 mmol/L (22-30); Chloride 99 mmol/L (98-107); Estimated CRCL calculation 29 ml/min; Estimated Glomerular Filt Rate 43; Glucose 124 mg/dL (65-110); Potassium 4.5 mmol/L (3.4-5.0); Sodium 129 mmol/L (137-145)
[2024-03-06] MEDS: ACETAMINOPHEN 325 MG TABLET 650 MG PO ×2 (05:26→13:27)
[2024-03-06] MEDS: LEVOTHYROXINE SODIUM 75 MCG TABLET PO (05:27)
--- NOTE | 2024-03-06 07:13 | PM.IMPN ---
Progress Note: A&P Assessment and Plan (1) Pneumonia: Qualifiers: Laterality: bilateral Lung location: lower lobe of lung Pneumonia type: due to unspecified organism Qualified Code(s): J18.9 - Pneumonia, unspecified organism Code(s): J18.9 - Pneumonia, unspecified organism Status: Acute Assessment and Plan: CXR: Airspace opacities in the lower lung zones, consistent with atelectasis versus pneumonia. Small right pleural effusion. Cardiomegaly. Large hiatal hernia. - Risk Factors: recent hospitalization at [facility], recent surgery, comorbidities - Complicating Factors: comorbidities - started on HAP tx: received doxycycline and cefepime in ED. Started Cefepime 2g BID (renal dosing) on 03/06/24 - Viral PCR: Flu/COVID/RSV pending - MRSA pending - no supplemental O2 requirement - supportive treatment tyl and ibu prn - trend labs (2) Hiatal hernia: Code(s): K44.9 - Diaphragmatic hernia without obstruction or gangrene Status: Acute Assessment and Plan: Patient recently underwent a hiatal hernia repair on 03/04 at [facility] with Dr. Dale. Chest XR obtained on 03/05 continues to show a large hiatal hernia. Per patient surgery was successful, however will obtain records from [facility] to confirm. Patient denies nausea/vomiting, shortness of breath, and early satiety. - Protonix 40 mg (3) Acute confusion: Code(s): R41.0 - Disorientation, unspecified Status: Acute Assessment and Plan: Likely secondary to current illness. 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 Moderate nonspecific cerebral white matter disease, which likely represents chronic small vessel ischemic disease. AOx4 today. - Supportive care (4) Acute hyponatremia: Code(s): E87.1 - Hypo-osmolality and hyponatremia Status: Acute Assessment and Plan: Mild hyponatremia. Na 129. 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 - free water restriction to 1500 cc daily - continue to monitor sodium - urine sodium pending - urine osmol pending - serum osmol pending (5) Chronic systolic heart failure: Code(s): I50.22 - Chronic systolic (congestive) heart failure Status: Acute Assessment and Plan: Not in acute exacerbation. Continue home medications. - Holding lasix and losartan due to hypotension - Continue metoprolol 50 mg BID (6) Paroxysmal atrial fibrillation: Code(s): I48.0 - Paroxysmal atrial fibrillation Status: Acute Assessment and Plan: Rate controlled. - Current home medication: metoprolol 50 mg BID - Anticoagulation: eliquis 5 mg BID (7) Chronic kidney disease: Code(s): N18.9 - Chronic kidney disease, unspecified Status: Acute Assessment and Plan: Followed by Nephrology Dr. Aguilar. Last seen on 12/17/23. Creatinine runs ~ 1.1 - 1.4mg/dl at its best causing her to bounce between CKD stage 3A and stage 3B. BUN/Cr /.20 today. - Continue to monitor - Avoid nephrotoxic medications (8) ESTEBAN (obstructive sleep apnea): Code(s): G47.33 - Obstructive sleep apnea (adult) (pediatric) Status: Acute Assessment and Plan: CPAP at night. (9) Fall: Code(s): W19.XXXA - Unspecified fall, initial encounter Status: Acute Assessment and Plan: Patient had an unwitnessed fall on 03/05. She denies head trauma and head CT was unremarkable. She was quickly assisted to a chair by her neighbor and . Per patient she typically walks on her treadmill for 30 minutes a day without issue. She notes that when she well her legs became weak and gave out on her. Weakness likely related to ongoing illness and recent surgery. She denies any pain at this time. - PT/OT Time Spent With Patient Time with patient: 25 - 35 minutes Subjective Date/time seen: 03/06/24 07:13 Interval history: 83 year old female with past medical history of CHF, atrial fibrillation, ESTEBAN,
[2024-03-06 07:40] LABS: Alanine Aminotransferase 70 U/L (6-35); Aspartate Amino Transferase 108 U/L (14-36)
[2024-03-06] MEDS: METOPROLOL TARTRATE 50 MG TAB PO ×2 (08:00→20:24)
[2024-03-06] MEDS: APIXABAN 5 MG TABLET PO ×2 (08:00→20:20)
[2024-03-06] MEDS: oxyBUTYnin CHLORIDE XL 5 MG TAB.ER.24 10 MG PO (08:00)
[2024-03-06] MEDS: PANTOPRAZOLE 40 MG TABLET PO (08:00)
[2024-03-06] MEDS: CEFEPIME 2 GM/NS 50 ML 2 GM/50 ML BAG IVPB ×2 (08:00→20:24)
[2024-03-06 08:06] LABS: T4 Thyroxine 9.57 ug/dL (5.53-11.0)
[2024-03-06 11:29] LABS: Influenza A QL RT-PCR Negative (Negative); Influenza B QL RT-PCR Negative (Negative); RSV RNA, RT-PCR Negative (Negative); SARS-CoV-2 RNA PCR Negative (Negative)
[2024-03-06 12:03] LABS: MRSA (PCR) NOT DETECTED (NOT DETECTE)
[2024-03-06 15:42] LABS: Sodium Urine Random < 5 meq/L
[2024-03-06] MEDS: LIDOCAINE 5% PATCH 1 PATCH TRANSDERM (18:47)
[2024-03-06] MEDS: DOCUSATE SODIUM 100 MG CAPSULE PO (20:20)
[2024-03-07] MEDS: ACETAMINOPHEN 325 MG TABLET 650 MG PO ×2 (03:46→08:43)
[2024-03-07 04:56] VITALS: BP 132/83; PULSE 67; RESP 18; TEMP 36.6; O2SAT 93
[2024-03-07 05:08] LABS: Basophils Absolute Auto 0.1 K/mm3 (0.0-0.1); Basophils Percent Auto 0.9 % (0.2-1.2); Eosinophils Absolute Auto 0.1 K/mm3 (0-0.3); Eosinophils Percent Auto 1.2 % (0-4.4); Hematocrit 37.5 % (37.0-47.0); Hemoglobin 12.4 g/dL (12.0-15.0); Immature Granulocyte Absolute 0.04 K/mm3 (0.00-0.031); Immature Granulocyte Percent A 0.4 % (0-0.5); Lymphocytes Percent Auto 17.5 % (18.3-44.2); Mean Corpuscular HGB Conc 33.1 g/dl (32-36); Mean Corpuscular Hemoglobin 31.6 pg (26-34); Mean Corpuscular Volume 95.4 fl (80-100); Monocytes Absolute Auto 1.6 K/mm3 (0.1-0.6); Monocytes Percent Auto 15.1 % (2.6-8.5); Neutrophils Absolute Auto 6.7 K/mm3 (1.3-6.7); Neutrophils Percent Auto 64.9 % (45.5-73.1); Platelet Count Result 182 k/mm3 (150-375); Red Blood Count 3.93 M/mm3 (4.2-5.4); Red Cell Distribution Width 13.5 % (11.5-14.5); White Blood Count 10.3 K/mm3 (4.5-10.0)
[2024-03-07 05:18] LABS: Alanine Aminotransferase 74 U/L (6-35); Albumin Level 3.7 g/dL (3.5-5.1); Alkaline Phosphatase 93 U/L (38-126); Anion Gap 7 mmol/L (4-12); Aspartate Amino Transferase 90 U/L (14-36); Bilirubin,Total 1.1 mg/dL (0.2-1.3); Blood Urea Nitrogen 18 mg/dL (7-17); Carbon Dioxide 22 mmol/L (22-30); Chloride 96 mmol/L (98-107); Estimated CRCL calculation 34 ml/min; Estimated Glomerular Filt Rate 53; Glucose 126 mg/dL (65-110); Potassium 4.7 mmol/L (3.4-5.0); Sodium 125 mmol/L (137-145)
[2024-03-07] MEDS: LEVOTHYROXINE SODIUM 75 MCG TABLET PO (06:53)
--- NOTE | 2024-03-07 08:13 | PM.IMPN ---
Progress Note: A&P Assessment and Plan (1) Pneumonia: Qualifiers: Laterality: bilateral Lung location: lower lobe of lung Pneumonia type: due to unspecified organism Qualified Code(s): J18.9 - Pneumonia, unspecified organism Code(s): J18.9 - Pneumonia, unspecified organism Status: Acute Assessment and Plan: CXR: Airspace opacities in the lower lung zones, consistent with atelectasis versus pneumonia. Small right pleural effusion. Cardiomegaly. Large hiatal hernia. - Risk Factors: recent hospitalization at [facility], recent surgery, comorbidities - Complicating Factors: comorbidities - started on HAP tx: received doxycycline and cefepime in ED. Started Cefepime 2g BID (renal dosing) on 03/06/24 - Viral PCR: Flu/COVID/RSV pending - MRSA pending - no supplemental O2 requirement - supportive treatment tyl and ibu prn - trend labs (2) Hiatal hernia: Code(s): K44.9 - Diaphragmatic hernia without obstruction or gangrene Status: Acute Assessment and Plan: Patient recently underwent a hiatal hernia repair on 03/04 at [facility] with Dr. Dale. Chest XR obtained on 03/05 continues to show a large hiatal hernia. Per patient surgery was successful, however will obtain records from [place] to confirm. Patient denies nausea/vomiting, shortness of breath, and early satiety. - Protonix 40 mg (3) Acute confusion: Code(s): R41.0 - Disorientation, unspecified Status: Acute Assessment and Plan: Likely secondary to current illness. 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 Moderate nonspecific cerebral white matter disease, which likely represents chronic small vessel ischemic disease. AOx4 today. - Supportive care (4) Acute hyponatremia: Code(s): E87.1 - Hypo-osmolality and hyponatremia Status: Acute Assessment and Plan: Hyponatremia. Na 125. - NS 100 ml/hr - continue to monitor sodium - urine sodium <5 - urine osmol pending - serum osmol pending (5) Chronic systolic heart failure: Code(s): I50.22 - Chronic systolic (congestive) heart failure Status: Acute Assessment and Plan: Not in acute exacerbation. Continue home medications. - Holding lasix and losartan due to hypotension - Continue metoprolol 50 mg BID (6) Paroxysmal atrial fibrillation: Code(s): I48.0 - Paroxysmal atrial fibrillation Status: Acute Assessment and Plan: Rate controlled. - Current home medication: metoprolol 50 mg BID - Anticoagulation: eliquis 5 mg BID (7) Chronic kidney disease: Code(s): N18.9 - Chronic kidney disease, unspecified Status: Acute Assessment and Plan: Followed by Nephrology Dr. Aguilar. Last seen on 12/17/23. Creatinine runs ~ 1.1 - 1.4mg/dl at its best causing her to bounce between CKD stage 3A and stage 3B. BUN/Cr 08/12.20 today. - Continue to monitor - Avoid nephrotoxic medications (8) ESTEBAN (obstructive sleep apnea): Code(s): G47.33 - Obstructive sleep apnea (adult) (pediatric) Status: Acute Assessment and Plan: CPAP at night. (9) Fall: Code(s): W19.XXXA - Unspecified fall, initial encounter Status: Acute Assessment and Plan: Patient had an unwitnessed fall on 03/05. She denies head trauma and head CT was unremarkable. She was quickly assisted to a chair by her neighbor and . Per patient she typically walks on her treadmill for 30 minutes a day without issue. She notes that when she well her legs became weak and gave out on her. Weakness likely related to ongoing illness and recent surgery. She denies any pain at this time. - PT/OT Subjective Date/time seen: 03/07/24 08:13 Interval history: 83 year old female with past medical history of CHF, atrial fibrillation, ESTEBAN, CKD, hypothyroidism, barretts esophagus and hiatal hernia s/p repair on with Dr. Dale at [facility] presents to the hospital
[2024-03-07] MEDS: CEFEPIME 2 GM/NS 50 ML 2 GM/50 ML BAG IVPB (08:42)
[2024-03-07] MEDS: SODIUM CHLORIDE 0.9% IV 1,000 ML 100 ML IV CONT (08:42)
[2024-03-07 08:43] VITALS: PULSE 68
[2024-03-07] MEDS: PANTOPRAZOLE 40 MG TABLET PO (08:43)
[2024-03-07] MEDS: APIXABAN 5 MG TABLET PO (08:43)
[2024-03-07] MEDS: oxyBUTYnin CHLORIDE XL 5 MG TAB.ER.24 10 MG PO (08:43)
[2024-03-07] MEDS: METOPROLOL TARTRATE 50 MG TAB PO (08:43)
[2024-03-07] MEDS: LIDOCAINE 5% PATCH 1 PATCH TRANSDERM (08:46)
[2024-03-07] MEDS: AZITHROMYCIN 250 MG TABLET 500 MG PO (10:33)
[2024-03-07 12:04] LABS: Sodium 128 mmol/L (137-145)
--- NOTE | 2024-03-07 17:10 | PM.DS ---
DS: Admitting Diagnosis Discharge Date 03/07/24 Admitting Diagnosis Pneumonia Hiatal hernia Acute confusion Hyponatremia Chronic systolic heart failure Paroxysmal atrial fibrillation Chronic kidney disease Obstructive sleep apnea Fall DS: Discharge Diagnosis Discharge Diagnosis (1) Pneumonia: Qualifiers: Laterality: bilateral Lung location: lower lobe of lung Pneumonia type: due to unspecified organism Qualified Code(s): J18.9 - Pneumonia, unspecified organism Code(s): J18.9 - Pneumonia, unspecified organism Status: Acute (2) Hiatal hernia: Code(s): K44.9 - Diaphragmatic hernia without obstruction or gangrene Status: Acute (3) Acute confusion: Code(s): R41.0 - Disorientation, unspecified Status: Acute (4) Acute hyponatremia: Code(s): E87.1 - Hypo-osmolality and hyponatremia Status: Acute (5) Chronic systolic heart failure: Code(s): I50.22 - Chronic systolic (congestive) heart failure Status: Acute (6) Paroxysmal atrial fibrillation: Code(s): I48.0 - Paroxysmal atrial fibrillation Status: Acute (7) Chronic kidney disease: Code(s): N18.9 - Chronic kidney disease, unspecified Status: Acute (8) ESTEBAN (obstructive sleep apnea): Code(s): G47.33 - Obstructive sleep apnea (adult) (pediatric) Status: Acute (9) Fall: Code(s): W19.XXXA - Unspecified fall, initial encounter Status: Acute DS: Summary Hospital Course Reason for hospitalization: Pneumonia Hiatal hernia Acute confusion Hyponatremia Chronic systolic heart failure Paroxysmal atrial fibrillation Chronic kidney disease Obstructive sleep apnea Fall Hospital Course: 83 year old female with past medical history of CHF, atrial fibrillation, ESTEBAN, CKD, hypothyroidism, barretts esophagus and hiatal hernia s/p repair on with Dr. Dale at [facility] [place] presents to the hospital for AMS and a fall. Patient stayed overnight at [facility] for post operative recovery. She states that she got home and was increasingly weak and had a fall. She states that her legs just gave out from under her. She denies hitting her head at that time and head CT was unremarkable. She had hip pain and an XR showed no acute fracture. A chest XR was obtained and showed airspace opacities in the lower lung zones, consistent with atelectasis versus pneumonia, Small right pleural effusion, Cardiomegaly, and Large hiatal hernia. Patient was started on doxycycline and cefepime in the ED then switched to cefepime on 03/06. On day of discharge patient was ambulating without assistance and denied chest pain, shortness of breath, nausea/vomiting and changes in bowel/bladder. She was discharged home on Augmentin and azithromycin. During patients admission she was mildly hyponatremic and remained asymptomatic. She received an IV bolus and her sodium level responded. She will obtain a CMP in 3 days to reevaluate. Patient was discharged home with family in stable condition. She will obtain a CMP in 3 days to reevaluate sodium level and follow up with her primary care provider in 1 week. Discussed with her and the hiatal hernia on chest xr. They have a follow up appointment scheduled in march. Status at Discharge Functional status at discharge: independent ambulation Time Spent with Patient Time attestation: Total time spent providing and/or coordinating discharge services: Time spent: Greater than 30 minutes Exam Narrative: AF HR 67 RR 18 SpO2 99 BP 132/83 General: female in no acute respiratory distress who is nontoxic appearing, lying semi recumbent in bed. HEENT: Normocephalic. Atraumatic. Pupils equal round reactive to light. Extraocular movement intact. Sclera clear and anicteric. No facial asymmetry. Chest: Lungs are diminished to auscultation bilaterally. No wheezes or crackles. CV: Heart was regular rate and rhythm. S1-S2. No murmurs, gallops, or rubs. Ab
[2024-03-08 15:39] LABS: Osmolality, Urine 162 mOsm/kg (50-1200)
[2024-03-10 07:30] LABS: T3 Free 2.7
== END 2024-03-07 14:15 | disposition home or self-care (01) | DRG 194 ==
LOC: ANHED 21:48 → ANH2MED 23:32
PROVIDERS: Student in an Organized Health Care Education/Training Program; Admitting Provider Internal Medicine; Emergency Provider Preventive Medicine Aerospace Medicine; PCP Family Medicine; Visit Provider General Practice
DX: J18.9 Pneumonia, unspecified organism (principal); E87.1 Hypo-osmolality and hyponatremia; I13.0 Hypertensive heart and chronic kidney disease with heart failure and stage 1 through stage 4 chronic kidney disease, or unspecified chronic kidney disease; I50.22 Chronic systolic (congestive) heart failure; I48.0 Paroxysmal atrial fibrillation; I25.10 Atherosclerotic heart disease of native coronary artery without angina pectoris; I34.0 Nonrheumatic mitral (valve) insufficiency; N18.9 Chronic kidney disease, unspecified; E78.5 Hyperlipidemia, unspecified; E03.9 Hypothyroidism, unspecified; K44.9 Diaphragmatic hernia without obstruction or gangrene; K22.70 Barrett's esophagus without dysplasia; G47.33 Obstructive sleep apnea (adult) (pediatric); F32.A Depression, unspecified; F41.9 Anxiety disorder, unspecified; W19.XXXA Unspecified fall, initial encounter; Z20.822 Contact with and (suspected) exposure to COVID-19; Z79.01 Long term (current) use of anticoagulants; Z87.891 Personal history of nicotine dependence
CPT/HCPCS: 36415; 70450; 71046; 73502; 74018; 80048; 80053; 80307; 81001; 82140; 82803; 83930; 83935; 84295; 84300; 84436; 84443; 84450; 84460; 84480; 85025; 85610; 85730; 87040; 87086; 87637; 87641; 96361; 96365; 97161; 97165; 99285; A9270; G0378; J0692; J7030; J7040

== ENCOUNTER 2024-08-25 04:08 | Emergency (ER) | payer MEDICARE, SELFPAY ==
[2024-08-25 04:15] VITALS: BP 150/106; PULSE 59; RESP 15; TEMP 36.8; O2SAT 98
[2024-08-25 04:31] VITALS: BP 130/88; PULSE 59; RESP 15; O2SAT 96
--- NOTE | 2024-08-25 04:40 | ED_ITS ---
HPI - Epistaxis General Chief complaint: Epistaxis Stated complaint: NOSE BLEED SINCE 0200 Time Seen by Provider: 08/25/24 04:26 History of Present Illness HPI Narrative: 84-year-old female on Eliquis presents emergency department for evaluation for bleeding from her left nose that started 2 hours prior to arrival. Patient states she was attempting to get the bleeding stopped with a cold washcloth but was unsuccessful. Bleeding was controlled with nasal clamp placed at triage. Patient does take Eliquis for atrial fibrillation. Related Data Home Medications Medication Instructions Recorded Confirmed furosemide 40 mg tablet 40 mg PO DAILY 03/06/21 07/29/24 hydroxyzine HCl 25 mg tablet 25 mg PO HS PRN Itching 03/06/21 07/29/24 losartan 25 mg tablet 25 mg PO EVERY OTHER DAY 03/06/21 07/29/24 magnesium oxide 400 mg (241.3 mg 800 mg PO QACDINNER 03/06/21 07/29/24 magnesium) tablet metoprolol tartrate 50 mg tablet 50 mg PO BID 04/26/21 07/29/24 citalopram 40 mg tablet 40 mg PO DAILY 02/05/23 07/29/24 apple cider vinegar 300 mg tablet 900 mg PO DAILY 12/19/23 07/29/24 calcium citrate 400 mg PO DAILY 12/19/23 07/29/24 cholecalciferol (vitamin D3) 10 50 mcg PO DAILY 12/19/23 07/29/24 mcg (400 unit) tablet (Vitamin D3) coQ10 (ubiquinol) 100 mg capsule 100 mg PO DAILY 12/19/23 07/29/24 docusate sodium 100 mg tablet 100 mg PO HS 12/19/23 07/29/24 krill 350 mg-omega-3 90 mg-dha 24 2 cap PO DAILY 12/19/23 07/29/24 mg-epa 50 [id number]-doycv capsule ([place]-3 Krill Oil) levothyroxine 75 mcg tablet 75 mcg PO DAILY 12/19/23 07/29/24 B Complex 2 cap BYMOUTH DAILY 03/06/24 07/29/24 alendronate 70 mg tablet mg PO 07/29/24 07/29/24 Allergies Allergy/AdvReac Type Severity Reaction Status Date / Time Zxxiciq-ESU-HsG Reductase Allergy Intermediate ACHY Verified 07/29/24 08:53 Inhibitor MUSCLES [Lpnupuj-Spy-Nil Reductase Inhibitor] povidone-iodine Allergy Mild blisters Verified 07/29/24 08:53 Review of Systems Review of Systems: All systems reviewed & are unremarkable except as noted in HPI and below [facility] Past Medical History Medical History (Updated 08/25/24 @ 12:19 by Keyshawn Mendosa MD) Acute confusion Acute hyponatremia Acute respiratory failure with hypoxia Atrial fibrillation with RVR Barretts esophagus Benign hypertension with chronic kidney disease CAD (coronary artery disease) [facility] 09/08/20 with 50% proximal and mid LAD, LCX 40-50% stenosis, nondominant small caliber RCA with widely patent previously placed stent mid LAD. Again identified is the subtotal occlusion 99% of the 2nd obtuse marginal branch with [id number] collateral filling largely unchanged compared to [facility] 2017. Chest pain Chest pain CHF exacerbation Coagulopathy Depression with anxiety Dyslipidemia Fall Hiatal hernia Hyperkalemia Hypertension Hypokalemia Mitral regurgitation ESTEBAN (obstructive sleep apnea) Paroxysmal atrial fibrillation Pneumonia Stage 3a chronic kidney disease Surgical History Surgical History History of cataract surgery History of cholecystectomy History of tonsillectomy Family History Family History Father Acute myocardial infarction Sibling Diabetes mellitus Mother Dementia Hypertension Son Alcoholism Cancer Social History Social History Social History: Patient smoked 2 packs per day for 10 years quit in 1970. She drinks 1-2 alcoholic drinks per week. No drug use. She is a full code. She nominated her to be the individual who would make medical decisions for her if she is not able. She lives at home with her and a friend of the family. Smoking packs per day: 3 Smoking cigarettes per day: 60.0 Years smoked: 15 Smoking pack-years: 45.00 Smoking status: Former smoker Tobacco type: cigarettes Second hand tobacco smoke exposure: Yes Smoking end date: 11/17/88 Additional smoking assessment comments: patient does not smoke anymore, but does not know quit date Alcohol intake: current Drinks per week: 2 Substance use: never Substance use type: does not use Do You Feel Safe in your Home?: Yes Lack of Transportation: No Lack of Food: Never True Current Housing: I Have Housing Concerned About Future Housing: No Difficulty Paying Gas/Electric Bills: No Difficulty Paying for Meds: No Currently Unemployed: No Education: High School Diploma/GED Difficulty w/ Childcare or Family Care: No Living arrangements: with family Gender identity (if verbalized by the patient): Female Sexual Orientation (if Verbalized by the Patient): Straight or Heterosexual Spiritual care concerns: No Exam Narrative: APPEARANCE: Well appearing, no pain, no distress, well-nourished. HEAD: normocephalic, atraumatic. EYES: PERRLA/EOMI, conjunctivae clear. NOSE: Epistaxis from left EARS:TMS clear with good light reflex. THROAT: Pharynx clear, no exudate. NECK: Supple. No adenopathy, no masses. RESPIRATORY: Airway patent, respirations nonlabored. Clear to auscultation bilaterally, no rales, rhonchi, wheezing. CARDIOVASCULAR: Regular rate and rhythm without murmurs rubs or gallops. ABDOMINAL: Soft, nontender, nondistended, normal bowel sounds MUSCULOSKELETAL: Moves all extremities. Strength/ROM intact, No edema, No calf tenderness. NEURO: Alert. Cranial nerves II through XII intact. grossly intact SKIN: Warm, dry. Normal Color Course Vital Signs Vital signs: Vital Signs Temperature 98.2 F 08/25/24 04:15 Pulse Rate 59 L 08/25/24 04:15 Respiratory Rate 15 08/25/24 04:15 Blood Pressure 150/106 H 08/25/24 04:15 Pulse Oximetry 98 08/25/24 04:15 Oxygen Delivery Room Air 08/25/24 04:15 Temperature 98.2 F 08/25/24 04:15 Pulse Rate 59 L 08/25/24 05:10 Respiratory Rate 15 08/25/24 05:10 Blood Pressure 124/86 08/25/24 05:10 Pulse Oximetry 98 08/25/24 05:10 Oxygen Delivery Room Air 08/25/24 04:15 Procedures Epistaxis Control left: Epistaxis Control Time: 04:41 Time Out Performed: Yes Nose Prepped With: oxymetazoline Direct Inspection: yes and unable to visualize Clots Removed by: blowing nose Cautery Used: none Device Inserted: nasal tampon Device Size: 5 (5.5 cm) Patient Tolerated Procedure: well and no complications MDM - Epistaxis MDM Narrative Medical decision making narrative: 84-year-old female presents emergency department for evaluation for epistaxis. Patient's left naris was packed with Afrin-soaked gauze was and this did help with the bleeding. Patient was still having some bleeding posteriorly so a 5.5 cm rhino rocket was placed in left nostril with hemostasis. Patient had no active bleeding down her posterior pharynx. Patient was observed in the emergency department for 20 minutes and had no active rebleeding. As patient was walking to her car she did have some bleeding from the right nostril. Patient was brought back to the emergency department and bleeding did resolve. there is no active bleeding observed during the rest of her operation. Patient was discharged home with directions to have follow-up with ENT. Patient family were comfortable the plan for discharge and close follow-up. Patient was advised to hold her Eliquis for the next day or so and the risk of holding Eliquis was also discussed. Differential Diagnosis Differential diagnosis: Likely anterior epistaxis and posterior epistaxis Discharge Plan Discharge Clinical Impression: Epistaxis Patient Disposition: Home, Self-Care Condition: Stable Instructions: Antibiotic Form, Nosebleed (ED) Additional Instructions: Have close follow-up with ENT. If you are unable to get follow-up with ENT have close follow-up with your primary care physician. Rhino rocket/nasal packing needs to be removed in 2 days. Prescriptions: No Action alendronate 70 mg tablet PO Eliquis 5 mg tablet 5 mg PO BID Qty: 180 1RF esomeprazole magnesium 40 mg capsule,delayed release(DR/EC) 40 mg PO DAILY Qty: 90 1RF ezetimibe 10 mg tablet 10 mg PO DAILY Qty: 90 1RF Rx Instructions: takes in the afternoon furosemide 40 mg Tablet 40 mg PO DAILY magnesium oxide 400 mg (241.3 mg magnesium) Tablet 800 mg PO QACDINNER losartan 25 mg Tablet 25 mg PO EVERY OTHER DAY hydroxyzine HCl 25 mg Tablet 25 mg PO HS PRN (Reason: Itching) metoprolol tartrate 50 mg Tablet 50 mg PO BID citalopram 40 mg Tablet 40 mg PO DAILY levothyroxine 75 mcg tablet 75 mcg PO DAILY cholecalciferol (vitamin D3) [Vitamin D3] 10 mcg (400 unit) Tablet 50 mcg PO DAILY docusate sodium 100 mg Tablet 100 mg PO HS calcium citrate 200 mg (950 mg) Tablet 400 mg PO DAILY apple cider vinegar 300 mg Tablet 900 mg PO DAILY coQ10 (ubiquinol) 100 mg Capsule 100 mg PO DAILY [place]-3 Krill Oil [id number] mg Capsule 2 cap PO DAILY B Complex 2 cap BYMOUTH DAILY amoxicillin-pot clavulanate [Augmentin] 500-125 mg tablet 1 tablet PO TID Qty: 15 0RF Follow-up/Referrals: Mary Anne Anand APRN [Primary Care Provider] - Eugenio Guthrie MD [Physician] -
[2024-08-25 05:10] VITALS: BP 124/86; PULSE 59; RESP 15; O2SAT 98
== END 2024-08-25 05:47 | disposition home or self-care (01) ==
PROVIDERS: Emergency Provider Emergency Medicine; PCP Nurse Practitioner Family
DX: R04.0 Epistaxis (principal); I48.0 Paroxysmal atrial fibrillation; I25.10 Atherosclerotic heart disease of native coronary artery without angina pectoris; I13.0 Hypertensive heart and chronic kidney disease with heart failure and stage 1 through stage 4 chronic kidney disease, or unspecified chronic kidney disease; N18.31 Chronic kidney disease, stage 3a; I11.0 Hypertensive heart disease with heart failure; I50.9 Heart failure, unspecified; I34.0 Nonrheumatic mitral (valve) insufficiency; E78.5 Hyperlipidemia, unspecified; K22.70 Barrett's esophagus without dysplasia; K44.9 Diaphragmatic hernia without obstruction or gangrene; G47.33 Obstructive sleep apnea (adult) (pediatric); Z87.891 Personal history of nicotine dependence; Z79.01 Long term (current) use of anticoagulants
CPT/HCPCS: 30901; 30903; 99282; A9270

== ENCOUNTER 2024-08-25 10:16 | Emergency (ER) | payer MEDICARE, SELFPAY ==
[2024-08-25 10:21] VITALS: BP 139/93; PULSE 66; RESP 17; TEMP 36.4; O2SAT 100
[2024-08-25 11:00] VITALS: BP 130/78; PULSE 78; RESP 16; O2SAT 98
--- NOTE | 2024-08-25 11:05 | ED.EPISTAXIS ---
HPI - Epistaxis General Chief complaint: Epistaxis Stated complaint: epistaxis Time Seen by Provider: 08/25/24 10:35 History of Present Illness HPI Narrative: Patient is an 84-year-old female who presents ER with epistaxis. Left-sided. Seen last night. She had a rhino rocket placed but it fell out this morning and she continues to have some bleeding. She did hold her dose of Eliquis. No difficulty breathing or swelling. No additional concerns. Related Data Home Medications Medication Instructions Recorded Confirmed furosemide 40 mg tablet 40 mg PO DAILY 03/06/21 07/29/24 hydroxyzine HCl 25 mg tablet 25 mg PO HS PRN Itching 03/06/21 07/29/24 losartan 25 mg tablet 25 mg PO EVERY OTHER DAY 03/06/21 07/29/24 magnesium oxide 400 mg (241.3 mg 800 mg PO QACDINNER 03/06/21 07/29/24 magnesium) tablet metoprolol tartrate 50 mg tablet 50 mg PO BID 04/26/21 07/29/24 citalopram 40 mg tablet 40 mg PO DAILY 02/05/23 07/29/24 apple cider vinegar 300 mg tablet 900 mg PO DAILY 12/19/23 07/29/24 calcium citrate 400 mg PO DAILY 12/19/23 07/29/24 cholecalciferol (vitamin D3) 10 50 mcg PO DAILY 12/19/23 07/29/24 mcg (400 unit) tablet (Vitamin D3) coQ10 (ubiquinol) 100 mg capsule 100 mg PO DAILY 12/19/23 07/29/24 docusate sodium 100 mg tablet 100 mg PO HS 12/19/23 07/29/24 krill 350 mg-omega-3 90 mg-dha 24 2 cap PO DAILY 12/19/23 07/29/24 mg-epa 50 [id number]-pqszf capsule ([place]-3 Krill Oil) levothyroxine 75 mcg tablet 75 mcg PO DAILY 12/19/23 07/29/24 B Complex 2 cap BYMOUTH DAILY 03/06/24 07/29/24 alendronate 70 mg tablet mg PO 07/29/24 07/29/24 Allergies Allergy/AdvReac Type Severity Reaction Status Date / Time Yczrrzs-MQE-MaH Reductase Allergy Intermediate ACHY Verified 07/29/24 08:53 Inhibitor MUSCLES [Ospjrre-Ntn-Apc Reductase Inhibitor] povidone-iodine Allergy Mild blisters Verified 07/29/24 08:53 Review of Systems Constitutional: Constitutional: Reports no additional constitutional complaints ENT: Reports epistaxis, Denies nasal congestion and Denies sore throat Cardiovascular: Cardiovascular: Reports no additional cardiovascular complaints Respiratory: Respiratory: Reports no additional respiratory complaints [facility] Past Medical History Medical History (Updated 08/25/24 @ 12:19 by Keyshawn Mendosa MD) Acute confusion Acute hyponatremia Acute respiratory failure with hypoxia Atrial fibrillation with RVR Barretts esophagus Benign hypertension with chronic kidney disease CAD (coronary artery disease) [facility] 09/08/20 with 50% proximal and mid LAD, LCX 40-50% stenosis, nondominant small caliber RCA with widely patent previously placed stent mid LAD. Again identified is the subtotal occlusion 99% of the 2nd obtuse marginal branch with [id number] collateral filling largely unchanged compared to [facility] 2017. Chest pain Chest pain CHF exacerbation Coagulopathy Depression with anxiety Dyslipidemia Fall Hiatal hernia Hyperkalemia Hypertension Hypokalemia Mitral regurgitation ESTEBAN (obstructive sleep apnea) Paroxysmal atrial fibrillation Pneumonia Stage 3a chronic kidney disease Surgical History Surgical History History of cataract surgery History of cholecystectomy History of tonsillectomy Family History Family History Father Acute myocardial infarction Sibling Diabetes mellitus Mother Dementia Hypertension Son Alcoholism Cancer Social History Social History Social History: Patient smoked 2 packs per day for 10 years quit in 1969. She drinks 1-2 alcoholic drinks per week. No drug use. She is a full code. She nominated her to be the individual who would make medical decisions for her if she is not able. She lives at home with her and a friend of the family. Smoking packs per day: 3 Smoking cigarettes per
[2024-08-25 12:00] VITALS: BP 128/78; PULSE 80; RESP 16; TEMP 36.4; O2SAT 98
== END 2024-08-25 12:30 | disposition home or self-care (01) ==
PROVIDERS: Emergency Provider Emergency Medicine; PCP Nurse Practitioner Family
DX: R04.0 Epistaxis (principal); I48.0 Paroxysmal atrial fibrillation; I25.10 Atherosclerotic heart disease of native coronary artery without angina pectoris; I13.0 Hypertensive heart and chronic kidney disease with heart failure and stage 1 through stage 4 chronic kidney disease, or unspecified chronic kidney disease; N18.31 Chronic kidney disease, stage 3a; I11.0 Hypertensive heart disease with heart failure; I50.9 Heart failure, unspecified; I34.0 Nonrheumatic mitral (valve) insufficiency; E78.5 Hyperlipidemia, unspecified; K22.70 Barrett's esophagus without dysplasia; K44.9 Diaphragmatic hernia without obstruction or gangrene; G47.33 Obstructive sleep apnea (adult) (pediatric); Z87.891 Personal history of nicotine dependence; Z90.49 Acquired absence of other specified parts of digestive tract; Z98.49 Cataract extraction status, unspecified eye; Z79.01 Long term (current) use of anticoagulants; Z79.899 Other long term (current) drug therapy
CPT/HCPCS: 30901; 99282